=== PATIENT | female | born 1940 | race Caucasian/White ===

== ENCOUNTER 2021-08-29 19:53 | Inpatient (IN) ==
--- NOTE | 2021-08-29 21:51 | XRay Report ---
LEFT FEMUR 2 VIEWS CLINICAL HISTORY: Fall with left hip injury. FINDINGS: AP and crosstable lateral views of the left femur are obtained. No prior studies are availa ble for comparison at the time of dictation. The skeletal structures are osteopenic. There is a mildl y angulated intertrochanteric fracture of the left femur. Overlying soft tissue edema is noted. The d istal femur appears intact. The visualized bony pelvis is maintained. A right hip arthroplasty is par tially visualized. Moderate degenerative joint space narrowing is noted in the left hip. The left kne e joint is grossly maintained. IMPRESSION: Intertrochanteric left femoral fracture as above. Electronically signed by: Gordon Martinez M.D. 08/29/2021 9:50 PM
[2021-08-29] MEDS ORDERED: ONDANSETRON INJ 2 MG/ML 2 ML VIAL IV STA (21:53)
[2021-08-29] MEDS ORDERED: SODIUM CHLORIDE 0.9% 1000ML 1,000 ML IV SCH (22:00)
--- NOTE | 2021-08-29 22:03 | Emergency Department Note ---
History of Present Illness General Chief complaint: Fall Stated complaint: GLF- THIGH PAIN Time Seen by Provider: 08/29/21 20:21 History of Present Illness 81-year-old female presents to the ED with a chief complaint that she tripped over a hose on the ground causing her self to fall backwards mainly onto her le ft buttock area. She states that she was unable to get up on her own. She was helped up and came to the ED by ambulance. She complains of pain in the left femur area. She states that it sometimes is proximal and sometimes distal. She denies any other injuries. She states that she did not hit her head or have loss of consciousness. She denies any neck or back pains. Denies any abdominal pains, chest pains or shortness of breath. No recent illness. Denies presyncopal symptoms. Home Medications Medication Instructions Recorded Confirmed Type varicella-zoster glycoE [id number] 0.5 ml IM .COMPLEX #1 ea 12/28/20 05/28/21 Rx adj(PF) 50 mcg/0.5 mL IM susp, kit (Shingrix (PF)) Allergies Allergy/AdvReac Type Severity Reaction Status Date / Time acetaminophen [From Tylenol] AdvReac Verified 05/28/21 08:11 Past Med/Surg History Medical History HTN (hypertension) NO MEDS/PT DENIES Surgical History History of ankle surgery Rt History of cataract surgery LEFT History of colonoscopy History of surgery on right wrist History of tonsillectomy History of wisdom tooth extraction Status post hip replacement Rt Partial Family History Mother Breast cancer Brother Stroke Father Bladder cancer Other No family history of adverse response to anesthesia Denies family history of Ovarian cancer Prostate cancer Myocardial infarction Colorectal cancer Social History Smoking Status: Never smoker Second Hand Exposure: No; Hx Alcohol Use: No Hx Substance Use: No Preferred Language: Telugu Communication Ability: Effective Visual Impairment: Limited Hearing Ability: Normal Polymerization Helper Required: No Beliefs That Will Affect Care: Jehovah'S Witness Jehovah'S Witness Beliefs: BAPTISM marital status: Current Living Situation: Spouse current occupational status: retired How many Children do You have: 1 Feels Safe at Home: Yes Childhood Exposure to Second-Hand Smoke: No caffeine: Yes during the past year weight has: remained stable Dental Care, Regularly: Yes Physical Activity Frequency: Daily Seatbelt Use: always Sunscreen Use: Yes Assistive Devices: Contacts and Walker Review of Systems A total of 10 systems reviewed and were otherwise negative Physical Exam Vital Signs Vital Signs - 24 hr 08/29/21 19:56 Temperature 36.5 C Temperature Source Temporal Artery Scan Pulse Rate 95 H Respiratory Rate 18 Respiratory Effort / Characteristics Non-Labored Spontaneous Respiratory Depth Normal Respiratory Pattern Regular Blood Pressure 193/115 H Blood Pressure Mean 141 Blood Pressure Position Sitting Pulse Oximetry 97 Oxygen Delivery Method Room Air Sepsis Recent Fever Within 48 Hours No Sepsis New/Unexplained Change in Mental Status No Sepsis Action Taken by Nursing No Action Required CONSTITUTIONAL/VITAL SIGNS: Reviewed / noted above. GENERAL: Non-toxic in appearance. INTEGUMENTARY: Warm, dry, and [place]. HEAD: Normocephalic. EYES: without scleral icterus or trauma. ENT/OROPHARYNX: clear and moist. LYMPHADENOPATHY/NECK: Is supple without lymphadenopathy or meningismus. RESPIRATORY: Clear to auscultation bilaterally. No increased work of breathing. CARDIOVASCULAR: Regular rate and rhythm. GI/ABDOMEN: Soft and nontender. No organomegaly or pulsatile mass. EXTREMITIES: Warm and well perfused. The patient does not have any rotation or shortening. She has minimal pain with axial loading of the femur. The pain is primarily proximal, but she states occasionally it is distal. Range of motion with minimal discomfort BACK: No CVA tenderness. NEUROLOGICAL: Intact without focal deficits. PSYCHIATRIC: normal affect. MUSCULOSKELETAL: Normally developed with good muscle tone. TRIAGE NURSING DOCUMENTATION REVIEWED. Course Administered Medications Sodium Chloride (Nss 1000ml) 1,000 mls @ 250 mls/hr IV .Q4H DENSIE Stop: 08/30/21 01:59 Last Admin: 08/29/21 22:08 Dose: 250 mls/hr Documented by: [id number] Discontinued Medications Ondansetron HCl (Ondansetron Inj 2 Mg/Ml 2 Ml Vial) 4 mg IV NOW STA Stop: 08/29/21 21:54 Last Admin: 08/29/21 22:08 Dose: 4 mg Documented by: [id number] Medical Decision Making Differential Diagnosis Differential includes close head injury, intracranial bleed, facial trauma, cervical spine trauma, chest and thoracic trauma, abdominal and intra-abdominal trauma, spine neurologic trauma, extremity trauma. Medical Records Attestation: I reviewed the patient's medical records. Home Medications Current Medication List: was personally reviewed by me Laboratory Data Attestation: I reviewed the patient's lab results. Result diagrams: 08/29/21 22:05 08/29/21 22:05 Lab Results 08/29/21 Range/Units 22:05 WBC 14.67 H (4.8-10.8) K/uL RBC 4.34 (4.2-5.4) M/uL Hgb 13.6 (12.0-16.0) g/dL Hct 40.9 (37-47) % MCV 94.2 (80-100) fL MCH 31.3 (25-34) pg MCHC 33.3 (32-36) g/dL RDW Std Deviation 50.1 H (36.4-46.3) fL RDW Coeff of James 14.6 H (11.5-14.5) % Plt Count 322 (130-400) K/uL MPV 9.7 (7.4-10.4) fL Immature Gran % (Auto) 0.3 % Neut % (Auto) 87.3 % Lymph % (Auto) 6.8 % [place] % (Auto) 5.4 % Eos % (Auto) 0.1 % Baso % (Auto) 0.1 % Neut # (Auto) 12.80 H (1.4-6.5) K/uL Lymph # (Auto) 1.00 L (1.2-3.4) K/uL [place] # (Auto) 0.79 H (0.11-0.59) K/uL Eos # (Auto) 0.01 (0-0.5) K/uL Baso # (Auto) 0.02 (0-0.2) K/uL Immature Gran # (Auto) 0.05 H (0.00-0.02) K/uL Imaging Data Radiologist's Impression: Femur X-Ray 08/29/21 20:19 LEFT FEMUR 2 VIEWS CLINICAL HISTORY: Fall with left hip injury. FINDINGS: AP and crosstable lateral views of the left femur are obtained. No prior studies are available for comparison at the time of dictation. The skeletal structures are osteopenic. There is a mildly angulated intertrochanteric fracture of the left femur. Overlying soft tissue edema is noted. The distal femur appears intact. The visualized bony pelvis is maintained. A right hip arthroplasty is partially visualized. Moderate degenerative joint space narrowing is noted in the left hip. The left knee joint is grossly maintained. IMPRESSION: Intertrochanteric left femoral fracture as above. Electronically signed by: Gordon Martinez M.D. 08/29/2021 9:50 PM ECG Data Attestation: I personally reviewed and interpreted this ECG as follows: Additional Comments: Twelve-lead EKG: Per my interpretation there is a normal sinus rhythm at a rate of 93. No ST elevation. No PVCs. Normal QTC MDM Narrative 81-year-old female presents with a chief complaint of a fall. Details listed above. Did not strike her head or lose consciousness. Not presyncopal. Lost her balance. Landed on her left buttock region. X-ray shows a left inter trochanteric femur fracture. Hip fracture order set has been ordered. The patient will be seen by the hospitalist. Twelve-lead EKG shows normal sinus rhythm. CBC was unremarkable. Impression & Plan Closed intertrochanteric fracture of left hip Discharge Plan Visit Data Chief Complaint: Fall Stated Complaint: GLF- THIGH PAIN ED Provider: Nicolas Jacobo Discharge Problem: Closed intertrochanteric fracture of left hip Forms Stand Alone Forms: My [facility] Prescriptions Prescriptions: No Action Shingrix (PF) 50 mcg/0.5 mL suspension for reconstitution 0.5 ml IM .COMPLEX Qty: 1 RF: 1 Referrals Referrals: Lev Pool DO [Primary Care Provider] - Discharge Problem: Closed intertrochanteric fracture of left hip Qualifiers: Encounter type: initial encounter Fracture alignment: nondisplaced Qualified Code(s): S72.145A - Nondisplaced intertrochanteric fracture of left femur, initial encounter for closed fracture
[2021-08-29 22:12] LABS: Basophils # (auto) 0.02 K/uL (0-0.2); Basophils % (auto) 0.1 %; Eosinophils # (auto) 0.01 K/uL (0-0.5); Eosinophils % (auto) 0.1 %; Hematocrit (blood only) 40.9 % (37-47); Hemoglobin 13.6 g/dL (12.0-16.0); Immature Granulocytes # (auto) 0.05 K/uL (0.00-0.02); Immature Granulocytes % (auto) 0.3 %; Lymphocytes % (auto) 6.8 %; Mean Corpuscular Hemoglobin 31.3 pg (25-34); Mean Corpuscular Hgb Conc 33.3 g/dL (32-36); Mean Corpuscular Volume 94.2 fL (80-100); Mean Platelet Volume 9.7 fL (7.4-10.4); Monocytes # (auto) 0.79 K/uL (0.11-0.59); Monocytes % (auto) 5.4 %; Neutrophils % (auto) 87.3 %; Platelet Count 322 K/uL (130-400); RDW Coefficient of Variation 14.6 % (11.5-14.5); RDW Standard Deviation 50.1 fL (36.4-46.3); Red Blood Count 4.34 M/uL (4.2-5.4); White Blood Count 14.67 K/uL (4.8-10.8)
--- NOTE | 2021-08-29 22:20 | History & Physical Report ---
Date of Service August 29, 2021 Assessment & Plan (1) Closed intertrochanteric fracture of left hip: Plan: relatively healthy 81 yo F admitted for management of femur fracture. L Intertrochanteric Femur Fracture - orthopedics consult for surgical management - NPO @ [place] - iv morphine prn for pain control - PT/OT HTN - managed without medications? patient states she only has a problem in the hospital, but [facility] on medications [facility] - goal BP <220/120 Frequent Falls - appears to be mechanical fall due to sidewalk misalignment? - no electrolyte abnormalities - TTE ordered for evaluation of DVT ppx: SCD thigh FEN/GI: NPO @[place] Code Status: DNR/DNI Dispo: Med/Surg (2) Frequent falls: (3) Hypertension: History of Present Illness Primary Care Provider: Lev Pool, DO 81 yo F with hx partial R hip replacement admitted for L intertrochanteric femur fracture due to mechanical fall. She states she was walking on the sidewalk and fell backward on her left side. She denies any lightheadedness or dizzines leading up to the fall. Pain currently well controlled while laying in bed. was able to ambulate to bathroom with some assistance. Denies any numbness/tingling. Allergies Allergy/AdvReac Type Severity Reaction Status Date / Time acetaminophen [From Tylenol] AdvReac Gastrointestinal Verified 08/29/21 22:29 Upset Home Medications Medication Instructions Recorded Confirmed Type varicella-zoster glycoE [id number] 0.5 ml IM .COMPLEX #1 ea 12/28/20 08/29/21 Rx adj(PF) 50 mcg/0.5 mL IM susp, kit (Shingrix (PF)) aspirin 81 mg tablet,delayed 81 mg PO DAILY 08/29/21 08/29/21 History release (Aspirin Low Dose) Past Med/Surg History Medical History HTN (hypertension) NO MEDS/PT DENIES Surgical History History of ankle surgery Rt History of cataract surgery LEFT History of colonoscopy History of surgery on right wrist History of tonsillectomy History of wisdom tooth extraction Status post hip replacement Rt Partial Family History Mother Breast cancer Brother Stroke Father Bladder cancer Other No family history of adverse response to anesthesia Denies family history of Ovarian cancer Prostate cancer Myocardial infarction Colorectal cancer Social History Smoking Status: Never smoker Second Hand Exposure: No; Hx Alcohol Use: No Hx Substance Use: No Preferred Language: Maori Communication Ability: Effective Visual Impairment: Limited Hearing Ability: Normal Stem Crusher Required: No Beliefs That Will Affect Care: Muslim Muslim Beliefs: RELIGIOUS marital status: Current Living Situation: Spouse current occupational status: retired How many Children do You have: 1 Feels Safe at Home: Yes Childhood Exposure to Second-Hand Smoke: No caffeine: Yes during the past year weight has: remained stable Dental Care, Regularly: Yes Physical Activity Frequency: Daily Seatbelt Use: always Sunscreen Use: Yes Assistive Devices: Cane and Walker Review of Systems Constitutional: no fever, no chills, no body aches and no fatigue Respiratory: no cough and no dyspnea Cardiovascular: no chest pain, no dyspnea and no edema Gastrointestinal: no abdominal pain, no nausea, no vomiting, no constipation and no diarrhea/loose stools Musculoskeletal: + deformity and + limited range of motion; no back pain, no neck pain, no loss of height, no joint pain, no stiffness and no myalgia Neurologic: + gait abnormality and + falls; no unsteadiness, no generalized weakness, no loss of sensation and no numbness Physical Exam Physical Exam: Constitutional: well appearing elderly female sitting in bed in NAD Eyes: EOMI, pupils equal and reactive bilaterally, no scleral icterus Cardiac: RRR, no murmurs, gallops or rubs. Normal S1, S2 Pulm: CTA BL, no wheezes, rhonchi, crackles or rubs, moving air well throughout both lungs Abd: soft, nontender, nondistended, normal bowel sounds, no rebound or guarding Extremities: 2+ peripheral pulses, no edema,externally rotated left leg Neuro: normal sensation, full ROM at L ankle Results & Data Results & Data ([facility]) Vital Signs (Past 12 Hours) Vital Signs Temp Pulse Resp BP Pulse Ox 08/29/21 19:56 36.5 C 95 H 18 193/115 H 97 Laboratory Results Laboratory Results WBC 14.67 K/uL (4.8-10.8) H 08/29/21 22:05 RBC 4.34 M/uL (4.2-5.4) 08/29/21 22:05 Hgb 13.6 g/dL (12.0-16.0) 08/29/21 22:05 Hct 40.9 % (37-47) 08/29/21 22:05 MCV 94.2 fL (80-100) 08/29/21 22:05 MCH 31.3 pg (25-34) 08/29/21 22:05 MCHC 33.3 g/dL (32-36) 08/29/21 22:05 RDW Std Deviation 50.1 fL (36.4-46.3) H 08/29/21 22:05 RDW Coeff of James 14.6 % (11.5-14.5) H 08/29/21 22:05 Plt Count 322 K/uL (130-400) 08/29/21 22:05 MPV 9.7 fL (7.4-10.4) 08/29/21 22:05 Immature Gran % (Auto) 0.3 % 08/29/21 22:05 Neut % (Auto) 87.3 % 08/29/21 22:05 Lymph % (Auto) 6.8 % 08/29/21 22:05 [place] % (Auto) 5.4 % 08/29/21 22:05 Eos % (Auto) 0.1 % 08/29/21 22:05 Baso % (Auto) 0.1 % 08/29/21 22:05 Neut # (Auto) 12.80 K/uL (1.4-6.5) H 08/29/21 22:05 Lymph # (Auto) 1.00 K/uL (1.2-3.4) L 08/29/21 22:05 [place] # (Auto) 0.79 K/uL (0.11-0.59) H 08/29/21 22:05 Eos # (Auto) 0.01 K/uL (0-0.5) 08/29/21 22:05 Baso # (Auto) 0.02 K/uL (0-0.2) 08/29/21 22:05 Immature Gran # (Auto) 0.05 K/uL (0.00-0.02) H 08/29/21 22:05 PT 10.3 Seconds (9.0-12.0) 08/29/21 22:05 INR 1.0 (0.9-1.1) 08/29/21 22:05 APTT 24.0 Seconds (21.0-31.0) 08/29/21 22:05 PTT Ratio 0.9 08/29/21 22:05 Sodium 143 mmol/L (136-145) 08/29/21 22:05 Potassium 3.5 mmol/L (3.5-5.1) 08/29/21 22:05 Chloride 112 mmol/L (98-107) H 08/29/21 22:05 Carbon Dioxide 22 mmol/L (21-32) 08/29/21 22:05 Anion Gap 9.0 (3-11) 08/29/21 22:05 BUN 12 mg/dl (7-18) 08/29/21 22: Creatinine 0.94 mg/dl (0.6-1.2) 08/29/21: Est Cr Clr Drug Dosing Not Reportable 08/29/21 22:05 Est GFR ( Amer) 65.0 ml/min 08/29/21 22: Est GFR (Non-Af Amer) 56.1 ml/min 08/29/21 22:05 BUN/Creatinine Ratio 13.1 (10-20) 08/29/21 22: Glucose 144 mg/dl (70-99) H 08/29/21 22: Calcium 9.0 mg/dl (8.5-10.1) 08/29/21 22:05 Total Bilirubin 0.4 mg/dl (0.2-1) 08/29/21 22:05 AST 14 U/L (15-37) L 08/29/21 22:05 ALT 18 (12-78) 08/29/21 22:05 Alkaline Phosphatase 72 U/L (45-117) D 08/29/21 22:05 Total Protein 7.4 gm/dl (6.4-8.2) 08/29/21 22:05 Albumin 3.7 gm/dl (3.4-5.0) 08/29/21 22: Globulin 3.7 gm/dl (2.5-4.0) 08/29/21 22:05 Albumin/Globulin Ratio 1.0 (0.9-2) 08/29/21 22:05 Urine Color Yellow 08/29/21 23:10 Urine Appearance Clear (Clear) 08/29/21 23:10 Urine pH 6.0 (4.5-7.5) 08/29/21 23:10 Ur Specific [place] 1.016 (1.000-1.030) 08/29/21 23:10 Urine Protein Trace (Negative) H 08/29/21 23:10 Urine Glucose (UA) Negative (Negative) 08/29/21 23:10 Urine Ketones 1+ (Negative) H 08/29/21 23:10 Urine Blood 2+ (Negative) H 08/29/21 23:10 Urine Nitrite Negative (Negative) 08/29/21 23:10 Urine Bilirubin Negative (Negative) 08/29/21 23:10 Urine Urobilinogen Negative (Negative) 08/29/21 23:10 Ur Leukocyte Esterase Negative (Negative) 08/29/21 23:10 Urine WBC (Auto) 0 /hpf (0-5) 08/29/21 23:10 Urine RBC (Auto) 10-30 /hpf (0-4) H 08/29/21 23:10 U Hyaline Cast (Auto) 1-5 /lpf (0-5) 08/29/21 23:10 U Epithel Cells (Auto) 0-5 /lpf (0-5) 08/29/21 23:10 Urine Bacteria (Auto) Negative (Negative) 08/29/21 23:10 Impressions Femur X-Ray 08/29/21 20:19 LEFT FEMUR 2 VIEWS CLINICAL HISTORY: Fall with left hip injury. FINDINGS: AP and crosstable lateral views of the left femur are obtained. No prior studies are available for comparison at the time of dictation. The skeletal structures are osteopenic. There is a mildly angulated intertrochanteric fracture of the left femur. Overlying soft tissue edema is noted. The distal femur appears intact. The visualized bony pelvis is maintained. A right hip arthroplasty is partially visualized. Moderate degenerative joint space narrowing is noted in the left hip. The left knee joint is grossly maintained. IMPRESSION: Intertrochanteric left femoral fracture as above. Electronically signed by: Gordon Martinez M.D. 08/29/2021 9:50 PM Supervising Physician Co-Signing Physician Notes Attending addendum: I have physically seen this patient, have supervised the medical residents activities, and agree with the H&P unless as otherwise noted. Assessment and Plan: Closed left intratrochanteric femur fracture- NPO after midnight Acetaminophen 650 mg p.o. every 6 hours as needed mild pain or fever Morphine as noted for moderate to severe pain Orthopedic surgery aware and consulted Frequent falls- Mechanical PT/OT following surgical repair and to address frequent falls Remaining orders and notations as noted Resident Activity Tracking Resident Involvement: Resident Care Provided Care Provided: Adult Hospital Medicine (1) Closed intertrochanteric fracture of left hip Encounter type: initial encounter Fracture alignment: nondisplaced Qualified Code(s): S72.145A - Nondisplaced intertrochanteric fracture of left femur, initial encounter for closed fracture
[2021-08-29 22:28] LABS: Alanine Aminotransferase 18 (12-78); Albumin Level 3.7 gm/dl (3.4-5.0); Aspartate Aminotransferase 14 U/L (15-37); BUN Creatinine Ratio 13.1 (10-20); Blood Urea Nitrogen 12 mg/dl (7-18); Carbon Dioxide 22 mmol/L (21-32); Chloride 112 mmol/L (98-107); Est GFR (Non-African American) 56.1 ml/min; Glucose 144 mg/dl (70-99); Potassium 3.5 mmol/L (3.5-5.1); Sodium 143 mmol/L (136-145)
[2021-08-29 22:31] LABS: Alkaline Phosphatase 72 U/L (45-117); Globulin 3.7 gm/dl (2.5-4.0); Total Protein 7.4 gm/dl (6.4-8.2)
[2021-08-29 22:32] LABS: Partial Thromboplastin Ratio 0.9; Prothrombin Time 10.3 Seconds (9.0-12.0)
[2021-08-29 23:20] LABS: Bilirubin,Total 0.4 mg/dl (0.2-1)
[2021-08-29 23:32] LABS: Appearance Urine Clear (Clear); Bacteria Urine Automated Negative (Negative); Bilirubin Urine Negative (Negative); Blood Urine 2+ (Negative); Color Urine Yellow; Epithelial Cell Urine Auto 0-5 /lpf (0-5); Glucose Urine UA Negative (Negative); Ketones Urine 1+ (Negative); Leukocyte Esterase Urine Negative (Negative); Nitrite Urine Negative (Negative); Protein Urine Trace (Negative); Specific Gravity Urine 1.016 (1.000-1.030); Urobilinogen Urine Negative (Negative); WBC Urine Automated 0 /hpf (0-5)
[2021-08-29] MEDS ORDERED: hydrALAZINE HCL 20 MG/ML VIAL IV PRN (23:35)
[2021-08-30] MEDS ORDERED: MoRPHine SULFATE 2 MG/ML CARP IV PRN (02:16)
[2021-08-30] MEDS: MoRPHine SULFATE 2 MG/ML CARP IV PRN (04:49)
[2021-08-30 05:59] LABS: Basophils # (auto) 0.01 K/uL (0-0.2); Basophils % (auto) 0.1 %; Hematocrit (blood only) 36.5 % (37-47); Hemoglobin 11.8 g/dL (12.0-16.0); Immature Granulocytes # (auto) 0.02 K/uL (0.00-0.02); Immature Granulocytes % (auto) 0.2 %; Lymphocytes # (auto) 1.22 K/uL (1.2-3.4); Mean Corpuscular Hemoglobin 30.6 pg (25-34); Mean Corpuscular Hgb Conc 32.3 g/dL (32-36); Mean Corpuscular Volume 94.8 fL (80-100); Monocytes # (auto) 1.04 K/uL (0.11-0.59); Monocytes % (auto) 8.5 %; Neutrophils # (auto) 9.97 K/uL (1.4-6.5); Neutrophils % (auto) 81.2 %; Platelet Count 325 K/uL (130-400); RDW Coefficient of Variation 14.9 % (11.5-14.5); RDW Standard Deviation 51.1 fL (36.4-46.3); Red Blood Count 3.85 M/uL (4.2-5.4); White Blood Count 12.26 K/uL (4.8-10.8)
--- NOTE | 2021-08-30 07:29 | XRay Report ---
XR chest 1V portable HISTORY: Left hip fracture. Preop. Fall. COMPARISON: None. FINDINGS: The lungs are hyperexpanded. No focal lung consolidations to suggest pneumonia. No evidence for pulmonary edema. The heart is mildly enlarged. No pleural effusions. No pneumothorax. No acute f ractures identified. IMPRESSION: Mild cardiomegaly. Otherwise, no acute process within the chest. ACT 112: Negative or not required by law. Electronically signed by: Denis Perez M.D. 08/30/2021 7:28 AM
--- NOTE | 2021-08-30 08:36 | Hospitalist Progress Note ---
Date of Service August 30, 2021 Assessment & Plan (1) Closed intertrochanteric fracture of left hip: Plan: Previously healthy 81 yo F admitted for management of femur fracture. L Intertrochanteric Femur Fracture - orthopedics consult for surgical management -- scheduled for OR today - NPO - iv morphine prn for pain control - PT/OT after surgery to evaluate rehab needs HTN - managed without medications? patient states she only has a problem in the hospital, but was on medications in [place] - goal BP <220/120 Frequent Falls - appears to be mechanical fall due to sidewalk misalignment? - no electrolyte abnormalities - TTE ordered for evaluation of - EKG with significant movement artifact but seems to be NSR, not afib DVT ppx: SCD thigh FEN/GI: NPO pending surgery Code Status: DNR/DNI Dispo: Med/Surg (2) Frequent falls: (3) Hypertension: Admission and Anticipated Discharge Date Admission Date: August 29, 2021 Subjective Seen at bedside this AM. Laying in bed comfortably. Reports she is usually independent. She says she tripped on a misaligned sidewalk. Per the patient, a young couple found her on the ground, and at the time the lady that found her told her she had fallen multiple times as well by tripping on the same spot as the patient. She said she had been looking around her towards the [place] as it was a beautiful day, and ended up tripping. Denies any dizziness, lightheadedness, palpitations, CP, SOB, LOC, neuro deficits. Review of Systems Review of Systems: per subjective Physical Exam Physical Exam: GENERAL: A&Ox3. NAD. CHEST/LUNGS: CTAB A/P. No crackles, wheezes, rales, rhonchi. HEART: RRR. No m/g/r. ABDOMEN: NT/ND, soft. BS+ x4 EXTREMITIES: No edema, radial and pedal pulses intact. Left leg slightly externally rotated. Pain with movement. SKIN: Warm and dry. No rashes or lesions. PSYCHIATRIC: Euthymic affect, no SI, no pressured speech, no hallucinations Results & Data Results & Data ([facility]) Vital Signs (Past 12 Hours) Vital Signs Temp Pulse Pulse Resp BP BP BP 08/30/21 06:56 36.8 C 97 H 16 166/76 H 08/30/21 05:43 36.5 C 101 H 18 195/92 H 08/30/21 04:52 98 H 18 169/85 H 08/30/21 02:40 66 20 08/30/21 02:16 66 20 08/30/21 01:50 68 20 168/78 H 08/30/21 00:00 100 H 20 173/84 H 08/29/21 23:00 203/124 H 08/29/21 21:55 68 20 Pulse Ox 08/30/21 06:56 94 08/30/21 05:43 94 08/30/21 04:52 98 08/30/21 02:40 98 08/30/21 02:16 97 08/30/21 01:50 98 08/30/21 00:00 98 08/29/21 23:00 08/29/21 21:55 97 Resident Activity Tracking Resident Involvement: Resident Care Provided Care Provided: Adult Hospital Medicine (1) Closed intertrochanteric fracture of left hip Encounter type: initial encounter Fracture alignment: nondisplaced Qualified Code(s): S72.145A - Nondisplaced intertrochanteric fracture of left femur, initial encounter for closed fracture
--- NOTE | 2021-08-30 10:54 | XCELERA ---
[id number]
[2021-08-30] MEDS ORDERED: fentaNYL citrate 100 MCG/2 ML VIAL ONE (11:24)
--- NOTE | 2021-08-30 12:23 | Anesthesiology Consultation ---
Date of Service August 30, 2021 Assessment & Plan (1) Encounter for pre-operative examination: Chart Review Chart Review: Acceptable Risk for Surgery and Patient NOT seen in Pre Admission Testing Consults Requested none History Surgery Operation Date: 08/30/21 11:30 Proposed Procedures p Left Troch Nail Hip Fracture - Oswaldo Cramer MD Height/Weight Height: 5 ft 6 in Weight: 53.524 kg Allergies Allergy/AdvReac Type Severity Reaction Status Date / Time acetaminophen [From Tylenol] AdvReac Gastrointestinal Verified 08/29/21 22:29 Upset Medications Home Medications Medication Instructions Recorded Confirmed Last Taken varicella-zoster glycoE [id number] 0.5 ml IM .COMPLEX #1 ea 12/28/20 08/29/21 Unknown adj(PF) 50 mcg/0.5 mL IM susp, kit (Shingrix (PF)) aspirin 81 mg tablet,delayed 81 mg PO DAILY 08/29/21 08/29/21 08/29/21 release (Aspirin Low Dose) Active Medications Generic Name Dose Route Start Last Admin Trade Name Freq PRN Reason Stop Dose Admin Hydralazine HCl 5 mg 08/29/21 23:35 08/29/21 23:53 Hydralazine Hcl 20 Mg/Ml Vial IV 09/28/21 23:34 5 mg Q30M PRN Administration Diastolic HTN >110 Morphine Sulfate 2 mg 08/30/21 02:22 08/30/21 04:49 Morphine Sulfate 2 Mg/Ml Carp IV 09/13/21 02:21 2 mg Q3H PRN Administration Pain (6,7,8,9,10) Past Medical History Medical History HTN (hypertension) NO MEDS/PT DENIES Past Family History Family History Mother Breast cancer Brother Stroke Father Bladder cancer Other No family history of adverse response to anesthesia Denies family history of Ovarian cancer Prostate cancer Myocardial infarction Colorectal cancer Past Surgical History Surgical History History of ankle surgery Rt History of cataract surgery LEFT History of colonoscopy History of surgery on right wrist History of tonsillectomy History of wisdom tooth extraction Status post hip replacement Rt Partial Social History Smoking Status: Never smoker Hx Alcohol Use: No Hx Substance Use: No substance use type: does not use Physical Exam Vital Signs Last Vital Signs Temp 98.2 F 08/30/21 06:56 Pulse 97 H 08/30/21 06:56 Resp 16 08/30/21 06:56 BP 166/76 H 08/30/21 06:56 Pulse Ox 94 08/30/21 06:56 Testing Laboratory Results 08/30/21 05:23 08/29/21 22:05 PT 10.3 Seconds (9.0-12.0) 08/29/21 22:05 INR 1.0 (0.9-1.1) 08/29/21 22:05 APTT 24.0 Seconds (21.0-31.0) 08/29/21 22:05 Urine Color Yellow 08/29/21 23:10 Urine Appearance Clear (Clear) 08/29/21 23:10 Urine pH 6.0 (4.5-7.5) 08/29/21 23:10 Ur Specific [place] 1.016 (1.000-1.030) 08/29/21 23:10 Urine Protein Trace (Negative) H 08/29/21 23:10 Urine Glucose (UA) Negative (Negative) 08/29/21 23:10 Urine Ketones 1+ (Negative) H 08/29/21 23:10 Urine Nitrite Negative (Negative) 08/29/21 23:10 Ur Leukocyte Esterase Negative (Negative) 08/29/21 23:10 Urine WBC (Auto) 0 /hpf (0-5) 08/29/21 23:10 Urine RBC (Auto) 10-30 /hpf (0-4) H 08/29/21 23:10 U Hyaline Cast (Auto) 1-5 /lpf (0-5) 08/29/21 23:10 U Epithel Cells (Auto) 0-5 /lpf (0-5) 08/29/21 23:10 Urine Bacteria (Auto) Negative (Negative) 08/29/21 23:10 Electrocardiogram Date: 08/29/21 Findings: + NSR @ Chest X-Ray Date: 08/29/21 Findings: + cardiomegaly Echocardiogram Date: 08/30/21 EF: 65-70 Valvular Disease: + AI (mild-mod); no
[2021-08-30] MEDS ORDERED: MIDAZOLAM HCL 1 MG/ML 2ML VIAL ONE (12:26)
--- NOTE | 2021-08-30 13:14 | Orthopedic Consultation ---
Date of Consultation August 30, 2021 Assessment & Plan (1) Closed left hip fracture: I reviewed the diagnosis with the patient. Treatment options were discussed. Surgery is recommended to regain the ability to ambulate. Discussed that this is potentially an unstable fracture. There is a risk for avascular necrosis with this particular fracture. However if we can get it to heal I think that is the most optimal outcome as opposed to an arthroplasty. Reviewed the risks and benefits of surgery with her at length. I also spoke with her by phone. Patient elects to proceed with surgery. All questions were answered. Informed consent was signed. Proceed to the operating room today. Readmit to internal medicine after surgery. History of Present Illness Reason for Consultation: Left hip fracture Attending Physician: Cristofer Wesley History of Present Illness 81 yo F with hx partial R hip replacement admitted for L intertrochanteric femur fracture due to mechanical fall. She states she was walking on the sidewalk and fell backward on her left side. She denies any lightheadedness or dizzines leading up to the fall. She was brought to the ER where x-rays were done and she was admitted to internal medicine service last night. Orthopaedics was consulted for management of her left femur fracture Patient was seen and examined on the floor. She reports her pain level is not too bad in bed. She points to her left thigh as where she feels the pain. Denies numbness/tingling. Allergies Allergy/AdvReac Type Severity Reaction Status Date / Time acetaminophen [From Tylenol] AdvReac Gastrointestinal Verified 08/29/21 22:29 Upset Home Medications Medication Instructions Recorded Confirmed Type varicella-zoster glycoE [id number] 0.5 ml IM .COMPLEX #1 ea 12/28/20 08/29/21 Rx adj(PF) 50 mcg/0.5 mL IM susp, kit (Shingrix (PF)) aspirin 81 mg tablet,delayed 81 mg PO DAILY 08/29/21 08/29/21 History release (Aspirin Low Dose) Patient History Medical History HTN (hypertension) NO MEDS/PT DENIES Surgical History History of ankle surgery Rt History of cataract surgery LEFT History of colonoscopy History of surgery on right wrist History of tonsillectomy History of wisdom tooth extraction Status post hip replacement Rt Partial Family History Mother Breast cancer Brother Stroke Father Bladder cancer Other No family history of adverse response to anesthesia Denies family history of Ovarian cancer Prostate cancer Myocardial infarction Colorectal cancer Social History Smoking Status: Never smoker Second Hand Exposure: No; Hx Alcohol Use: No Hx Substance Use: No Preferred Language: Romanian Communication Ability: Effective Visual Impairment: Limited Hearing Ability: Normal Cement Finisher Required: No Beliefs That Will Affect Care: Rastafari Rastafari Beliefs: CHRISTIANITY marital status: Current Living Situation: Spouse current occupational status: retired How many Children do You have: 1 Feels Safe at Home: Yes Childhood Exposure to Second-Hand Smoke: No caffeine: Yes during the past year weight has: remained stable Dental Care, Regularly: Yes Physical Activity Frequency: Daily Seatbelt Use: always Sunscreen Use: Yes Assistive Devices: Cane and Walker Physical Exam Physical Exam: General Pleasant female in no acute distress alert and oriented x3. Left hip exam shows patient have a small area of bruising over the posterior lateral hip silver dollar sized in diameter. No skin lacerations. Left lower extremity is shortened relative to the right but not externally rotated. She fires EHL FHL tib and gastrocsoleus. Sensory intact light touch dorsal and plantar aspect of foot. Dorsalis pedis pulses palpable. Results & Data ([facility]) Vital Signs (Past 12 Hours) Vital Signs Temp Pulse Pulse Resp BP BP BP 08/30/21 12:54 36.8 C 93 H 18 160/99 H 08/30/21 06:56 36.8 C 97 H 16 166/76 H 08/30/21 05:43 36.5 C 101 H 18 195/92 H 08/30/21 04:52 98 H 18 169/85 H 08/30/21 02:40 66 20 08/30/21 02:16 66 20 08/30/21 01:50 68 20 168/78 H Pulse Ox 08/30/21 12:54 95 08/30/21 06:56 94 08/30/21 05:43 94 08/30/21 04:52 98 08/30/21 02:40 98 08/30/21 02:16 97 08/30/21 01:50 98 Diagnostic Findings I reviewed her x-rays of her left femur. Radiologist reads this as a intertrochanteric femur fracture. On my review the fracture is more like a Basicervical femoral neck fracture. This could potentially be unstable.
[2021-08-30] MEDS ORDERED: SODIUM CHLORIDE 0.9% INJ 10 ML VIAL ONE (13:32)
[2021-08-30] MEDS ORDERED: ceFAZolin 330 MG/ML 1 GM VIAL ONE ×2 (13:33)
[2021-08-30] MEDS ORDERED: PROPOFOL IV EMULSION 10 MG/ML 20 ML VIAL IV ONE (13:35)
[2021-08-30] MEDS ORDERED: DEXAMETHASONE SOD INJ 4 MG/ML VIAL ONE (13:35)
[2021-08-30] MEDS ORDERED: ONDANSETRON INJ 2 MG/ML 2 ML VIAL ONE (13:35)
[2021-08-30] MEDS ORDERED: LIDOCAINE 2% 2 ML VIAL/AMP(20MG/ML) INFIL ONE (13:35)
[2021-08-30] MEDS ORDERED: fentaNYL citrate 100 MCG/2 ML VIAL IV PRN (14:11)
[2021-08-30] MEDS ORDERED: ATROPINE SULFATE 0.1 MG/ML 10ML SYR IV PRN (14:11)
[2021-08-30] MEDS ORDERED: ePHEDrine sulfate 50 MG/ML AMP IV PRN (14:11)
[2021-08-30] MEDS ORDERED: ONDANSETRON INJ 2 MG/ML 2 ML VIAL IV PRN ×2 (14:11→18:45)
[2021-08-30] MEDS ORDERED: ceFAZolin 2000MG 2,000 MG/15 ML SYR IV ONE (14:17)
--- NOTE | 2021-08-30 15:31 | Fluoroscopy Report ---
INTRAOPERATIVE RADIOGRAPHS CLINICAL HISTORY: Open reduction and internal fixation of the left proximal femur. Fluoroscopy time: 83 seconds. FINDINGS: 2 spot fluoroscopic views of the left proximal femur are correlated with radiographs dated 08/29/2021. A dynamic compression screw and a cortical lag screw have been placed in the intertrochante tommy left femur transfixing an intertrochanteric fracture. 2 cortical lag screws transfix the buttress plate of the compression screw. Overlying soft tissue edema is noted. IMPRESSION: Intraoperative radiographs from open reduction and internal fixation of the left proximal femur. Electronically signed by: Gordon Martinez M.D. 08/30/2021 3:30 PM
--- NOTE | 2021-08-30 15:38 | Operative Report ---
Post Operative Report Pre & Post Diagnosis Operation Date: 08/30/21 11:30 Pre-Op Diagnosis: Left femur fracture Post-Op Diagnosis: Left femur fracture I identified the patient and participated in the time-out.: Yes Procedure Operation Date: 08/30/21 11:30 Actual Procedures p Open Reduction Internal Fixation Left Intertrochanteric Femur Fracture(Left) - Oswaldo Cramer MD Surgeon Doris Cramer Research And Development Tester Benjamin Holland MD Estimated Blood Loss 50 Findings Consistent with Post-Op Diagnosis Consistent with post op diagnosis Specimens no specimens Description of Procedure I participated in prepping dressing and assisted DR. Cramer during the procedure. Please see Dr. Cramer note I attest to the content of the Intraoperative Record and any orders documented therein. Any exceptions are noted below. Supervising Physician Co-Signing Physician Notes Dr. Cramer
--- NOTE | 2021-08-30 15:57 | Anesthesiology Progress Note ---
Date of Service August 30, 2021 Anesthesia Post Procedure Vital Signs Vital Signs: Temp Pulse Pulse Pulse Resp BP BP 08/30/21 15:45 86 18 08/30/21 15:36 98.1 F 89 16 08/30/21 12:54 98.2 F 93 H 18 08/30/21 06:56 98.2 F 97 H 16 08/30/21 05:43 97.7 F 101 H 18 195/92 H 08/30/21 04:52 98 H 18 169/85 H 08/30/21 02:40 66 20 08/30/21 02:16 66 20 08/30/21 01:50 68 20 168/78 H 08/30/21 00:00 100 H 20 173/84 H 08/29/21 23:00 203/124 H 08/29/21 21:55 68 20 08/29/21 19:56 97.7 F 95 H 18 193/115 H BP Pulse Ox 08/30/21 15:45 163/89 H 100 08/30/21 15:36 148/79 H 96 08/30/21 12:54 160/99 H 95 08/30/21 06:56 166/76 H 94 08/30/21 05:43 94 08/30/21 04:52 98 08/30/21 02:40 98 08/30/21 02:16 97 08/30/21 01:50 98 08/30/21 00:00 98 08/29/21 23:00 08/29/21 21:55 97 08/29/21 19:56 97 Transfer of Care Handoff Completed per policy Notes Mental Status: alert / awake / arousable and participated in evaluation Patient Amnestic to Procedure: Yes Nausea / Vomiting: adequately controlled Pain: adequately controlled Airway Patency, RR, SpO2: stable & adequate BP & HR: stable & adequate Hydration State: stable & adequate Anesthetic Complications: no major complications apparent and Pt Satisfied with anesthetic care
[2021-08-30] MEDS ORDERED: NON-FORMULARY MEDICATION (Varicella-Zoster Ge-As01b (Pf) [Shingrix (Pf)] 50 mcg/0.5 mL sus IM SCH (16:15)
[2021-08-30] MEDS ORDERED: hydrALAZINE HCL 20 MG/ML VIAL IV STA (16:54)
--- NOTE | 2021-08-30 17:27 | Operative Report (OR) ---
DATE OF SURGERY: 08/30/2021 PREOPERATIVE DIAGNOSIS: Left intertrochanteric femur fracture. POSTOPERATIVE DIAGNOSIS: Left intertrochanteric femur fracture. OPERATION PERFORMED: Open reduction and internal fixation of left intertrochanteric femur fracture with a sliding hip screw and derotation screw. SURGEON: Oswaldo Cramer MD. TOUR ACTOR: Dejah Holland MD. ESTIMATED BLOOD LOSS: 50 mL. INTRAVENOUS FLUIDS: 700 mL crystalloid. SPECIMENS: None. COMPLICATIONS: None. IMPLANTS: 1. One Synthes 135-degree short barrel 2-hole plate. 2. 95 mm DHS screw. 3. Two 4.5 mm cortex screws measuring 38 and 36 mm. 4. A 6.5 mm cannulated screw measuring 90 mm in length. INDICATIONS: The patient is an 81-year-old female who fell yesterday on the sidewalk, landing on her left hip. She had immediate onset of pain and difficulty ambulating. She was brought to the Emergency Room where x-rays demonstrated intertrochanteric femur fracture. She was admitted by Internal Medicine. Orthopedics was consulted. I saw the patient this morning. Surgery was recommended to reduce and stabilize the fracture to allow her to regain ability to ambulate. After reviewing all the risks and benefits of surgery, she elected to proceed. All questions were answered, informed consent was signed. OPERATIVE FINDINGS: Fracture was reduced and stabilized with a 2-hole DHS screw and sideplate with a derotation screw. DESCRIPTION OF OPERATION: The patient was identified in the preoperative holding area where surgical site was marked. She was brought back to the main operating room where she was carefully rolled in the lateral decubitus position and a spinal anesthetic was placed. She was then carefully moved on to the fracture table. She was then positioned appropriately with the nonoperative leg flexed and abducted. We then brought in fluoroscopy and we were able to reduce the fracture through a combination of traction and internal rotation. The fracture reduction was confirmed on the AP and lateral fluoroscopic views. We then prepped and draped the patient in the usual sterile fashion. Perioperative antibiotics were administered. Prior to incision, a multidisciplinary timeout was called. All in the room were in agreement. We began by making a 10 cm long incision on the lateral aspect of the hip, starting 2 cm above the vastus ridge and extending distally. We dissected down through subcutaneous tissues to the level of the fascia. Fascia was incised in line with the incision. Hematoma was encountered within the vastus lateralis, which was evacuated. An L-shaped cut was made through the vastus lateralis starting just distal to the vastus ridge and then turning a 90-degree corner and extending distally along the posterior border of the vastus. The vastus lateralis was then lifted anteriorly and the lateral cortex of the femur was exposed subperiosteally. At this point, the 135-degree angled guide was placed on the lateral aspect of the distal femur. We optimized the starting point on both the AP and lateral fluoroscopic views and then drilled our guidewire up into the femoral head. This was in the center-center position. Once this was complete, we then placed a guidewire for 6.5 mm cannulated screw cephalad to this in the superior femoral neck. This was then measured and we placed a 90 mm screw. Excellent fixation was obtained. At this point, we measured for our DHS screw and then drilled up into the femoral head. We tapped the hole and then placed a 95 mm screw. We then placed the 2-hole DHS sideplate over the top of the screw and slid this down on to the bone. We had to slightly adjust the screw to get the plate to sit appropriately on the lateral cortex of the femur. Once this was optimized, we placed two 4.5 mm cortical screws through the plate. Excellent fixation was obtained. At this point, our final fluoroscopic images were obtained. There was no need for a compression screw. We irrigated out the wound and then began to close. The vastus lateralis was repaired with 0 Vicryl sutures. The fascia was run with 0 Vicryl sutures. Interrupted 0 Vicryl sutures were used for the subcutaneous layer. 2-0 Vicryl sutures were used in the deep dermal layer. Norton were used for the skin. Sterile dressings were applied. The patient was then moved on to the hospital bed and transferred to the recovery room in stable condition. POSTOPERATIVE COURSE: Patient will be readmitted to the Internal Medicine service. She will be on Lovenox for DVT prophylaxis. Weightbearing as tolerated on the left lower extremity. Job ID: [id number] [facility]
[2021-08-30] MEDS ORDERED: PROCHLORPERAZINE MALEATE 5 MG TAB PO ONE (18:15)
[2021-08-30] MEDS ORDERED: LACTATED RINGER'S 1,000 ML IV SCH (19:00)
[2021-08-30] MEDS ORDERED: PROMETHAZINE HCL 12.5 MG/10 ML UDP PO PRN (19:15)
--- NOTE | 2021-08-30 22:01 | Electrocardiogram Report ---
Test Reason : Blood Pressure : / mmHG Vent. Rate : 093 BPM Atrial Rate : 093 BPM P-R Int : 132 ms QRS Dur : 080 ms QT Int : 372 ms P-R-T Axes : 084 054 065 degrees QTc Int : 462 ms Poor data quality, interpretation may be adversely affected Normal sinus rhythm Possible Left atrial enlargement Nonspecific ST and T wave abnormality Abnormal ECG No previous ECGs available Confirmed by Josue Quarles ([id number]) on 08/30/2021 10:01:28 PM Referred By: REFERRED SELF Confirmed By:Josue Quarles
--- NOTE | 2021-08-30 22:16 | Billing Data ---
Date of Service August 30, 2021 Coding Level of Care Code 82871 Initial Inpt Care Lvl 2
[2021-08-31 06:28] LABS: Hematocrit (blood only) 31.2 % (37-47); Immature Granulocytes # (auto) 0.03 K/uL (0.00-0.02); Immature Granulocytes % (auto) 0.2 %; Lymphocytes # (auto) 1.58 K/uL (1.2-3.4); Lymphocytes % (auto) 12.2 %; Mean Corpuscular Hemoglobin 30.5 pg (25-34); Mean Corpuscular Hgb Conc 32.1 g/dL (32-36); Mean Corpuscular Volume 95.1 fL (80-100); Mean Platelet Volume 10.1 fL (7.4-10.4); Monocytes % (auto) 16.3 %; Neutrophils # (auto) 9.19 K/uL (1.4-6.5); Neutrophils % (auto) 71.3 %; Platelet Count 302 K/uL (130-400); RDW Coefficient of Variation 15.1 % (11.5-14.5); RDW Standard Deviation 52.5 fL (36.4-46.3); Red Blood Count 3.28 M/uL (4.2-5.4)
[2021-08-31 07:05] LABS: BUN Creatinine Ratio 17.9 (10-20); Creatinine Clr Calc Pharmacy 44.5 ml/min; Est GFR (African American) 77.8 ml/min; Est GFR (Non-African American) 67.2 ml/min; Potassium 3.6 mmol/L (3.5-5.1)
--- NOTE | 2021-08-31 08:10 | Hospitalist Progress Note ---
Date of Service August 31, 2021 Assessment & Plan (1) Closed intertrochanteric fracture of left hip: Plan: Previously healthy 81 yo F admitted for management of femur fracture. L Intertrochanteric Femur Fracture - Orthopedics consult: - Surgery is recommended to regain the ability to ambulate. - Discussed that this is potentially an unstable fracture. - There is a risk for avascular necrosis with this particular fracture. - However if we can get it to heal I think that is the most optimal outcome as opposed to an arthroplasty. - ASA 81mg daily per ortho - Has Morphine IV prn for pain - Remove Pierson today - PT/OT recommending inpatient rehab after DC HTN - managed without medications? patient states she only has a problem in the hospital, but was on medications in assisted - goal BP <220/120 - Post-surgery pt had BP to >200 systolic -- given hydralazine 10mg x1, with reduction to 160s Frequent Falls - appears to be mechanical fall due to sidewalk misalignment, per pt report - no electrolyte abnormalities - TTE showing normal LV function EF 65 to 70%, no wall motion abnormalities, no LVH, sclerotic aortic valve without significant stenosis, mild to moderate aor tic regurg - EKG with significant movement artifact but seems to be NSR, not afib - PT/OT DVT ppx: Lovenox SQ q24h FEN/GI: Heart healthy Code Status: DNR/DNI Dispo: Med/Surg (2) Frequent falls: (3) Hypertension: Admission and Anticipated Discharge Date Admission Date: August 30, 2021 Supervising Physician Co-Signing Physician Notes Patient seen and examined, chart reviewed, case discussed with Dr. Adalberto Currie and I agree with the assessment and plan as above except as otherwise noted above. General: A&Ox3. NAD. Cooperative. HEENT: Atraumatic, normocephalic. Pulm: Symmetrical chest rise. No increase work of breathing. No respiratory d istress. Cardiac: Radial pulses intact and symmetrical. Abdominal: Nontender, nondistended, soft. BS present. : Pierson in place draining clear yellow tinged urine. Ext: L hip with postsurgical dressing intact, C/D/I. PT pulses intact bilaterally. Sensation to soft touch in feet intact bilaterally. Ankle plantarflexion/dorsiflexion intact bilaterally. All labs and images reviewed S/p ORIF w/ sliding hip screw and derotation screw 08/30/2021. Doign well. Lovenox DVT PPx + SCDs. WBAT + Walker. Needs rehab per PT/OT. 2 week followup with [facility]. Remove Pierson today. Subjective No acute events overnight. Patient reports that her pain has been well controlled so far. She is aware that she may require rehabilitation once she is able to work with PT/OT. Denies fever, chills, nausea, vomiting, shortness of breath, chest pain, palpitations, headache, dizziness. Review of Systems Review of Systems: per subjective Physical Exam Physical Exam: GENERAL: A&Ox3. NAD. CHEST/LUNGS: CTAB A/P. No crackles, wheezes, rales, rhonchi. HEART: RRR. No m/g/r. ABDOMEN: NT/ND, soft. BS+ x4 EXTREMITIES: No edema, radial and pedal pulses intact. Left leg slightly park manager ally rotated. Pain with movement. SKIN: Warm and dry. No rashes or lesions. PSYCHIATRIC: Euthymic affect, no SI, no pressured speech, no hallucinations Results & Data Results & Data ([facility]) Vital Signs (Past 12 Hours) Vital Signs Temp Pulse Resp BP Pulse Ox 08/31/21 07:10 36.8 C 93 H 16 173/82 H 95 08/31/21 05:00 36.8 C 100 H 17 165/88 H 94 08/30/21 22:56 36.5 C 104 H 16 173/88 H 94 Resident Activity Tracking Resident Involvement: Resident Care Provided Care Provided: Adult Hospital Medicine (1) Closed intertrochanteric fracture of left hip Encounter type: initial encounter Fracture alignment: nondisplaced Qualified Code(s): S72.145A - Nondisplaced intertrochanteric fracture of left femur, initial encounter for closed fracture
[2021-08-31] MEDS: ASPIRIN 81 MG ECTAB PO SCH (08:33)
[2021-08-31] MEDS: MoRPHine SULFATE 2 MG/ML CARP IV PRN (08:35)
--- NOTE | 2021-08-31 09:38 | Orthopedic Progress Note ---
Date of Service August 31, 2021 Assessment & Plan (1) Closed left hip fracture: Plan: PT/OT Weightbearing as tolerated with walker assistance. Lovenox for DVT prophylaxis, along with CHIQUITA stockings and SCDs Ice with easy wrap Keep dressing in place Pain control with p.o. medication Patient will most likely need rehabilitation at a rehab or group home facility at this point. Discharge will be managed by medicine service. Patient will need to have a 2-week follow-up scheduled at our clinic ([facility]). If she has questions or concerns in regards to her hip, she should contact us at [phone]. Admission and Anticipated Discharge Date Admission Date: August 30, 2021 Subjective This 81-year-old female is day 1 status post Open Reduction Internal Fixation Left Intertrochanteric Femur Fracture. Patient states she is doing very well. She states that she was just given a dose of morphine for some pain she was expe riencing. She states that it must be working because she no longer has any pain at this point. She also denies any chest pain, shortness of breath, fever, chills, sweats, lethargy, numbness or tingling in her left lower extremity but states that she does have difficulty lifting the leg and is yet to get up on her walker with physical therapy. Review of Systems Review of Systems: All systems reviewed & are unremarkable except as noted in Subjective Physical Exam Physical Exam: Left hip; dressings are clean dry intact and kept in place. Patient is unable to perform an active straight leg raise test but has no pain with a passive straight leg raise test. She is able to actively dorsi and plantarflex her foot. Knee range of motion is limited to 60 degrees of flexion. Quad strength is 2 out of 5. She has no pain with a logroll test, but does experience referred pain to the hip region with very light passive internal and external hip rotation. Peripheral pulses are 2+. Capillary refill is less than 2 seconds. Patient is neurovascularly intact in left lower extremity. Results & Data ([facility] [place]) Vital Signs (Past 12 Hours) Vital Signs Temp Pulse Resp BP Pulse Ox 08/31/21 07:10 36.8 C 93 H 16 173/82 H 95 08/31/21 05:00 36.8 C 100 H 17 165/88 H 94 08/30/21 22:56 36.5 C 104 H 16 173/88 H 94 Diagnostic Findings Laboratory Results WBC 12.90 K/uL (4.8-10.8) H 08/31/21 05:58 RBC 3.28 M/uL (4.2-5.4) L 08/31/21 05:58 Hgb 10.0 g/dL (12.0-16.0) L 08/31/21 05:58 Hct 31.2 % (37-47) L 08/31/21 05:58 MCV 95.1 fL (80-100) 08/31/21 05:58 MCH 30.5 pg (25-34) 08/31/21 05:58 MCHC 32.1 g/dL (32-36) 08/31/21 05:58 RDW Std Deviation 52.5 fL (36.4-46.3) H 08/31/21 05:58 RDW Coeff of James 15.1 % (11.5-14.5) H 08/31/21 05:58 Plt Count 302 K/uL (130-400) 08/31/21 05:58 MPV 10.1 fL (7.4-10.4) 08/31/21 05:58 Immature Gran % (Auto) 0.2 % 08/31/21 05:58 Neut % (Auto) 71.3 % 08/31/21 05:58 Lymph % (Auto) 12.2 % 08/31/21 05:58 Barrow % (Auto) 16.3 % 08/31/21 05:58 Eos % (Auto) 0.0 % 08/31/21 05:58 Baso % (Auto) 0.0 % 08/31/21 05:58 Neut # (Auto) 9.19 K/uL (1.4-6.5) H 08/31/21 05:58 Lymph # (Auto) 1.58 K/uL (1.2-3.4) 08/31/21 05:58 Barrow # (Auto) 2.10 K/uL (0.11-0.59) H 08/31/21 05:58 Eos # (Auto) 0.00 K/uL (0-0.5) 08/31/21 05:58 Baso # (Auto) 0.00 K/uL (0-0.2) 08/31/21 05:58 Immature Gran # (Auto) 0.03 K/uL (0.00-0.02) H 08/31/21 05:58 PT 10.3 Seconds (9.0-12.0) 08/29/21 22:05 INR 1.0 (0.9-1.1) 08/29/21 22:05 APTT 24.0 Seconds (21.0-31.0) 08/29/21 22:05 PTT Ratio 0.9 08/29/21 22:05 Sodium 142 mmol/L (136-145) 08/31/21 05:58 Potassium 3.6 mmol/L (3.5-5.1) 08/31/21 05:58 Chloride 111 mmol/L (98-107) H 08/31/21 05:58 Carbon Dioxide 23 mmol/L (21-32) 08/31/21 05:58 Anion Gap 8.0 (3-11) 08/31/21 05:58 BUN 15 mg/dl (7-18) 08/31/21 05:58 Creatinine 0.81 mg/dl (0.6-1.2) 08/31/21 05:58 Est Cr Clr Drug Dosing 44.5 ml/min 08/31/21 05:58 Est GFR ( Amer) 77.8 ml/min 08/31/21 05:58 Est GFR (Non-Af Amer) 67.2 ml/min 08/31/21 05:58 BUN/Creatinine Ratio 17.9 (10-20) 08/31/21 05:58 Glucose 107 mg/dl (70-99) H 08/31/21 05:58 Calcium 9.0 mg/dl (8.5-10.1) 08/31/21 05:58 Total Bilirubin 0.4 mg/dl (0.2-1) 08/29/21 22:05 AST 14 U/L (15-37) L 08/29/21 22:05 ALT 18 (12-78) 08/29/21 22:05 Alkaline Phosphatase 72 U/L (45-117) D 08/29/21 22:05 Total Protein 7.4 gm/dl (6.4-8.2) 08/29/21 22:05 Albumin 3.7 gm/dl (3.4-5.0) 08/29/21 22:05 Globulin 3.7 gm/dl (2.5-4.0) 08/29/21 22:05 Albumin/Globulin Ratio 1.0 (0.9-2) 08/29/21 22:05 25-OH Vitamin D Total 10.4 ng/ml (30-100) L 08/31/21 05:58 Urine Color Yellow 08/29/21 23:10 Urine Appearance Clear (Clear) 08/29/21 23:10 Urine pH 6.0 (4.5-7.5) 08/29/21 23:10 Ur Specific Vanderwagen 1.016 (1.000-1.030) 08/29/21 23:10 Urine Protein Trace (Negative) H 08/29/21 23:10 Urine Glucose (UA) Negative (Negative) 08/29/21 23:10 Urine Ketones 1+ (Negative) H 08/29/21 23:10 Urine Blood 2+ (Negative) H 08/29/21 23:10 Urine Nitrite Negative (Negative) 08/29/21 23:10 Urine Bilirubin Negative (Negative) 08/29/21 23:10 Urine Urobilinogen Negative (Negative) 08/29/21 23:10 Ur Leukocyte Esterase Negative (Negative) 08/29/21 23:10 Urine WBC (Auto) 0 /hpf (0-5) 08/29/21 23:10 Urine RBC (Auto) 10-30 /hpf (0-4) H 08/29/21 23:10 U Hyaline Cast (Auto) 1-5 /lpf (0-5) 08/29/21 23:10 U Epithel Cells (Auto) 0-5 /lpf (0-5) 08/29/21 23:10 Urine Bacteria (Auto) Negative (Negative) 08/29/21 23:10 SARS-CoV-2, RNA, NAAT NEGATIVE (NEGATIVE) 08/29/21 22:18 Impressions Femur X-Ray 08/29/21 20:19 LEFT FEMUR 2 VIEWS CLINICAL HISTORY: Fall with left hip injury. FINDINGS: AP and crosstable lateral views of the left femur are obtained. No prior studies are available for comparison at the time of dictation. The skeletal structures are osteopenic. There is a mildly angulated intertrochanteric fracture of the left femur. Overlying soft tissue edema is noted. The distal femur appears intact. The visualized bony pelvis is maintained. A right hip arthroplasty is partially visualized. Moderate degenerative joint space narrowing is noted in the left hip. The left knee joint is grossly maintained. IMPRESSION: Intertrochanteric left femoral fracture as above. Electronically signed by: Gordon Martinez M.D. 08/29/2021 9:50 PM Chest X-Ray 08/29/21 21:52 XR chest 1V portable HISTORY: Left hip fracture. Preop. Fall. COMPARISON: None. FINDINGS: The lungs are hyperexpanded. No focal lung consolidations to suggest pneumonia. No evidence for pulmonary edema. The heart is mildly enlarged. No pleural effusions. No pneumothorax. No acute fractures identified. IMPRESSION: Mild cardiomegaly. Otherwise, no acute process within the chest. ACT 112: Negative or not required by law. Electronically signed by: Denis Perez M.D. 08/30/2021 7:28 AM Hip X-Ray 08/30/21 13:30 INTRAOPERATIVE RADIOGRAPHS CLINICAL HISTORY: Open reduction and internal fixation of the left proximal femur. Fluoroscopy time: 83 seconds. FINDINGS: 2 spot fluoroscopic views of the left proximal femur are correlated with radiographs dated 08/29/2021. A dynamic compression screw and a cortical lag screw have been placed in the intertrochanteric left femur transfixing an inter trochanteric fracture. 2 cortical lag screws transfix the buttress plate of the compression screw. Overlying soft tissue edema is noted. IMPRESSION: Intraoperative radiographs from open reduction and internal fixation of the left proximal femur. Electronically signed by: Gordon Martinez M.D. 08/30/2021 3:30 PM
[2021-08-31] MEDS ORDERED: IBUPROFEN 200 MG TAB PO PRN (15:54)
[2021-08-31] MEDS ORDERED: hydrALAZINE HCL 20 MG/ML VIAL IV PRN (15:59)
[2021-08-31] MEDS: ENOXAPARIN INJ 40 MG/0.4 ML SYR SQ SCH (16:59)
--- NOTE | 2021-08-31 17:46 | Billing Data ---
Date of Service August 31, 2021 Coding Level of Care Code 88299 Subseq Hosp Care Lvl 2
[2021-09-01] MEDS ORDERED: SODIUM CHLORIDE 0.9% 1000ML 1,000 ML IV SCH (01:30)
[2021-09-01] MEDS: oxyCODONE HCL IR 5 MG TAB (IMMEDIATE RELEASE) PO PRN ×2 (03:34→21:04)
[2021-09-01 06:51] LABS: Basophils # (auto) 0.01 K/uL (0-0.2); Basophils % (auto) 0.1 %; Eosinophils # (auto) 0.01 K/uL (0-0.5); Eosinophils % (auto) 0.1 %; Hematocrit (blood only) 26.3 % (37-47); Hemoglobin 8.4 g/dL (12.0-16.0); Immature Granulocytes # (auto) 0.01 K/uL (0.00-0.02); Immature Granulocytes % (auto) 0.1 %; Lymphocytes # (auto) 1.56 K/uL (1.2-3.4); Lymphocytes % (auto) 13.7 %; Mean Corpuscular Hemoglobin 30.1 pg (25-34); Mean Corpuscular Hgb Conc 31.9 g/dL (32-36); Mean Corpuscular Volume 94.3 fL (80-100); Mean Platelet Volume 9.8 fL (7.4-10.4); Monocytes # (auto) 1.78 K/uL (0.11-0.59); Monocytes % (auto) 15.7 %; Neutrophils # (auto) 7.99 K/uL (1.4-6.5); Neutrophils % (auto) 70.3 %; Platelet Count 247 K/uL (130-400); RDW Coefficient of Variation 14.9 % (11.5-14.5); RDW Standard Deviation 50.8 fL (36.4-46.3); Red Blood Count 2.79 M/uL (4.2-5.4); White Blood Count 11.36 K/uL (4.8-10.8)
[2021-09-01 07:07] LABS: BUN Creatinine Ratio 24.5 (10-20); Calcium 8.2 mg/dl (8.5-10.1); Est GFR (African American) 85.4 ml/min; Est GFR (Non-African American) 73.7 ml/min; Potassium 3.6 mmol/L (3.5-5.1)
--- NOTE | 2021-09-01 07:18 | Hospitalist Progress Note ---
Date of Service September 01, 2021 Assessment & Plan (1) Closed intertrochanteric fracture of left hip: Plan: Previously healthy 81 yo F admitted for management of femur fracture. L Intertrochanteric Femur Fracture - s/p ORIF on 08/30 - Orthopedics consult: - Surgery is recommended to regain the ability to ambulate. - Discussed that this is potentially an unstable fracture. - There is a risk for avascular necrosis with this particular fracture. - However if we can get it to heal I think that is the most optimal outcome as opposed to an arthroplasty. - ASA 81mg daily per ortho - Has Morphine IV prn for pain - Remove Pierson today - PT/OT recommending inpatient rehab after DC Post-operative Anemia - hemodynamically stable w/o signs of active bleed - Hgb 13.6 on arrival -- has downtrended to 8.4 s/p hip surgery - Recheck stable at 8.7 - Likely post-op losses plus component of hemodilution - Continue to monitor CBC daily - Transfuse for Hgb < 7 HTN - managed without medications? patient states she only has a problem in the hospital, but was on medications in longterm - goal BP <220/120 - Post-surgery pt had BP to >200 systolic -- given hydralazine 10mg x1, with reduction to 160s Frequent Falls - appears to be mechanical fall due to sidewalk misalignment, per pt report - no electrolyte abnormalities - TTE showing normal LV function EF 65 to 70%, no wall motion abnormalities, no LVH, sclerotic aortic valve without significant stenosis, mild to moderate aortic regurg - EKG with significant movement artifact but seems to be NSR, not afib - PT/OT as above DVT ppx: Lovenox SQ q24h FEN/GI: Heart healthy Code Status: DNR/DNI Dispo: Med/Surg (2) Frequent falls: (3) Hypertension: Admission and Anticipated Discharge Date Admission Date: August 30, 2021 Supervising Physician Co-Signing Physician Notes Patient seen and examined, chart reviewed, case discussed with Dr. Adalberto Currie and I agree with the assessment and plan as above except as otherwise noted above. General: A&Ox3. NAD. Cooperative. HEENT: Atraumatic, normocephalic. Pulm: Symmetrical chest rise. No increase work of breathing. No respiratory distress. Cardiac: Radial pulses intact and symmetrical. Abdominal: Nontender, nondistended, soft. BS present. : Pierson in place draining clear yellow tinged urine. Ext: L hip with postsurgical dressing intact, C/D/I. Dressing removed, underlying postsurgical incision well-healing, lelo in place, without bleeding/discharge/purulence/dehiscence/hematoma. Skin exam performed of both legs, back, and buttocks without signs of hematoma/contusion/bleeding. Pulses intact bilaterally. All labs and images reviewed S/p ORIF w/ sliding hip screw and derotation screw 08/30/2021. Patient with hemoglobin drop 09/01, no clinical signs of bleeding on exam and postop site appears to be well-healing. Continue oral hydration, 1 bag of NSS 80 cc running for supplementation. No signs of hematoma/contusion on exam. Doing well, and patient reports she feels well and is engaging well with PT and has not had lightheadedness/dizziness while working with them. Lovenox DVT PPx + SCDs. WBAT + Walker. Pierson removed. Continue PT/OT, pending rehab. Trend daily. Review of Systems Review of Systems: per subjective Physical Exam Physical Exam: GENERAL: A&Ox3. NAD. CHEST/LUNGS: CTAB A/P. No crackles, wheezes, rales, rhonchi. HEART: RRR. No m/g/r. ABDOMEN: NT/ND, soft. BS+ x4 EXTREMITIES: No edema, radial and pedal pulses intact. Left leg slightly externally rotated. Pain with movement. SKIN: Warm and dry. No rashes or lesions. PSYCHIATRIC: Euthymic affect, no SI, no pressured speech, no hallucinations Results & Data Results & Data ([facility]) Vital Signs (Past 12 Hours) Vital Signs Temp Pulse Resp BP Pulse Ox 08/31/21 22:12 36.8 C 93 H 18 174/79 H 96 Resident Activity Tracking Resident Involvement: Resident Care Provided Care Provided: Adult [facility] Medicine (1) Closed intertrochanteric fracture of left hip Encounter type: initial encounter Fracture alignment: nondisplaced Qualified Code(s): S72.145A - Nondisplaced intertrochanteric fracture of left femur, initial encounter for closed fracture
[2021-09-01] MEDS: ASPIRIN 81 MG ECTAB PO SCH (08:49)
--- NOTE | 2021-09-01 11:46 | Billing Data ---
Date of Service September 01, 2021 Coding Level of Care Code 62715 Subseq Hosp Care Lvl 2
[2021-09-01 12:09] LABS: Hematocrit (blood only) 27.1 % (37-47); Hemoglobin 8.7 g/dL (12.0-16.0)
[2021-09-01] MEDS: ENOXAPARIN INJ 40 MG/0.4 ML SYR SQ SCH (15:37)
--- NOTE | 2021-09-02 06:58 | Hospitalist Progress Note ---
Date of Service September 02, 2021 Assessment & Plan (1) Closed intertrochanteric fracture of left hip: Plan: Previously healthy 81 yo F admitted for management of femur fracture. L Intertrochanteric Femur Fracture - s/p ORIF on 08/30 - Orthopedics consult: - Surgery is recommended to regain the ability to ambulate. - Discussed that this is potentially an unstable fracture. - There is a risk for avascular necrosis with this particular fracture. - However if we can get it to heal I think that is the most optimal outcome as opposed to an arthroplasty. - ASA 81mg daily per ortho - Has Morphine IV prn for pain - PT/OT recommending inpatient rehab after DC - CM working on placement -- expecting information this coming week Post-operative Anemia - hemodynamically stable w/o signs of active bleed - Hgb 13.6 on arrival -- has downtrended to 8.4 s/p hip surgery - Recheck stable at 8.7 and 9.3 subsequently - Likely post-op losses plus component of hemodilution - Continue to monitor CBC daily - Transfuse for Hgb < 7 HTN - managed without medications? patient states she only has a problem in the hospital, but was on medications in senior living - goal BP <220/120 - Post-surgery pt had BP to >200 systolic -- given hydralazine 10mg x1, with reduction to 160s Frequent Falls - appears to be mechanical fall due to sidewalk misalignment, per pt report - no electrolyte abnormalities - TTE showing normal LV function EF 65 to 70%, no wall motion abnormalities, no LVH, sclerotic aortic valve without significant stenosis, mild to moderate aortic regurg - EKG with significant movement artifact but seems to be NSR, not afib - PT/OT as above DVT ppx: Lovenox SQ q24h FEN/GI: Heart healthy Code Status: DNR/DNI Dispo: Med/Surg (2) Frequent falls: (3) Hypertension: Admission and Anticipated Discharge Date Admission Date: August 30, 2021 Supervising Physician Co-Signing Physician Notes Patient seen and examined, chart reviewed, case discussed with Dr. Adalberto Currie and I agree with the assessment and plan as above except as otherwise noted above. Patient has no new complaints today. General: A&Ox3. NAD. Cooperative. HEENT: Atraumatic, normocephalic. Pulm: Symmetrical chest rise. No increase work of breathing. No respiratory distress. Cardiac: Radial pulses intact and symmetrical. Abdominal: Nontender, nondistended, soft. BS present. Ext: L hip with postsurgical dressing intact, C/D/I. Dressing removed, underlying postsurgical incision well-healing, lelo in place, without bleeding/discharge/purulence/dehiscence/hematoma. Skin exam performed of both legs, back, and buttocks without signs of hematoma/contusion/bleeding. Pulses intact bilaterally. All labs and images reviewed S/p ORIF w/ sliding hip screw and derotation screw 08/30/2021. Patient with hem oglobin drop 09/01, no clinical signs of bleeding on exam and postop site appears to be well-healing. Continue oral hydration. No signs of hematoma/contusion on exam. Doing well, and patient reports she feels well and is engaging well with PT and has not had lightheadedness/dizziness while working with them. Lovenox DVT PPx + SCDs. WBAT + Walker. Pierson removed. Continue PT/OT, pending rehab. Trend daily. Subjective No acute events overnight. Pain well-controlled. No n/v, f/c, CP, palp, SOB, cough, abd pain. Review of Systems Review of Systems: per subjective Physical Exam Physical Exam: GENERAL: A&Ox3. NAD. CHEST/LUNGS: CTAB A/P. No crackles, wheezes, rales, rhonchi. HEART: RRR. No m/g/r. EXTREMITIES: No edema, radial and pedal pulses intact. Left hip with dressings that are c/d/i. No bruising on extremities. SKIN: Warm and dry. No rashes or lesions. PSYCHIATRIC: Euthymic affect, no SI, no pressured speech, no hallucinations Results & Data Results & Data ([facility]) Vital Signs (Past 12 Hours) Vital Signs Temp Pulse Resp BP Pulse Ox 09/01/21 21:59 36.9 C 88 18 133/72 96 Resident Activity Tracking Resident Involvement: Resident Care Provided Care Provided: [facility] Medicine (1) Closed intertrochanteric fracture of left hip Encounter type: initial encounter Fracture alignment: nondisplaced Qualified Code(s): S72.145A - Nondisplaced intertrochanteric fracture of left femur, initial encounter for closed fracture
[2021-09-02] MEDS: ASPIRIN 81 MG ECTAB PO SCH (09:04)
[2021-09-02 10:00] LABS: Hematocrit (blood only) 28.9 % (37-47); Hemoglobin 9.3 g/dL (12.0-16.0)
[2021-09-02] MEDS: ENOXAPARIN INJ 40 MG/0.4 ML SYR SQ SCH (15:24)
--- NOTE | 2021-09-02 17:58 | Billing Data ---
Date of Service September 02, 2021 Coding Level of Care Code 71941 Subseq Hosp Care Lvl 2
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
[2021-09-03] MEDS: ASPIRIN 81 MG ECTAB PO SCH (09:48)
[2021-09-03] MEDS ORDERED: HALOPERIDOL LACTATE 5 MG/ML 1 ML VIAL IM STA ×3 (14:38→16:02)
[2021-09-03] MEDS ORDERED: LORazepam 0.5 MG/1 ML VIAL IV STA (14:58)
[2021-09-03] MEDS ORDERED: LORazepam 1 MG/2 ML VIAL IV STA (16:02)
[2021-09-03] MEDS: ENOXAPARIN INJ 40 MG/0.4 ML SYR SQ SCH (17:34)
[2021-09-03] MEDS ORDERED: oxyCODONE HCL IR 5 MG TAB (IMMEDIATE RELEASE) PO PRN (21:22)
[2021-09-04] MEDS: oxyCODONE HCL IR 5 MG TAB (IMMEDIATE RELEASE) PO PRN ×2 (05:56→22:28)
--- NOTE | 2021-09-04 06:49 | Hospitalist Progress Note ---
Date of Service September 04, 2021 Assessment & Plan (1) Closed intertrochanteric fracture of left hip: Plan: Previously healthy 81 yo F admitted for management of left intertrochanteric femur fracture. L Intertrochanteric Femur Fracture -s/p ORIF on 08/30 - Doing well post op - ASA 81mg daily per ortho. - pain well controlled on oxycodone prn Post-operative Anemia -hemodynamically stable w/o signs of active bleed - Hgb 13.6 on arrival -- has downtrended since hip surgery - stable h/h HTN -managed without medications? patient states she only has a problem in the hospital, but [facility] medications [facility] - goal BP <220/120 - Post-surgery pt had BP to >200 systolic -- given hydralazine 10mg x1, with reduction to 160s Frequent Falls - appears to be mechanical fall due to sidewalk misalignment, per. pt. report - no electrolyte abnormalities - TTE showing normal LV function EF 65 to 70%, no wall motion abnormalities, no LVH, sclerotic aortic valve without significant stenosis, mild to moderate aortic regurg. - EKG with significant movement artifact but seems to be NSR, not afib - PT/OT as above Agitation likely due to delirium, risk factors include age, recent procedure, and change in location - improved over the day DVT ppx: Lovenox SQ q24h FEN/GI: Heart healthy Code Status: DNR/DNI Dispo: Med/Surg - insurance denied acute rehab but approved sub acute rehab CM working on placement Admission and Anticipated Discharge Date Admission Date: August 30, 2021 Supervising Physician Co-Signing Physician Notes Resident Physician Supervision Note: I independently interviewed and examined the patient and verified the ledesma history and physical, reviewed labs and image studies and agree with resident Dr. Fofana findings and care plan. Subjective Fatimah Jacobo is doing well today. She was pain free and did not have any questions for me. Review of Systems Review of Systems: Constitutional: denies fevers admits chills Cardiac: denies chest pain, palpitations, presyncope GI: denies nausea, vomiting, constipation, diarrhea Pulm.: denies cough, shortness of breath : denies urgency, frequency and dysuria Physical Exam Constitutional: well developed and well nourished Eyes: PERRL, conjunctivae normal, anicteric sclerae ENMT: external ear and nose normal, oropharynx normal Neck: normal visual inspection Respiratory: normal respiratory effort, lungs clear to auscultation Cardiovascular: RRR, no murmur, no edema Gastrointestinal (Abdomen): normal bowel sounds, soft, nontender, no hepatosplenomegaly Musculoskeletal: Extremities: extremities normal to inspection Skin: - bandage over left hip c/d/i Neurologic: no focal motor deficits Results & Data CBC Results Results Complete Blood Count Results: RBC 3.04 M/uL (4.2-5.4) L 09/04/21 WBC 8.86 K/uL (4.8-10.8) 09/04/21 Hgb 9.3 g/dL (12.0-16.0) L 09/04/21 Hct 28.5 % (37-47) L 09/04/21 Plt Count 387 K/uL (130-400) 09/04/21 Resident Activity Tracking Resident Involvement: Resident Care Provided Care Provided: Adult Hospital Medicine (1) Closed intertrochanteric fracture of left hip Encounter type: initial encounter Fracture alignment: nondisplaced Qualified Code(s): S72.145A - Nondisplaced intertrochanteric fracture of left femur, initial encounter for closed fracture
[2021-09-04] MEDS: ASPIRIN 81 MG ECTAB PO SCH (08:24)
[2021-09-04 08:57] LABS: Basophils # (auto) 0.04 K/uL (0-0.2); Basophils % (auto) 0.5 %; Eosinophils # (auto) 0.13 K/uL (0-0.5); Eosinophils % (auto) 1.5 %; Hematocrit (blood only) 28.5 % (37-47); Hemoglobin 9.3 g/dL (12.0-16.0); Immature Granulocytes # (auto) 0.03 K/uL (0.00-0.02); Immature Granulocytes % (auto) 0.3 %; Lymphocytes # (auto) 1.36 K/uL (1.2-3.4); Lymphocytes % (auto) 15.3 %; Mean Corpuscular Hemoglobin 30.6 pg (25-34); Mean Corpuscular Hgb Conc 32.6 g/dL (32-36); Mean Corpuscular Volume 93.8 fL (80-100); Mean Platelet Volume 9.7 fL (7.4-10.4); Monocytes # (auto) 1.14 K/uL (0.11-0.59); Monocytes % (auto) 12.9 %; Neutrophils # (auto) 6.16 K/uL (1.4-6.5); Neutrophils % (auto) 69.5 %; Platelet Count 387 K/uL (130-400); RDW Coefficient of Variation 14.6 % (11.5-14.5); RDW Standard Deviation 49.8 fL (36.4-46.3); Red Blood Count 3.04 M/uL (4.2-5.4); White Blood Count 8.86 K/uL (4.8-10.8)
[2021-09-04 09:45] LABS: BUN Creatinine Ratio 23.4 (10-20); Calcium 8.4 mg/dl (8.5-10.1); Creatinine Clr Calc Pharmacy 56.3 ml/min; Est GFR (African American) 95.6 ml/min; Est GFR (Non-African American) 82.5 ml/min; Potassium 3.8 mmol/L (3.5-5.1)
--- NOTE | 2021-09-04 10:05 | Orthopedic Progress Note ---
Date of Service September 04, 2021 Assessment & Plan (1) Closed left hip fracture: Plan: PT/OT Weightbearing as tolerated with walker assistance. Lovenox for DVT prophylaxis, along with CHIQUITA stockings and SCDs Ice with easy wrap Keep dressing in place Pain control with p.o. medication Patient will most likely need rehabilitation at a rehab or residential facility at this point. Discharge will be managed by medicine service. Patient will need to have a 2-week follow-up scheduled at our clinic ([facility]). If she has questions or concerns in regards to her hip, she should contact us at [phone]. Admission and Anticipated Discharge Date Admission Date: August 30, 2021 Subjective This 81-year-old female is5 days status post ORIF of a left hip fracture. Patient is currently lying in bed. Physical therapist is present states that a just had the patient and that she requires max assistance to do her therapy. Currently the patient denies any pain. She denies fever, chills, sweats, lethargy, chest pain, shortness of breath or numbness or tingling in her left lower extremity. Review of Systems Review of Systems: All systems reviewed & are unremarkable except as noted in Subjective Physical Exam Physical Exam: Left hip; dressings are clean dry intact and kept in place. Patient is unable to perform an active straight leg raise test but has no pain with a passive straight leg raise test. She is able to actively dorsi and plantarflex her foot. Knee range of motion is limited to 60 degrees of flexion. Quad strength is 2 out of 5. She has no pain with a logroll test, but does experience referred pain to the hip region with very light passive internal and external hip rotation. Peripheral pulses are 2+. Capillary refill is less than 2 seconds. Patient is neurovascularly intact in left lower extremity. Results & Data ([facility]) Vital Signs (Past 12 Hours) Vital Signs Temp Pulse Resp BP Pulse Ox 09/04/21 08:22 36.4 C L 92 H 14 156/74 H 95 Laboratory Results 09/04/21 09/04/21 09/03/21 Range/Units 08:24 08:24 04:44 WBC 8.86 RBC 3.04 L Hgb 9.3 L Hct 28.5 L MCV 93.8 MCH 30.6 MCHC 32.6 RDW Std Deviation 49.8 H RDW Coeff of James 14.6 H Plt Count 387 MPV 9.7 Immature Gran % (Auto) 0.3 % Neut % (Auto) 69.5 % Lymph % (Auto) 15.3 % [place] % (Auto) 12.9 % Eos % (Auto) 1.5 % Baso % (Auto) 0.5 % Neut # (Auto) 6.16 (1.4-6.5) K/uL Lymph # (Auto) 1.36 (1.2-3.4) K/uL [place] # (Auto) 1.14 H (0.11-0.59) K/uL Eos # (Auto) 0.13 (0-0.5) K/uL Baso # (Auto) 0.04 (0-0.2) K/uL Immature Gran # (Auto) 0.03 H (0.00-0.02) K/uL Absolute Nucleated RBC Nucleated RBC % (auto) Platelet Estimate Sodium 140 Cancelled Potassium 3.8 Cancelled Chloride 108 H Cancelled Carbon Dioxide 25 Cancelled Anion Gap 7 Cancelled BUN 15 Cancelled Creatinine 0.64 Cancelled Est Cr Clr Drug Dosing 56.3 Cancelled Est GFR ( Amer) 95.6 Cancelled Est GFR (Non-Af Amer) 82.5 Cancelled BUN/Creatinine Ratio 23.4 H Cancelled Glucose 106 H Cancelled Calcium 8.4 L Cancelled 09/03/21 Range/Units 04:44 WBC Cancelled RBC Cancelled Hgb Cancelled Hct Cancelled MCV Cancelled MCH Cancelled MCHC Cancelled RDW Std Deviation Cancelled RDW Coeff of James Cancelled Plt Count Cancelled MPV Cancelled Immature Gran % (Auto) % Neut % (Auto) % Lymph % (Auto) % [place] % (Auto) % Eos % (Auto) % Baso % (Auto) % Neut # (Auto) (1.4-6.5) K/uL Lymph # (Auto) (1.2-3.4) K/uL [place] # (Auto) (0.11-0.59) K/uL Eos # (Auto) (0-0.5) K/uL Baso # (Auto) (0-0.2) K/uL Immature Gran # (Auto) (0.00-0.02) K/uL Absolute Nucleated RBC Cancelled Nucleated RBC % (auto) Cancelled Platelet Estimate Cancelled Sodium Potassium Chloride Carbon Dioxide Anion Gap BUN Creatinine Est Cr Clr Drug Dosing Est GFR ( Amer) Est GFR (Non-Af Amer) BUN/Creatinine Ratio Glucose Calcium
[2021-09-04] MEDS: ENOXAPARIN INJ 40 MG/0.4 ML SYR SQ SCH (17:12)
[2021-09-05] MEDS ORDERED: ROPIVACAINE 0.5% HCL/PF 150 MG, BUPIVACAINE 0.75% MPF 20 ML, EPINEPHrine 0.15 MG, Ketor... INFIL SCH (06:00)
[2021-09-05] MEDS: ASPIRIN 81 MG ECTAB PO SCH (08:56)
--- NOTE | 2021-09-05 12:43 | Hospitalist Progress Note ---
Date of Service September 05, 2021 Assessment & Plan (1) Closed intertrochanteric fracture of left hip: Plan: Previously healthy 81 yo F admitted for management of left intertrochanteric femur fracture. L Intertrochanteric Femur Fracture -s/p ORIF on 08/30 - Doing well post op - ASA 81mg daily per ortho. - pain well controlled on oxycodone prn Post-operative Anemia -hemodynamically stable w/o signs of active bleed - Hgb 13.6 on arrival -- has downtrended since hip surgery - stable h/h HTN -managed without medications? patient states she only has a problem in the hospital, but was on medications in alf - goal BP <220/120 - Post-surgery pt had BP to >200 systolic -- given hydralazine 10mg x1, with reduction to 160s Frequent Falls - appears to be mechanical fall due to sidewalk misalignment, per. pt. report - no electrolyte abnormalities - TTE showing normal LV function EF 65 to 70%, no wall motion abnormalities, no LVH, sclerotic aortic valve without significant stenosis, mild to moderate aortic regurg. - EKG with significant movement artifact but seems to be NSR, not afib - PT/OT as above Agitation, improved likely due to delirium, risk factors include age, recent procedure, and change in location DVT ppx: Lovenox SQ q24h FEN/GI: Heart healthy Code Status: DNR/DNI Dispo: Med/Surg - plan for discharge to subacute rehab 09/06 (2) Frequent falls: Admission and Anticipated Discharge Date Admission Date: August 30, 2021 Supervising Physician Co-Signing Physician Notes Resident Physician Supervision Note: I independently interviewed and examined the patient and verified the ledesma history and physical, reviewed labs and image studies and agree with resident Dr. Fofana findings and care plan. Subjective Fatimah Jacobo is doing well today. She was pain free and did not have any questions for me. No agitation. comfortable Review of Systems Review of Systems: Constitutional: denies fevers admits chills Cardiac: denies chest pain, palpitations, presyncope GI: denies nausea, vomiting, constipation, diarrhea Pulm.: denies cough, shortness of breath : denies urgency, frequency and dysuria Physical Exam Physical Exam: Constitutional well developed and well nourished Eyes PERRL, conjunctivae normal, anicteric sclerae ENMT external ear and nose normal, oropharynx normal Neck normal visual inspection Respiratory normal respiratory effort, lungs clear to auscultation Cardiovascular RRR, no murmur, no edema Gastrointestinal (Abdomen) normal bowel sounds, soft, nontender, no hepatosplenomegaly Musculoskeletal Extremities:extremities normal to inspection Skin - bandage over left hip c/d/i Neurologic no focal motor deficits Results & Data Results & Data ([facility]) Vital Signs (Past 12 Hours) Vital Signs Temp Pulse Resp BP Pulse Ox 09/05/21 07:15 36.4 C L 84 16 130/81 96 (1) Closed intertrochanteric fracture of left hip Encounter type: initial encounter Fracture alignment: nondisplaced Qualified Code(s): S72.145A - Nondisplaced intertrochanteric fracture of left femur, initial encounter for closed fracture
--- NOTE | 2021-09-05 14:49 | Orthopedic Progress Note ---
Date of Service September 05, 2021 Assessment & Plan (1) Closed left hip fracture: Plan: PT/OT Weightbearing as tolerated with walker assistance. Lovenox for DVT prophylaxis, along with CHIQUITA stockings and SCDs Ice with easy wrap New dressing applied today. Do not remove unless completely saturated or leaking. Pain control with p.o. medication Patient will most likely need rehabilitation at a rehab or retirement facility at this point. Discharge will be managed by medicine service. Patient has a f/u scheduled for next Fri09/12/21 at 8 AM.([facility]). If she has questions or concerns in regards to her hip, she should contact us at [phone]. Admission and Anticipated Discharge Date Admission Date: August 30, 2021 Subjective This 81 yo F is day 5 s/p ORIF of left hip fracture. She states that she is doing well today. She states that she did much better with PT today. She denies pain, CP, SOB, nausea, vomiting, fever, chills, sweats, lethargy or numbness/tingling in her left lower extremity. Review of Systems Review of Systems: All systems reviewed & are unremarkable except as noted in Subjective Physical Exam Physical Exam: Left hip; dressing was removed. [place] are inplace and wound is healing very well. New dressing consisting of sterile 4x4s and tegaderms were applied. Patient is able to perform an active straight leg raise test. She is able to actively dorsi and plantarflex her foot. Knee range of motion is from 0-90 degrees. Quad strength is 3 out of 5. She has no pain with a logroll test. Active external hip rotation causes no pain. Peripheral pulses are 2+. Capillary refill is less than 2 seconds. Patient is neurovascularly intact in left lower extremity. Results & Data ([facility]) Vital Signs (Past 12 Hours) Vital Signs Temp Pulse Resp BP Pulse Ox 09/05/21 14:14 36.4 C L 87 16 127/71 96 09/05/21 07:15 36.4 C L 84 16 130/81 96
[2021-09-05] MEDS: ENOXAPARIN INJ 40 MG/0.4 ML SYR SQ SCH (17:54)
[2021-09-06 07:34] LABS: Basophils # (auto) 0.05 K/uL (0-0.2); Basophils % (auto) 0.6 %; Eosinophils # (auto) 0.28 K/uL (0-0.5); Eosinophils % (auto) 3.5 %; Hematocrit (blood only) 28.3 % (37-47); Immature Granulocytes # (auto) 0.03 K/uL (0.00-0.02); Immature Granulocytes % (auto) 0.4 %; Lymphocytes # (auto) 2.09 K/uL (1.2-3.4); Lymphocytes % (auto) 26.4 %; Mean Corpuscular Hemoglobin 30.3 pg (25-34); Mean Corpuscular Hgb Conc 31.8 g/dL (32-36); Mean Corpuscular Volume 95.3 fL (80-100); Mean Platelet Volume 9.2 fL (7.4-10.4); Monocytes # (auto) 0.78 K/uL (0.11-0.59); Monocytes % (auto) 9.8 %; Neutrophils # (auto) 4.69 K/uL (1.4-6.5); Neutrophils % (auto) 59.3 %; Platelet Count 490 K/uL (130-400); RDW Coefficient of Variation 14.9 % (11.5-14.5); RDW Standard Deviation 50.8 fL (36.4-46.3); Red Blood Count 2.97 M/uL (4.2-5.4); White Blood Count 7.92 K/uL (4.8-10.8)
[2021-09-06] MEDS: ASPIRIN 81 MG ECTAB PO SCH (07:52)
[2021-09-06 08:04] LABS: Calcium 8.4 mg/dl (8.5-10.1); Est GFR (Non-African American) 68.2 ml/min
--- NOTE | 2021-09-06 10:10 | Orthopedic Progress Note ---
Date of Service September 06, 2021 Assessment & Plan (1) Closed intertrochanteric fracture of left hip: Plan: Patient was seen in her room. Continue with PT/OT. Weight-bear as tolerated using her walker. Anticipate transfer to [facility] today at 11 AM per case management note. Follow-up in the office as scheduled for staple removal. Continue use of the walker. Admission and Anticipated Discharge Date Admission Date: August 30, 2021 Subjective Patient is seen in her room this morning. She is currently working with physical therapy. She denies any pain. She states she feels well. She is happy with the progress she has made with PT. She is hoping to leave the hospital soon. Denies any chest pain, shortness of breath, nausea, vomiting, or dizziness. Review of Systems Review of Systems: Unchanged from yesterday. Physical Exam Physical Exam: General: Well-developed, well-nourished, elderly female, in no acute distress. Currently ambulating with her walker. Conversive. Skin: Warm and dry with fair turgor. No rashes. Healing wounds on the left leg. Musculoskeletal: Patient has supple motion of the left leg without significant discomfort. She is currently weightbearing and ambulating with her walker. Slow steady gait. Neurologic: Gross sensation is intact across the lower extremities by soft touch. Results & Data ([facility]) Vital Signs (Past 12 Hours) Vital Signs Temp Pulse Resp BP BP Pulse Ox 09/06/21 07:03 36.8 C 87 16 160/69 H 95 09/05/21 22:51 36.8 C 95 H 16 133/70 95 (1) Closed intertrochanteric fracture of left hip Encounter type: initial encounter Fracture alignment: nondisplaced Qualified Code(s): S72.145A - Nondisplaced intertrochanteric fracture of left femur, initial encounter for closed fracture
--- NOTE | 2021-09-06 20:35 | Discharge Summary ---
Date of Service September 06, 2021 Admission HPI Per Admitting Provider 81 yo F with hx partial R hip replacement admitted for L intertrochanteric femur fracture due to mechanical fall. She states she was walking on the sidewalk and fell backward on her left side. She denies any lightheadedness or dizzines leading up to the fall. Pain currently well controlled while laying in bed. was able to ambulate to bathroom with some assistance. Denies any numbness/tingling. Admission Exam Per Admitting Provider Constitutional: well appearing elderly female sitting in bed in NAD Eyes: EOMI, pupils equal and reactive bilaterally, no scleral icterus Cardiac: RRR, no murmurs, gallops or rubs. Normal S1, S2 Pulm: CTA BL, no wheezes, rhonchi, crackles or rubs, moving air well throughout both lungs Abd: soft, nontender, nondistended, normal bowel sounds, no rebound or guarding Extremities: 2+ peripheral pulses, no edema,externally rotated left leg Neuro: normal sensation, full ROM at L ankle Principal Diagnosis Left hip fracture Discharge Exam Constitutional well developed and well nourished Eyes PERRL, conjunctivae normal, anicteric sclerae ENMT external ear and nose normal, oropharynx normal Neck normal visual inspection Respiratory normal respiratory effort, lungs clear to auscultation Cardiovascular RRR, no murmur, no edema Gastrointestinal (Abdomen) normal bowel sounds, soft, nontender, no hepatosplenomegaly Musculoskeletal Extremities:extremities normal to inspection Skin - bandage over left hip c/d/i Neurologic no focal motor deficits Discharge Data Allergies Allergy/AdvReac Type Severity Reaction Status Date / Time acetaminophen [From Tylenol] AdvReac Gastrointestinal Verified 08/29/21 22:29 Upset Consultations 08/29/21 21:52 Consult Orthopedic Surgery Routine 08/29/21 21:54 ED Decision to Admit Stat Procedures Performed Operation Date: 08/30/21 11:30 Actual Procedures p Open Reduction Internal Fixation Left Intertrochanteric Femur Fracture(Left) - Oswaldo Cramer MD Ordered Studies 08/30/21 13:30 FL hip LT 2-3V Routine Hospital Course (1) Closed intertrochanteric fracture of left hip: Previously healthy 81 yo F admitted for management of left intertrochanteric femur fracture. L Intertrochanteric Femur Fracture -s/p ORIF on 08/30 - ASA 81mg daily per ortho. - pain well controlled Post-operative Anemia -hemodynamically stable w/o signs of active bleed - hgb 9 and stable prior to discharge HTN -managed without medications? patient states she only has a problem in the hospital, but was on medications in long term Frequent Falls - appears to be mechanical fall due to sidewalk misalignment, per. pt. report - no electrolyte abnormalities - TTE showing normal LV function EF 65 to 70%, no wall motion abnormalities, no LVH, sclerotic aortic valve without significant stenosis, mild to moderate aortic regurg. - EKG with significant movement artifact but seems to be NSR, not afib Agitation,improved over hospitalization likely due to delirium, risk factors include age, recent procedure, and change in location Code Status: DNR/DNI Total Time Total Time Spent Total Time Spent (In Minutes): see attending attestation Discharge Plan Discharge Items Patient Disposition: Transfer [facility] Reason For Visit: FEMUR FRACTURE Discharge Diagnosis: left hip fracture Activity: Per Instructions section Non-emergency contact: Primary Care Provider Call non-emergency contact if: your symptoms worsen Follow-up/Referrals: Lev Pool DO [Primary Care Provider] - Diet: Regular Addtl Attending Provider Instructions: Previously healthy 81 yo F admitted for management of left intertrochanteric femur fracture. L Intertrochanteric Femur Fracture -s/p ORIF on 08/30 - ASA 81mg daily per ortho. - pain well controlled Post-operative Anemia -hemodynamically stable w/o signs of active bleed - hgb 9 and stable prior to discharge HTN -managed without medications? patient states she only has a problem in the hospital, but was on medications in long term Frequent Falls - appears to be mechanical fall due to sidewalk misalignment, per. pt. report - no electrolyte abnormalities - TTE showing normal LV function EF 65 to 70%, no wall motion abnormalities, no LVH, sclerotic aortic valve without significant stenosis, mild to moderate aortic regurg. - EKG with significant movement artifact but seems to be NSR, not afib Agitation,improved over hospitalization likely due to delirium, risk factors include age, recent procedure, and change in location Code Status: DNR/DNI Pending Studies at Discharge: No Stand-Alone Forms: [facility] Skilled Items Patient informed of condition?: Yes DNR: Yes Discharge Level of Care: Other Communicable Disease: No Discharge Prognosis: Improving Lines: Peripheral IV Urinary Catheter: No Medications and DC Order Prescriptions: Continued Shingrix (PF) 50 mcg/0.5 mL suspension for reconstitution 0.5 ml IM .COMPLEX Qty: 1 RF: 1 aspirin [Aspirin Low Dose] 81 mg Tablet,Delayed Release (Dr/Ec) 81 mg PO DAILY RF: 0 Discharge Orders: Discharge Order (Routine); Ordered 09/06/21 Ordered By: Munir Fofana Admission Data Admit Date/Time: 08/30/21 00:07 Attending Provider: Viv Barrera Admit Provider: Yenny Chan Primary Care Provider: Lev Pool Other Providers: Mega Locke ; Manuel Siddiqui ; [facility] ; [facility] ; [place],[facility], [place] Other Interventions: Discharge Summary Assessment (RN) Last Done: 09/06/21 10:30 Supervising Physician Co-Signing Physician Notes Resident Physician Supervision Note: I independently interviewed and examined the patient and verified the ledesma history and physical, reviewed labs and image studies and agree with resident Dr. Fofana findings and care plan. Resident Activity Tracking Resident Involvement: Resident Care Provided Care Provided: Adult Hospital Medicine CBC Results Results Complete Blood Count Results: RBC 2.97 M/uL (4.2-5.4) L 09/06/21 WBC 7.92 K/uL (4.8-10.8) 09/06/21 Hgb 9.0 g/dL (12.0-16.0) L 09/06/21 Hct 28.3 % (37-47) L 09/06/21 Plt Count 490 K/uL (130-400) H 09/06/21
--- NOTE | 2021-09-24 09:01 | Coding Query ---
ANEMIA To promote full compliance with coding requirements relating to patient care, physician participation is requested in all cases of flexographic printing machinist uncertainty. Please assist us with the question(s) below: Coding Question(s): The record reflects the following clinical findings: Patient postop hip fracture repair. 09/02 hospitalist progress note stated " postop anemia 13.6 admission downtrending to 8.4 s/p hip fracture. Likely postoperative losses and hemodilution". If these findings are indicative of anemia, please specify the known or suspected type by placing an "X" within the parenthesis (x). If other, please document type. Examples are: (x ) Acute blood loss anemia ( ) Acute Postoperative blood loss anemia ( ) Acute postoperative anemia due to dilutional fluids ( ) Chronic blood loss anemia ( ) Anemia of chronic disease ( ) Aplastic anemia ( ) Anemia due to renal disease ( ) Anemia in neoplastic disease ( ) Iron deficient anemia ( ) Anemia, unspecified or other ( ) Other: (please specify) ( ) Unable to determine Thank you WAQAR Vazquez [facility]PITALJuana
== END 2021-09-06 11:15 | DRG 481 ==
LOC: ED 19:53 → EDINP 23:56 → SUATTDRO 23:56 → EDINP 08-30 01:50 → 3W 08-30 05:34

== ENCOUNTER 2022-07-30 17:10 | Inpatient (IN) ==
--- NOTE | 2022-07-30 17:18 | ED Triage Note ---
Date of Service July 30, 2022 History of Present Illness This patient was briefly evaluated while in triage. An abbreviated physical exam was performed. This patient is a 82-year-old Female with past medical history of HTN, frequent falls, who presents to the ED for evaluation of right hip pain after she stepped back and tripped over a stool while in an argument with her . Physical Exam VITALS: Vitals are noted on the nurse's note and reviewed by myself. GENERAL: This is an 82 year old female, in no acute distress, nondiaphoretic, well-developed well-nourished. SKIN: No obvious rashes, edema, erythema HEAD: Normocephalic atraumatic. EYES: Conjunctivae without injection, sclerae without icterus. NECK: No JVD. LUNGS: No retractions or accessory muscle use. MUSCULOSKELETAL: Pt. presents in a wheelchair. NEURO: Patient was alert and oriented. No focal neurological deficits. Initial orders for labs and / or imaging were placed and patient was placed in the waiting area until a bed is available. Please see further documentation for the full ED course.
--- NOTE | 2022-07-30 18:16 | XRay Report ---
XR hip RT 2V w pelvis CLINICAL HISTORY: Fall. Right hip pain. COMPARISON STUDY: Pelvis and left hip 12/11/2021. FINDINGS: There is a right hip hemiarthroplasty again noted. The hardware appears intact. The bones a re osteopenic. Small nondisplaced fracture at the tip of the right greater trochanter. Otherwise, no acute fracture or dislocation within the pelvis or left hip. There are postoperative changes again no shahla within the left hip. Large amount of stool seen within the colon/rectum. IMPRESSION: Small nondisplaced fracture at the tip of the right greater trochanter ACT 112: Negative or not required by law. Electronically signed by: Denis Perez M.D. 07/30/2022 6:14 PM
--- NOTE | 2022-07-30 20:14 | Emergency Department Note ---
ED Visit Note I was consulted by the Advanced Practice Provider Adrián Saunders PA-C. I saw the patient personally and performed a substantive portion of the visit. This includes aspects of the HPI, MDM, diagnostic interpretations, and disposition/plan. Patient presented after a ground-level fall and has a slight chip fracture to the trochanter of the right hip. The patient does have some unsteady gait concern for fall risk and the patient was admitted to the medicine service. Orthopedics is aware and will consult on the patient .
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
[2022-07-30 20:41] LABS: Alanine Aminotransferase 16 U/L (7-52); Albumin Globulin Ratio 1.4 (0.9-2); Albumin Level 4.4 gm/dl (3.4-5.0); Alkaline Phosphatase 63 U/L (34-104); Anion Gap 9 (3-11); Aspartate Aminotransferase 21 U/L (13-39); BUN Creatinine Ratio 18.2 (10-20); Bilirubin,Total 0.7 mg/dl (0.2-1.0); Blood Urea Nitrogen 16 mg/dl (6-23); Calcium 10.3 mg/dl (8.5-10.1); Carbon Dioxide 26 mmol/L (21-32); Chloride 107 mmol/L (98-107); Est GFR (African American) 69.9 ml/min; Est GFR (Non-African American) 60.3 ml/min; Globulin 3.2 gm/dl (2.5-4.0); Glucose 111 mg/dl (70-99(Fasting)); Potassium 3.7 mmol/L (3.5-5.1); Sodium 142 mmol/L (136-145); Total Protein 7.6 gm/dl (6.0-8.3)
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
[2022-07-30 20:54] LABS: Basophils # (auto) 0.06 K/uL (0-0.2); Basophils % (auto) 0.5 %; Eosinophils # (auto) 0.04 K/uL (0-0.50); Eosinophils % (auto) 0.3 %; Hematocrit (blood only) 41.2 % (34.1-44.9); Hemoglobin 13.8 g/dl (12.0-16.0); Immature Granulocytes # (auto) 0.04 K/uL (0.00-0.02); Immature Granulocytes % (auto) 0.3 %; Lymphocytes # (auto) 2.06 K/uL (1.2-3.4); Lymphocytes % (auto) 15.7 %; Mean Corpuscular Hemoglobin 31.8 pg (25.0-34.0); Mean Corpuscular Hgb Conc 33.5 g/dL (32.0-36.0); Mean Corpuscular Volume 94.9 fL (80.0-100.0); Monocytes # (auto) 1.17 K/uL (0.24-0.82); Monocytes % (auto) 8.9 %; Neutrophils # (auto) 9.75 K/uL (1.4-6.5); Neutrophils % (auto) 74.3 %; Platelet Count 340 K/uL (130-400); RDW Standard Deviation 49.1 fL (36.4-46.3); Red Blood Count 4.34 M/uL (3.93-5.22); White Blood Count 13.12 K/ul (4.8-10.8)
[2022-07-30] MEDS ORDERED: POLYETHYLENE (MIRALAX) 17 GM PACK PO PRN (22:13)
[2022-07-30] MEDS ORDERED: ONDANSETRON INJ 2 MG/ML 2 ML VIAL IV PRN (22:13)
[2022-07-30] MEDS ORDERED: KETOROLAC TROMETHAMINE 15 MG/ML VIAL IV PRN (22:31)
[2022-07-30] MEDS ORDERED: Patient's HEIGHT &/or WEIGHT Needed SCH (22:45)
[2022-07-30] MEDS ORDERED: LABETALOL HCL IV 5 MG/ML 20ML IV STA (23:09)
[2022-07-30] MEDS ORDERED: hydrALAZINE HCL 20 MG/ML VIAL IV ONE (23:10)
[2022-07-30] MEDS: HEPARIN SOD 5,000 UNIT/0.5 ML VIAL SQ SCH (23:53)
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
[2022-07-31] MEDS: HEPARIN SOD 5,000 UNIT/0.5 ML VIAL SQ SCH ×2 (08:46→19:36)
--- NOTE | 2022-07-31 15:36 | Hospitalist Progress Note ---
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 -Pt allergic to tylenol. Toradol prn for pain relief. -PT/OT ordered -SNF when accepted (2) Hypertension: Plan: Hypertensive Crisis on admission, with BP above 200 systolic Treated with IV Labetalol and Hrdralazine BP now under better control (3) Malnutrition: Plan: BMI 17 will add nutritional supplements (4) Age-related cognitive decline: Plan: Age related cognitive decline -AOx3, daughter states pt has dementia with waxing/waning delirium which has been worsening over the past few years (5) Fall: Plan DVT ppx: lovenox 30mg q24 FEN/GI: regular Code Status: DNI/DNR SNF when accepted Admission and Anticipated Discharge Date Admission Date: July 30, 2022 Results & Data Results & Data ([facility]) Vital Signs (Past 12 Hours) Vital Signs Temp Pulse Resp BP Pulse Ox O2 Del Method 07/31/22 07:45 97.9 F 74 17 164/83 H 95 Room Air PG Care Time/CCT Total # of Minutes Spent Total Time Spent with Patient: Total time spent is greater than 50% in coordination of care (as documented) at patient's floor/unit and/or counseling patient: Coding Level of Care Code 82581 Subseq Hosp Care Lvl 2 Diagnoses Fracture of greater trochanter of right femur S72.111A Hypertension I10 Malnutrition E46 Age-related cognitive decline R41.81 Fall W19.XXXA Time Spent (min) 35
--- NOTE | 2022-07-31 20:09 | Billing Data ---
Date of Service July 31, 2022 Coding Level of Care Code 61053 Initial Inpt Care Lvl 2
[2022-08-01] MEDS: HEPARIN SOD 5,000 UNIT/0.5 ML VIAL SQ SCH ×2 (08:33→22:17)
--- NOTE | 2022-08-01 12:06 | Orthopedic Progress Note ---
Date of Service August 01, 2022 Assessment & Plan (1) Fracture of greater trochanter of right femur: Plan: Patient was educated regarding today's findings. Her hip is moving well. A nondisplaced avulsion does not seem to be giving her any difficulty. I will defer to the hospitalist service as to appropriateness for discharge. She was able to participate with both PT and OT, and was able to ambulate 40 feet with her walker. She did require frequent and almost constant cueing and reminders due to her impulsiveness. Follow-up in the office for reevaluation in 10 to 14 days. Admission and Anticipated Discharge Date Admission Date: July 30, 2022 Subjective This 82-year-old female seen today in her room. She currently has no com plaints. She denies any hip pain. She states she saw her doctor last evening around 5 PM and was told that her hip was not broken. She states she was told it she only has a bruise. She is wondering why she is still in the hospital and would like to go home. She would like to call her and leave the hospital today. She has no other complaints. She is currently perseverating on being released from the hospital. Physical Exam Physical Exam: General: Thin, elderly female, in no acute distress. Sitting in bed. Alert and conversive. Oriented to place. Skin: Warm and dry with fair turgor. No rashes. No ecchymosis or edema. Musculoskeletal: Patient has supple motion of her right hip. She is able to perform a straight leg raise. She is able to internally and externally rotate on her own. She has no pain with palpation over the greater trochanter at this point. Good flexion of the hip and knee. Neurologic: Gross sensation is intact across the right leg by soft touch. Peripheral pulses are 2+. Results & Data ([facility]) Vital Signs (Past 12 Hours) Vital Signs Temp Pulse Resp BP Pulse Ox O2 Del Method 08/01/22 09:05 36.5 C 98 H 17 185/96 H 93 Room Air
--- NOTE | 2022-08-01 15:53 | Hospitalist Progress Note ---
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 -Pt allergic to tylenol. Toradol prn for pain relief. -PT/OT ordered -SNF when accepted, however, patient insists she wants to go home, I called the who says she has to go to rehab as advised by the doctors (2) Hypertension: Plan: Hypertensive Crisis on admission, with BP above 200 systolic Treated with IV Labetalol and Hrdralazine BP now under better control (3) Malnutrition: Plan: BMI 17 will add nutritional supplements (4) Age-related cognitive decline: Plan: Age related cognitive decline -AOx3, daughter states pt has dementia with waxing/waning delirium which has been worsening over the past few years (5) Fall: Plan DVT ppx: lovenox 30mg q24 FEN/GI: regular Code Status: DNI/DNR SNF when accepted , although patient adamant she wants to go home Admission and Anticipated Discharge Date Admission Date: July 30, 2022 Subjective patient seen and examined, says she wants to go home Review of Systems Review of Systems: All systems reviewed are negative, apart from the ones contained in the history. Physical Exam Physical Exam: The patient is awake, alert and oriented 3, well developed and well nourished, normocephalic and atraumatic, lying in bed and in no acute distress. HEENT--PERRL, EOMI, mucous membranes and oropharynx mildly dry Neck--supple. No JVD. No bruits. Thyroid normal, trachea midline, no adenopathy. Heart--normal S1 and S2. No murmurs, rubs or gallops. Lungs--clear bilaterally, no respiratory distress, no accessory muscle use. Abdomen--normal bowel sounds and soft. Mild epigastric and left sided abdominal pain Extremities--no cyanosis or clubbing. No edema. Dermatologic--normal skin turgor, normal color, no abnormal lymph nodes, no rash. Neurologic--cranial nerves II through XII grossly intact. Rheumatologic--normal range of motion. Psychiatric--normal affect. Results & Data Results & Data ([facility]) Vital Signs (Past 12 Hours) Vital Signs Temp Pulse Resp BP BP Pulse Ox O2 Del Method 08/01/22 14:59 98.2 F 98 H 17 167/95 H 93 Room Air 08/01/22 09:05 97.7 F 98 H 17 185/96 H 93 Room Air PG Care Time/CCT Total # of Minutes Spent Total Time Spent with Patient: Total time spent is greater than 50% in coordination of care (as documented) at patient's floor/unit and/or counseling patient: Coding Level of Care Code 25816 Subseq Hosp Care Lvl 2 Diagnoses Fracture of greater trochanter of right femur S72.111A Hypertension I10 Malnutrition E46 Age-related cognitive decline R41.81 Fall W19.XXXA Time Spent (min) 35
[2022-08-02] MEDS: HEPARIN SOD 5,000 UNIT/0.5 ML VIAL SQ SCH ×2 (08:12→21:51)
--- NOTE | 2022-08-02 14:40 | Hospitalist Progress Note ---
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 -Pt allergic to tylenol. Toradol prn for pain relief. -PT/OT ordered -SNF when accepted, however, patient insists she wants to go home, I called the who says she has to go to rehab as advised by the doctors -Today, patient now more amenable to go to rehab after resistance from the (2) Hypertension: Plan: Hypertensive Crisis on admission, with BP above 200 systolic Treated with IV Labetalol and Hydralazine BP now under better control, 155/81 today (3) Malnutrition: Plan: BMI 17 will continue nutritional supplements (4) Age-related cognitive decline: Plan: Age related cognitive decline -AOx3, daughter states pt has dementia with waxing/waning delirium which has been worsening over the past few years (5) Fall: Plan DVT ppx: lovenox 30mg q24 FEN/GI: regular Code Status: DNI/DNR SNF when accepted Admission and Anticipated Discharge Date Admission Date: July 30, 2022 Subjective patient seen and examined, says she wants to go home, however, now more amenable to rehab after her resisted the idea of home Review of Systems Review of Systems: All systems reviewed are negative, apart from the ones contained in the history. Physical Exam Physical Exam: The patient is awake, alert and oriented 3, well developed and well nourished, normocephalic and atraumatic, lying in bed and in no acute distress. HEENT--PERRL, EOMI, mucous membranes and oropharynx mildly dry Neck--supple. No JVD. No bruits. Thyroid normal, trachea midline, no adenopathy. Heart--normal S1 and S2. No murmurs, rubs or gallops. Lungs--clear bilaterally, no respiratory distress, no accessory muscle use. Abdomen--normal bowel sounds and soft. Mild epigastric and left sided abdominal pain Extremities--no cyanosis or clubbing. No edema. Dermatologic--normal skin turgor, normal color, no abnormal lymph nodes, no rash. Neurologic--cranial nerves II through XII grossly intact. Rheumatologic--normal range of motion. Psychiatric--normal affect. Results & Data Results & Data ([facility]) Vital Signs (Past 12 Hours) Vital Signs Temp Pulse Resp BP Pulse Ox O2 Del Method 08/02/22 07:30 97.3 F L 73 18 155/81 H 94 Room Air PG Care Time/CCT Total # of Minutes Spent Total Time Spent with Patient: Total time spent is greater than 50% in coordination of care (as documented) at patient's floor/unit and/or counseling patient: Coding Level of Care Code 29405 Subseq Hosp Care Lvl 2 Diagnoses Fracture of greater trochanter of right femur S72.111A Hypertension I10 Malnutrition E46 Age-related cognitive decline R41.81 Fall W19.XXXA Time Spent (min) 35
[2022-08-03 07:57] LABS: Hematocrit (blood only) 38.7 % (34.1-44.9); Hemoglobin 12.7 g/dl (12.0-16.0); Mean Corpuscular Hemoglobin 30.8 pg (25.0-34.0); Mean Corpuscular Hgb Conc 32.8 g/dL (32.0-36.0); Mean Corpuscular Volume 93.7 fL (80.0-100.0); Mean Platelet Volume 10.5 fL (9.4-12.3); Platelet Count 222 K/uL (130-400); RDW Coefficient of Variation 13.9 % (11.5-14.5); RDW Standard Deviation 47.8 fL (36.4-46.3); Red Blood Count 4.13 M/uL (3.93-5.22); White Blood Count 8.79 K/ul (4.8-10.8)
[2022-08-03] MEDS: HEPARIN SOD 5,000 UNIT/0.5 ML VIAL SQ SCH ×2 (08:09→20:43)
[2022-08-03 08:31] LABS: Anion Gap 5 (3-11); BUN Creatinine Ratio 30.8 (10-20); Blood Urea Nitrogen 24 mg/dl (6-23); Calcium 8.7 mg/dl (8.5-10.1); Carbon Dioxide 24 mmol/L (21-32); Chloride 110 mmol/L (98-107); Creatinine Clr Calc Pharmacy 36.2 ml/min; Est GFR (African American) 80.9 ml/min; Est GFR (Non-African American) 69.8 ml/min; Glucose 83 mg/dl (70-99(Fasting)); Sodium 139 mmol/L (136-145)
[2022-08-03] MEDS: amLODIPine BESYLATE 5 MG TAB PO ONE ×2 (15:51→15:53)
--- NOTE | 2022-08-03 16:04 | Hospitalist Progress Note ---
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 -Pt allergic to tylenol. Toradol prn for pain relief. -PT/OT ordered -SNF when accepted, however, patient insists she wants to go home, I called the who says she has to go to rehab as advised by the doctors -Patient now more amenable to go to rehab (2) Hypertension: Plan: Hypertensive Crisis on admission, with BP above 200 systolic Treated with IV Labetalol and Hydralazine BP now under better control, On scheduled Amlodipine 5mg daily (3) Malnutrition: Plan: BMI 17 will continue nutritional supplements (4) Age-related cognitive decline: Plan: Age related cognitive decline -AOx3, daughter states pt has dementia with waxing/waning delirium which has been worsening over the past few years (5) Fall: Plan DVT ppx: lovenox 30mg q24 FEN/GI: regular Code Status: DNI/DNR SNF when accepted Admission and Anticipated Discharge Date Admission Date: July 30, 2022 Subjective patient seen and examined, no new complaints Review of Systems Review of Systems: All systems reviewed are negative, apart from the ones contained in the history. Physical Exam Physical Exam: The patient is awake, alert and oriented 3, well developed and well nourished, normocephalic and atraumatic, lying in bed and in no acute distress. HEENT--PERRL, EOMI, mucous membranes and oropharynx mildly dry Neck--supple. No JVD. No bruits. Thyroid normal, trachea midline, no adenopathy. Heart--normal S1 and S2. No murmurs, rubs or gallops. Lungs--clear bilaterally, no respiratory distress, no accessory muscle use. Abdomen--normal bowel sounds and soft. Mild epigastric and left sided abdominal pain Extremities--no cyanosis or clubbing. No edema. Dermatologic--normal skin turgor, normal color, no abnormal lymph nodes, no rash. Neurologic--cranial nerves II through XII grossly intact. Rheumatologic--normal range of motion. Psychiatric--normal affect. Results & Data Results & Data ([facility]) Vital Signs (Past 12 Hours) Vital Signs Temp Pulse Resp BP BP Pulse Ox O2 Del Method 08/03/22 14:49 99.0 F 92 H 16 162/85 H 95 Room Air 08/03/22 10:24 158/78 H 08/03/22 07:50 97.3 F L 75 18 169/95 H 96 Room Air PG Care Time/CCT Total # of Minutes Spent Total Time Spent with Patient: Total time spent is greater than 50% in coordination of care (as documented) at patient's floor/unit and/or counseling patient: Coding Level of Care Code 17420 Subseq Hosp Care Lvl 2 Diagnoses Fracture of greater trochanter of right femur S72.111A Hypertension I10 Malnutrition E46 Age-related cognitive decline R41.81 Fall W19.XXXA Time Spent (min) 35
[2022-08-04] MEDS: HEPARIN SOD 5,000 UNIT/0.5 ML VIAL SQ SCH ×2 (08:29→19:41)
[2022-08-04] MEDS: amLODIPine BESYLATE 5 MG TAB PO SCH (08:30)
[2022-08-04] MEDS ORDERED: hydroCHLOROthiazide 25 MG TAB PO STA (14:39)
--- NOTE | 2022-08-04 14:56 | Hospitalist Progress Note ---
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 -Pt allergic to tylenol. Toradol prn for pain relief. -PT/OT ordered -SNF when accepted, she initially refused, but now amenable - (2) Hypertension: Plan: Hypertensive Crisis on admission, with BP above 200 systolic Treated with IV Labetalol and Hydralazine BP still elevated, 180/87 On scheduled Amlodipine 5mg daily and HCTZ 25mg, but she refuses to take her medication (3) Malnutrition: Plan: BMI 17 will continue nutritional supplements (4) Age-related cognitive decline: Plan: Age related cognitive decline -AOx3, daughter states pt has dementia with waxing/waning delirium which has been worsening over the past few years (5) Fall: Plan DVT ppx: lovenox 30mg q24 FEN/GI: regular Code Status: DNI/DNR SNF when accepted Admission and Anticipated Discharge Date Admission Date: July 30, 2022 Subjective patient seen and examined, no new complaints Review of Systems Review of Systems: All systems reviewed are negative, apart from the ones contained in the history. Physical Exam Physical Exam: The patient is awake, alert and oriented 3, well developed and well nourished, normocephalic and atraumatic, lying in bed and in no acute distress. HEENT--PERRL, EOMI, mucous membranes and oropharynx mildly dry Neck--supple. No JVD. No bruits. Thyroid normal, trachea midline, no adenopathy. Heart--normal S1 and S2. No murmurs, rubs or gallops. Lungs--clear bilaterally, no respiratory distress, no accessory muscle use. Abdomen--normal bowel sounds and soft. Mild epigastric and left sided abdominal pain Extremities--no cyanosis or clubbing. No edema. Dermatologic--normal skin turgor, normal color, no abnormal lymph nodes, no rash. Neurologic--cranial nerves II through XII grossly intact. Rheumatologic--normal range of motion. Psychiatric--normal affect. Results & Data Results & Data ([facility]) Vital Signs (Past 12 Hours) Vital Signs Temp Pulse Resp BP Pulse Ox O2 Del Method 08/04/22 07:26 97.7 F 80 16 180/87 H 98 Room Air PG Care Time/CCT Total # of Minutes Spent Total Time Spent with Patient: Total time spent is greater than 50% in coordination of care (as documented) at patient's floor/unit and/or counseling patient: Coding Level of Care Code 00709 Subseq Hosp Care Lvl 2 Diagnoses Fracture of greater trochanter of right femur S72.111A Hypertension I10 Malnutrition E46 Age-related cognitive decline R41.81 Fall W19.XXXA Time Spent (min) 35
[2022-08-05] MEDS: amLODIPine BESYLATE 5 MG TAB PO SCH (08:41)
[2022-08-05] MEDS: hydroCHLOROthiazide 25 MG TAB PO SCH (08:42)
[2022-08-05] MEDS: HEPARIN SOD 5,000 UNIT/0.5 ML VIAL SQ SCH ×2 (08:42→20:52)
[2022-08-05 10:31] LABS: Hemoglobin 13.5 g/dl (12.0-16.0); Mean Corpuscular Hemoglobin 31.2 pg (25.0-34.0); Mean Corpuscular Hgb Conc 32.1 g/dL (32.0-36.0); Mean Platelet Volume 9.3 fL (9.4-12.3); Platelet Count 367 K/uL (130-400); RDW Standard Deviation 50.1 fL (36.4-46.3); Red Blood Count 4.33 M/uL (3.93-5.22); White Blood Count 9.75 K/ul (4.8-10.8)
[2022-08-05 10:57] LABS: BUN Creatinine Ratio 37.8 (10-20); Calcium 9.2 mg/dl (8.5-10.1); Creatinine Clr Calc Pharmacy 31.4 ml/min; Est GFR (African American) 68.1 ml/min; Est GFR (Non-African American) 58.7 ml/min; Potassium 3.4 mmol/L (3.5-5.1)
--- NOTE | 2022-08-05 16:05 | Hospitalist Progress Note ---
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 - Found to have fracture of the greater trochanter of the right femur, following a fall at home - Ortho consulted, they recommend, non-operative hip fx based on imaging, partial weightbearing using a flatfoot and approximately 20 to 25 pounds of pressure on the right leg, using a walker. - PT/OT ordered - SNF when accepted, she initially refused, but now amenable (2) Hypertension: Plan: Hypertensive Crisis on admission, with BP above 200 systolic. Treated with IV labetalol and hydralazine. BP down today to 135/85. - Continue amlodipine & HCTZ (3) Malnutrition: Plan: BMI 17 - Will continue nutritional supplements (4) Age-related cognitive decline: Plan: Age related cognitive decline. AOx3, daughter states pt has dementia with waxing/waning delirium which has been worsening over the past few years. - Conservative measures including frequent re-orientation, encourage good da y/night cycles. (5) Fall: Plan: Mechanical in nature with patient hitting corner of table as she backed up. No concern for syncope or cardiac cause. - PT/OT as above Plan DVT ppx: Heparin 5,000 units SQ Q12h Admission and Anticipated Discharge Date Admission Date: July 30, 2022 Subjective Doing well today. No right hip pain. Very pleasant. Reports no fevers/chills, chest pain, shortness of breath, abdominal pain, nausea, or vomiting. Physical Exam Constitutional: WD/WN, vitals as above Eyes: EOM intact bilaterally; no conjunctival abnormality ENMT: external ear and nose normal, oropharynx normal Neck: trachea midline, no thyromegaly normal visual inspection Respiratory: normal respiratory effort, lungs clear to auscultation no respiratory distress Cardiovascular: RRR, no murmur, no edema Gastrointestinal (Abdomen): Inspection/Auscultation: abdomen normal to inspection; abdomen not distended Musculoskeletal: no cyanosis or clubbing, extremities motor strength 5/5 Skin: no rashes, warm and dry Neurologic: moves all extremities and awake Psychiatric: Orientation: alert, oriented to person and cooperative Results & Data Results & Data ([facility]) Vital Signs (Past 12 Hours) Vital Signs Temp Pulse Pulse Resp BP Pulse Ox O2 Del Method 08/05/22 14:53 36.6 C 90 18 134/85 93 Room Air 08/05/22 08:14 36.4 C L 72 18 165/91 H 96 Room Air PG Care Time/CCT Total # of Minutes Spent Total Time Spent with Patient: Total time spent is greater than 50% in coordination of care (as documented) at patient's floor/unit and/or counseling patient: Coding Level of Care Code 37671 Subseq Hosp Care Lvl 3 Diagnoses Fracture of greater trochanter of right femur S72.111A Hypertension I10 Malnutrition E46 Age-related cognitive decline R41.81 Fall W19.XXXA
[2022-08-06] MEDS: hydroCHLOROthiazide 25 MG TAB PO SCH (08:46)
[2022-08-06] MEDS: HEPARIN SOD 5,000 UNIT/0.5 ML VIAL SQ SCH ×2 (08:47→20:50)
[2022-08-06] MEDS: amLODIPine BESYLATE 5 MG TAB PO SCH (08:47)
--- NOTE | 2022-08-06 19:08 | Hospitalist Progress Note ---
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 - Found to have fracture of the greater trochanter of the right femur, following a fall at home - Ortho consulted, they recommend non-operative hip fx based on imaging, partial weightbearing using a flatfoot and approximately 20 to 25 pounds of pressure on the right leg, using a walker. - PT/OT ordered - SNF when accepted, she initially refused, but now amenable. Still working with case management. (2) Hypertension: Plan: Hypertensive Crisis on admission, with BP above 200 systolic. Treated with IV labetalol and hydralazine. BP today is 140/85. - Continue amlodipine & HCTZ (3) Malnutrition: Plan: BMI 17 - Will continue nutritional supplements (4) Age-related cognitive decline: Plan: Age related cognitive decline. AOx3, daughter states pt has dementia with waxing/waning delirium which has been worsening over the past few years. - Conservative measures including frequent re-orientation, encourage good day/night cycles. (5) Fall: Plan: Mechanical in nature with patient hitting corner of table as she backed up. No concern for syncope or cardiac cause. - PT/OT as above Plan DVT ppx: Heparin 5,000 units SQ Q12h Admission and Anticipated Discharge Date Admission Date: July 30, 2022 Subjective Doing well today. No right hip pain. Very pleasant. Speaks quite a bit, but not at all unhappy. Reports no fevers/chills, chest pain, shortness of breath, abdominal pain, nausea, or vomiting. Physical Exam Constitutional: WD/WN, vitals as above Eyes: EOM intact bilaterally; no conjunctival abnormality ENMT: external ear and nose normal, oropharynx normal Neck: trachea midline, no thyromegaly normal visual inspection Respiratory: normal respiratory effort, lungs clear to auscultation no respiratory distress Cardiovascular: RRR, no murmur, no edema Gastrointestinal (Abdomen): Inspection/Auscultation: abdomen normal to inspection; abdomen not distended Musculoskeletal: no cyanosis or clubbing, extremities motor strength 5/5 Skin: no rashes, warm and dry Neurologic: moves all extremities and awake Psychiatric: Orientation: alert, oriented to person and cooperative Results & Data Results & Data ([facility]) Vital Signs (Past 12 Hours) Vital Signs Temp Pulse Pulse Resp BP Pulse Ox O2 Del Method 08/06/22 14:50 36.9 C 105 H 18 142/84 H 95 Room Air 08/06/22 08:27 36.5 C 76 18 154/82 H 95 Room Air PG Care Time/CCT Total # of Minutes Spent Total Time Spent with Patient: Total time spent is greater than 50% in coordination of care (as documented) at patient's floor/unit and/or counseling patient: Coding Level of Care Code 63796 Subseq Hosp Care Lvl 2 Diagnoses Fracture of greater trochanter of right femur S72.111A Hypertension I10 Malnutrition E46 Age-related cognitive decline R41.81 Fall W19.XXXA
[2022-08-06] MEDS ORDERED: IBUPROFEN 200 MG TAB PO STA (20:58)
[2022-08-07] MEDS: amLODIPine BESYLATE 5 MG TAB PO SCH (09:23)
[2022-08-07] MEDS: hydroCHLOROthiazide 25 MG TAB PO SCH (09:23)
[2022-08-07] MEDS: HEPARIN SOD 5,000 UNIT/0.5 ML VIAL SQ SCH ×2 (09:24→19:55)
--- NOTE | 2022-08-07 15:38 | Hospitalist Progress Note ---
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 - Found to have fracture of the greater trochanter of the right femur, following a fall at home - Ortho consulted, they recommend non-operative hip fx based on imaging, partial weight-bearing using a flatfoot and approximately 20 to 25 pounds of pressure on the right leg, using a walker. - PT/OT ordered - SNF when accepted, she initially refused, but now amenable. Denied by insurance for acute rehab, so will aim for SNF. (2) Hypertension: Plan: Hypertensive Crisis on admission, with BP above 200 systolic. Treated with IV labetalol and hydralazine. BP today is 120/75. - Continue amlodipine & HCTZ (3) Malnutrition: Plan: BMI 17 - Will continue nutritional supplements (4) Age-related cognitive decline: Plan: Age related cognitive decline. AOx3, daughter states pt has dementia with waxing/waning delirium which has been worsening over the past few years. - Conservative measures including frequent re-orientation, encourage good day/night cycles. (5) Fall: Plan: Mechanical in nature with patient hitting corner of table as she backed up. No concern for syncope or cardiac cause. - PT/OT as above Plan DVT ppx: Heparin 5,000 units SQ Q12h Admission and Anticipated Discharge Date Admission Date: July 30, 2022 Subjective Doing well today. Continues to have no pain. Reports no fevers/chills, chest pain, shortness of breath, abdominal pain, nausea, or vomiting. Physical Exam Constitutional: WD/WN, vitals as above Eyes: EOM intact bilaterally; no conjunctival abnormality ENMT: external ear and nose normal, oropharynx normal Neck: trachea midline, no thyromegaly normal visual inspection Respiratory: normal respiratory effort, lungs clear to auscultation no respiratory distress Cardiovascular: RRR, no murmur, no edema Gastrointestinal (Abdomen): Inspection/Auscultation: abdomen normal to inspection; abdomen not distended Musculoskeletal: no cyanosis or clubbing, extremities motor strength 5/5 Skin: no rashes, warm and dry Neurologic: moves all extremities and awake Psychiatric: Orientation: alert, oriented to person and cooperative Results & Data Results & Data ([facility]) Vital Signs (Past 12 Hours) Vital Signs Temp Pulse Resp BP Pulse Ox O2 Del Method 08/07/22 15:07 36.4 C L 76 15 119/76 96 Room Air 08/07/22 07:31 36.4 C L 72 15 161/85 H 97 Room Air PG Care Time/CCT Total # of Minutes Spent Total Time Spent with Patient: Total time spent is greater than 50% in coordination of care (as documented) at patient's floor/unit and/or counseling patient: Coding Level of Care Code 15645 Subseq Hosp Care Lvl 2 Diagnoses Fracture of greater trochanter of right femur S72.111A Hypertension I10 Malnutrition E46 Age-related cognitive decline R41.81 Fall W19.XXXA
[2022-08-07] MEDS: guaiFENesin 600 MG TABCR PO SCH (19:55)
[2022-08-08] MEDS: guaiFENesin 600 MG TABCR PO SCH ×2 (08:36→19:52)
[2022-08-08] MEDS: amLODIPine BESYLATE 5 MG TAB PO SCH (08:36)
[2022-08-08] MEDS: hydroCHLOROthiazide 25 MG TAB PO SCH (08:36)
[2022-08-08] MEDS: HEPARIN SOD 5,000 UNIT/0.5 ML VIAL SQ SCH ×2 (08:37→19:52)
--- NOTE | 2022-08-08 11:43 | Hospitalist Progress Note ---
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 - Found to have fracture of the greater trochanter of the right femur, following a fall at home - Ortho consulted, they recommend non-operative hip fx based on imaging, partial weight-bearing using a flatfoot and approximately 20 to 25 pounds of pressure on the right leg, using a walker. - PT/OT ordered - SNF when accepted, she initially refused, but now amenable. Denied by insurance for acute rehab, so will aim for SNF. No change today. (2) Hypertension: Plan: Hypertensive Crisis on admission, with BP above 200 systolic. Treated with IV labetalol and hydralazine. BP today is 130/75. - Continue amlodipine & HCTZ (3) Malnutrition: Plan: BMI 17 - Will continue nutritional supplements (4) Age-related cognitive decline: Plan: Age related cognitive decline. AOx3, daughter states pt has dementia with waxing/waning delirium which has been worsening over the past few years. - Conservative measures including frequent re-orientation, encourage good day/night cycles. (5) Fall: Plan: Mechanical in nature with patient hitting corner of table as she backed up. No concern for syncope or cardiac cause. - PT/OT as above Plan DVT ppx: Heparin 5,000 units SQ Q12h Admission and Anticipated Discharge Date Admission Date: July 30, 2022 Subjective No issues today. Feels well. Wants to go home. Reports no fevers/chills, chest pain, shortness of breath, abdominal pain, nausea, or vomiting. Physical Exam Constitutional: WD/WN, vitals as above Eyes: EOM intact bilaterally; no conjunctival abnormality ENMT: external ear and nose normal, oropharynx normal Neck: trachea midline, no thyromegaly normal visual inspection Respiratory: normal respiratory effort, lungs clear to auscultation no respiratory distress Cardiovascular: RRR, no murmur, no edema Gastrointestinal (Abdomen): Inspection/Auscultation: abdomen normal to inspection; abdomen not distended Musculoskeletal: no cyanosis or clubbing, extremities motor strength 5/5 Skin: no rashes, warm and dry Neurologic: moves all extremities and awake Psychiatric: Orientation: alert, oriented to person and cooperative Results & Data Results & Data ([facility]) Vital Signs (Past 12 Hours) Vital Signs Temp Pulse Resp BP Pulse Ox O2 Del Method 08/08/22 07:43 36.5 C 74 18 129/75 96 Room Air PG Care Time/CCT Total # of Minutes Spent Total Time Spent with Patient: Total time spent is greater than 50% in coordination of care (as documented) at patient's floor/unit and/or counseling patient: Coding Level of Care Code 66888 Subseq Hosp Care Lvl 1 Diagnoses Fracture of greater trochanter of right femur S72.111A Hypertension I10 Malnutrition E46 Age-related cognitive decline R41.81 Fall W19.XXXA
[2022-08-09] MEDS: guaiFENesin 600 MG TABCR PO SCH ×2 (08:54→19:38)
[2022-08-09] MEDS: hydroCHLOROthiazide 25 MG TAB PO SCH (08:54)
[2022-08-09] MEDS: HEPARIN SOD 5,000 UNIT/0.5 ML VIAL SQ SCH ×2 (08:54→19:39)
[2022-08-09] MEDS: amLODIPine BESYLATE 5 MG TAB PO SCH (08:54)
[2022-08-09] MEDS ORDERED: COUGH DROP (SUGAR FREE) LOZ 24 LOZ/1 BOX BUCCAL ONE (09:00)
--- NOTE | 2022-08-09 16:33 | Hospitalist Progress Note ---
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 - Found to have fracture of the greater trochanter of the right femur, following a fall at home - Ortho consulted, they recommend non-operative hip fx based on imaging, partial weight-bearing using a flatfoot and approximately 20 to 25 pounds of pressure on the right leg, using a walker. - PT/OT ordered - SNF when accepted if possible. She does not want to go. We will need to assess capacity in the hospital as and daughter feel she is not safe to be home and cannot protect herself. (2) Age-related cognitive decline: Plan: Have spoken with both and daughter. Both report that she is impulsive and has emotional dysregulation. Both have done many things to improve safety in the home, and she has actively worked against them. (eg ignoring an installed stair lift, removing night-lights in the hallway). Some elements of even being aggressive toward the at times and fabricating stories to leave the house or disappearing for 2-3 hours. - Will reach out to psychiatry tomorrow re: capability of making medical decisions. - Conservative measures including frequent re-orientation, encourage good day/night cycles. (3) Hypertension: Plan: Hypertensive Crisis on admission, with BP above 200 systolic. Treated with IV labetalol and hydralazine. BP today is 125/75. - Continue amlodipine & HCTZ (4) Malnutrition: Plan: BMI 17 - Will continue nutritional supplements (5) Fall: Plan: Mechanical in nature with patient hitting corner of table as she backed up. No concern for syncope or cardiac cause. - PT/OT as above Plan DVT ppx: Heparin 5,000 units SQ Q12h Admission and Anticipated Discharge Date Admission Date: July 30, 2022 Subjective Feels great. No pain. Wants to go home. Reports no fevers/chills, chest pain, shortness of breath, abdominal pain, nausea, or vomiting. Physical Exam Constitutional: WD/WN, vitals as above Eyes: EOM intact bilaterally; no conjunctival abnormality ENMT: external ear and nose normal, oropharynx normal Neck: trachea midline, no thyromegaly normal visual inspection Respiratory: normal respiratory effort, lungs clear to auscultation no respiratory distress Cardiovascular: RRR, no murmur, no edema Gastrointestinal (Abdomen): Inspection/Auscultation: abdomen normal to inspection; abdomen not distended Musculoskeletal: no cyanosis or clubbing, extremities motor strength 5/5 Skin: no rashes, warm and dry Neurologic: moves all extremities and awake Psychiatric: Orientation: alert, oriented to person and cooperative Results & Data Results & Data ([facility]) Vital Signs (Past 12 Hours) Vital Signs Temp Pulse Pulse Resp BP BP Pulse Ox 08/09/22 15:30 36.6 C 86 16 124/73 95 08/09/22 07:55 36.7 C 66 14 146/84 H 96 O2 Del Method 08/09/22 15:30 Room Air 08/09/22 07:55 Room Air PG Care Time/CCT Total # of Minutes Spent Total Time Spent with Patient: Total time spent is greater than 50% in coordination of care (as documented) at patient's floor/unit and/or counseling patient: Coding Level of Care Code 23297 Subseq Hosp Care Lvl 3 Diagnoses Fracture of greater trochanter of right femur S72.111A Age-related cognitive decline R41.81 Hypertension I10 Malnutrition E46 Fall W19.XXXA
[2022-08-10 07:09] LABS: Hematocrit (blood only) 41.6 % (34.1-44.9); Hemoglobin 13.7 g/dl (12.0-16.0); Mean Corpuscular Hemoglobin 31.1 pg (25.0-34.0); Mean Corpuscular Hgb Conc 32.9 g/dL (32.0-36.0); Mean Corpuscular Volume 94.3 fL (80.0-100.0); Mean Platelet Volume 9.5 fL (9.4-12.3); Platelet Count 487 K/uL (130-400); RDW Coefficient of Variation 13.5 % (11.5-14.5); RDW Standard Deviation 46.5 fL (36.4-46.3); Red Blood Count 4.41 M/uL (3.93-5.22); White Blood Count 8.38 K/ul (4.8-10.8)
[2022-08-10 07:37] LABS: BUN Creatinine Ratio 46.2 (10-20); Calcium 9.3 mg/dl (8.5-10.1); Creatinine Clr Calc Pharmacy 34.3 ml/min; Est GFR (African American) 65.4 ml/min; Est GFR (Non-African American) 56.4 ml/min; Magnesium 2.1 mg/dl (1.7-2.4); Potassium 2.9 mmol/L (3.5-5.1)
[2022-08-10] MEDS: amLODIPine BESYLATE 5 MG TAB PO SCH (08:49)
[2022-08-10] MEDS: guaiFENesin 600 MG TABCR PO SCH ×2 (08:49→19:46)
[2022-08-10] MEDS: hydroCHLOROthiazide 25 MG TAB PO SCH (08:49)
[2022-08-10] MEDS: HEPARIN SOD 5,000 UNIT/0.5 ML VIAL SQ SCH ×2 (08:50→19:45)
--- NOTE | 2022-08-10 12:32 | Psychiatric Consultation ---
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 She is increasingly reliant on and this only amplifies their longstanding marital discord. Given her having achieved high level of education, I suspect she will appear cognitively intact on cognitive screenings and require more detailed neuropsych testing to formally diagnose dementia as her issues are more in processing/planning. She quickly shifts to past memories to avoid discussing more recent memory difficulties or topics re: her behavior. Although she clearly needs assistance with iADLs, she maintains decision making capacity re: return home as she understands the recommendations and the risks of not following them. There is no evidence of psychosis, delirium, or active mood disorder interfering with her medical decision making. There is no indication for acute inpatient psychiatric hospitalization or involuntary commitment. She reports although she won't agree to SNF but that she is willing for in home rehab and other agency services. Findings reviewed with Dr. Pool. It is not clear to me if Office of Aging is actively involved or if they have done a home assessment. As far as additional outpatient w/u in addition to testing for her cognition, I do not have access to a recent B12 and folate level. Current diagnostic imaging is hip/pelvis but I assume she's had a head CT. MRI brain would be more sensitive for microvascular changes. (1) Age-related cognitive decline: Psych History Identifying Data 82 yo female from [place], admit [facility] on 07/30/22 for non operative fx, hx of falls and personality change. Consult is by hospitalist service for decision making capacity. Patient signed DIMA for and daughter who were contacted for collateral given the consult question. Chief Complaint "My should have told me he was treviño in the first place". History of Present Illness Records were reviewed, including some outpatient notes, clock drawing test from last year. Patient has a history of agitation during one episode of delirium that required Haldol. At baseline her personality is described by family as narcissistic and her emotional control has varied due to age related cognitive decline. For example, she was evaluated in the ED on a 302 warrant by police in April (but never committed) during an argument with her where she became angry that he locked himself into a room of their home and she tried to hit the door with a hammer. She was discharged home and was eduated re: [facility] and [facility]. Liaison spoke with daughter, an orthopedic surgeon in [place], who reconfirmed that parents have been for many years. Mother lived with her for 15 y ears before returning to [place] to live with . She described her mother as a narcissist and she had to set boundaries when her mother fired multiple care aides. The patient states she has been agreeable to some of the care aides ([facility], Tony? in the past) and adds that her 's eye sight and gait are "a problem too." She has never wanted to live in a "home" referring to long-term as she's lost familiy members soon after going there but also because she doesn't want her to "get the house, it was mine before we were ." Nursing denies significant behavioral concerns on the floor, she has denied SI/HI. She is oriented. She was perseverative around her 's infideltiy with a male in the past and feels she had to spend time/$ for the care of their daughter. She feels that it is her right to bring these things up to her and gets angry that he doesn't feel guilty. Gene () is retired and gets upset that she has disabled their motion sensors. She has purposely disabled alarms so that she can go for walks. He has had to drive to look for her. These behaviors as described are deliberate rather than due to confusion or wandering. She states that she doesn't announce when she is leaving as she doesn't want her hubsnad to have a chance to helen her belongings in his own locked room. He reported she accuses her of spending their money when in fact he is paying the bills. He related to the liaison there are no guns in the home and that the patient was more combative in the past. She has no prior psychiatric history. Allergies Allergy/AdvReac Type Severity Reaction Status Date / Time acetaminophen [From Tylenol] AdvReac Gastrointestinal Verified 07/30/22 20:33 Upset Home Medications Medication Instructions Recorded Confirmed Type aspirin 81 mg tablet,delayed 81 mg PO BID 09/21/21 07/30/22 History release (Adult Low Dose Aspirin) cholecalciferol (vitamin D3) 25 25 mcg PO DAILY #30 caps 09/25/21 07/30/22 Rx mcg (1,000 unit) capsule ferrous sulfate 325 mg (65 mg 325 mg PO DAILY #30 tabs 09/25/21 07/30/22 Rx iron) tablet,delayed release mecobalamin (vitamin B12) 1,000 1,000 mcg sublingual DAILY #30 tabs 09/25/21 07/30/22 Rx mcg disintegrating tablet,sublingual Personal History Beliefs That Will Affect Care: None Patient History Medical History Closed intertrochanteric fracture of left hip Encounter for pre-operative examination HTN (hypertension) NO MEDS/PT DENIES Surgical History History of ankle surgery Rt History of cataract surgery LEFT History of colonoscopy History of surgery on right wrist History of tonsillectomy History of wisdom tooth extraction Status post hip replacement Rt Partial Family History Mother Breast cancer Brother Stroke Father Bladder cancer Other No family history of adverse response to anesthesia Denies family history of Ovarian cancer Prostate cancer Myocardial infarction Colorectal cancer Social History Smoking Status: Never smoker Second Hand Exposure: No; Hx Alcohol Use: No Hx Substance Use: No Preferred Language: Armenian Communication Ability: Effective Visual Impairment: Limited Hearing Ability: Normal Tow Picker Required: No Beliefs That Will Affect Care: None marital status: Current Living Situation: Spouse Current Living Situation Comment: Reports arguing with , but feels safe at this time current occupational status: retired How many Children do You have: 1 Other Information That Helps Us Care for You: No Feels Safe at Home: Yes Safety Concerns: Feels Safe At This Time Childhood Exposure to Second-Hand Smoke: No caffeine: Yes during the past year weight has: remained stable Dental Care, Regularly: Yes Physical Activity Frequency: Daily Seatbelt Use: always Sunscreen Use: Yes Assistive Devices: Cane, Walker and Wheelchair Physical Exam Psychiatric: Orientation: alert and oriented x 3 Apperance: appropriately dressed and appropriately groomed Eye Contact: good eye contact Motor Behavior: no abnormal motor movements Speech: normal rate/rhythm/volume of speech Affect: euthymic affect Mood: + anxious mood Thought Process: + circumstantial thought process and + perseveration Thought Content: reality based without delusions Suicidal Thoughts: denies suicidal thoughts Homicidal Thoughts: denies homicidal thoughts Hallucinations: no auditory hallucinations and no visual hallucinations Cognition: attention grossly intact and language grossly intact Insight: + limited insight Judgement: + limited judgement Vital Signs (Past 24 Hours): Last Vital Signs Temp 36.5 C 08/10/22 08:31 Pulse 71 08/10/22 08:31 Resp 14 08/10/22 08:31 BP 130/66 08/10/22 08:31 Pulse Ox 96 08/10/22 08:31 O2 Del Method 08/10/22 08:31 Review of Systems All systems reviewed & are unremarkable except as noted in HPI & below Results & Data (PSY) Laboratory Results 08/10/22 08/10/22 Range/Units 06:15 06:15 WBC 8.38 (4.8-10.8) K/ul RBC 4.41 (3.93-5.22) M/uL Hgb 13.7 (12.0-16.0) g/dl Hct 41.6 (34.1-44.9) % MCV 94.3 (80.0-100.0) fL MCH 31.1 (25.0-34.0) pg MCHC 32.9 (32.0-36.0) g/dL RDW Std Deviation 46.5 H (36.4-46.3) fL RDW Coeff of James 13.5 (11.5-14.5) % Plt Count 487 H (130-400) K/uL MPV 9.5 (9.4-12.3) fL Sodium 138 (136-145) mmol/L Potassium 2.9 L (3.5-5.1) mmol/L Chloride 103 (98-107) mmol/L Carbon Dioxide 27 (21-32) mmol/L Anion Gap 8 (3-11) BUN 43 H (6-23) mg/dl Creatinine 0.93 (0.6-1.2) mg/dl Est Cr Clr Drug Dosing 34.3 ml/min Est GFR ( Amer) 65.4 ml/min Est GFR (Non-Af Amer) 56.4 ml/min BUN/Creatinine Ratio 46.2 H (10-20) Glucose 87 (70-99(Fasting)) mg/dl Calcium 9.3 (8.5-10.1) mg/dl Magnesium 2.1 (1.7-2.4) mg/dl Medications Administered Amlodipine Besylate (Amlodipine Besylate 5 Mg Tab) 5 mg PO QAM DENISE Stop: 09/03/22 08:59 Last Admin: 08/10/22 08:49 Dose: 5 mg Documented By: Admin: 08/09/22 08:54 Dose: 5 mg Documented By: Admin: 08/08/22 08:36 Dose: 5 mg Documented By: Admin: 08/07/22 09:23 Dose: 5 mg Documented By: Admin: 08/06/22 08:47 Dose: 5 mg Documented By: Admin: 08/05/22 08:41 Dose: 5 mg Documented By: Admin: 08/04/22 08:30 Dose: Not Given Documented By: YULIA Guaifenesin (Guaifenesin 600 Mg Tabcr) 600 mg PO Q12 DENISE Stop: 09/06/22 20:59 Last Admin: 08/10/22 08:49 Dose: 600 mg Documented By: Admin: 08/09/22 19:38 Dose: 600 mg Documented By: Admin: 08/09/22 08:54 Dose: 600 mg Documented By: Admin: 08/08/22 19:52 Dose: 600 mg Documented By: Admin: 08/08/22 08:36 Dose: 600 mg Documented By: Admin: 08/07/22 19:55 Dose: 600 mg Documented By: Heparin Sodium (Porcine) (Heparin Sod 5,000 Unit/0.5 Ml Vial) 5,000 units SQ Q12 DENISE Stop: 08/29/22 22:12 Last Admin: 08/10/22 08:50 Dose: Not Given Documented By: Admin: 08/09/22 19:39 Dose: Not Given Documented By: Admin: 08/09/22 08:54 Dose: Not Given Documented By: Admin: 08/08/22 19:52 Dose: Not Given Documented By: Admin: 08/08/22 08:37 Dose: Not Given Documented By: Admin: 08/07/22 19:55 Dose: Not Given Documented By: Admin: 08/07/22 09:24 Dose: Not Given Documented By: Admin: 08/06/22 20:50 Dose: Not Given Documented By: Admin: 08/06/22 08:47 Dose: Not Given Documented By: Admin: 08/05/22 20:52 Dose: Not Given Documented By: Admin: 08/05/22 08:42 Dose: 5,000 units Documented By: Admin: 08/04/22 19:41 Dose: 5,000 units Documented By: Admin: 08/04/22 08:29 Dose: 5,000 units Documented By: Admin: 08/03/22 20:43 Dose: Not Given Documented By: Admin: 08/03/22 08:09 Dose: 5,000 units Documented By: Admin: 08/02/22 21:51 Dose: Not Given Documented By: Admin: 08/02/22 08:12 Dose: 5,000 units Documented By: Admin: 08/01/22 22:17 Dose: Not Given Documented By: Admin: 08/01/22 08:33 Dose: Not Given Documented By: Admin: 07/31/22 19:36 Dose: Not Given Documented By: Admin: 07/31/22 08:46 Dose: Not Given Documented By: Admin: 07/30/22 23:53 Dose: 5,000 units Documented By: GCB Hydrochlorothiazide (Hydrochlorothiazide 25 Mg Tab) 25 mg PO QAM [facility] Stop: 09/04/22 08:59 Last Admin: 08/10/22 08:49 Dose: 25 mg Documented By: Admin: 08/09/22 08:54 Dose: 25 mg Documented By: Admin: 08/08/22 08:36 Dose: 25 mg Documented By: Admin: 08/07/22 09:23 Dose: 25 mg Documented By: RLCaesar Admin: 08/06/22 08:46 Dose: 25 mg Documented By: Admin: 08/05/22 08:42 Dose: 25 mg Documented By: MARVIN Coding Level of Care Code 74428 U Intl Hosp Care Lvl 2 Diagnoses Age-related cognitive decline R41.81
--- NOTE | 2022-08-10 16:14 | Hospitalist Progress Note ---
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 - Found to have fracture of the greater trochanter of the right femur, following a fall at home - Ortho consulted, they recommend non-operative hip fx based on imaging, partial weight-bearing using a flatfoot and approximately 20 to 25 pounds of pressure on the right leg, using a walker. - PT/OT ordered - SNF when accepted if possible. She does not want to go. We will need to assess capacity in the hospital as and daughter feel she is not safe to be home and cannot protect herself. (2) Age-related cognitive decline: Plan: Have spoken with both and daughter. Both report that she is impulsive and has emotional dysregulation. Both have done many things to improve safety in the home, and she has actively worked against them. (eg ignoring an installed stair lift, removing night-lights in the hallway). Some elements of even being aggressive toward the at times. However, psychiatry saw her on 08/10 and also felt exacerbates the issue by taking things to his room and locking the door on her. Some elements of possible financial disagreements as well as marital issues which spill into conflict. - Conservative measures including frequent re-orientation, encourage good day/night cycles. - Per psychiatry, she is capable of medical decision-making. As such, will allow her to leave of her own volition despite it being against medical advice which recommends SNF for her. (3) Hypertension: Plan: Hypertensive crisis on admission, with BP above 200 systolic. Treated with IV labetalol and hydralazine. BP today is 135/75. - Continue amlodipine & HCTZ (4) Malnutrition: Plan: BMI 17 - Will continue nutritional supplements (5) Fall: Plan: Mechanical in nature with patient hitting corner of table as she backed up. No concern for syncope or cardiac cause. - PT/OT as above Plan DVT ppx: Heparin 5,000 units SQ Q12h Admission and Anticipated Discharge Date Admission Date: July 30, 2022 Subjective More upset today because of the psychiatry team visiting her Wants to go home. Reports no fevers/chills, chest pain, shortness of breath, abdominal pain, nausea, or vomiting. Physical Exam Constitutional: WD/WN, vitals as above Eyes: EOM intact bilaterally; no conjunctival abnormality ENMT: external ear and nose normal, oropharynx normal Neck: trachea midline, no thyromegaly normal visual inspection Respiratory: normal respiratory effort, lungs clear to auscultation no respiratory distress Cardiovascular: RRR, no murmur, no edema Gastrointestinal (Abdomen): Inspection/Auscultation: abdomen normal to inspec tion; abdomen not distended Musculoskeletal: no cyanosis or clubbing, extremities motor strength 5/5 Skin: no rashes, warm and dry Neurologic: moves all extremities and awake Psychiatric: Orientation: alert, oriented to person and cooperative Affect: + anxious affect Results & Data Results & Data ([facility]) Vital Signs (Past 12 Hours) Vital Signs Temp Pulse Resp BP Pulse Ox O2 Del Method 08/10/22 15:46 36.5 C 81 14 133/71 97 Room Air 08/10/22 08:31 36.5 C 71 14 130/66 96 Room Air PG Care Time/CCT Total # of Minutes Spent Total Time Spent with Patient: Total time spent is greater than 50% in coordination of care (as documented) at patient's floor/unit and/or counseling patient: Coding Level of Care Code 55793 Subseq Hosp Care Lvl 2 Diagnoses Fracture of greater trochanter of right femur S72.111A Age-related cognitive decline R41.81 Hypertension I10 Malnutrition E46 Fall W19.XXXA
[2022-08-11] MEDS ORDERED: POTASSIUM CHLORIDE CRTAB 20 MEQ TABCR PO STA (08:01)
[2022-08-11] MEDS: amLODIPine BESYLATE 5 MG TAB PO SCH (08:12)
[2022-08-11] MEDS: HEPARIN SOD 5,000 UNIT/0.5 ML VIAL SQ SCH ×2 (08:12→08:19)
[2022-08-11] MEDS: guaiFENesin 600 MG TABCR PO SCH (08:12)
[2022-08-11] MEDS: hydroCHLOROthiazide 25 MG TAB PO SCH (08:12)
[2022-08-11 09:12] LABS: BUN Creatinine Ratio 37.4 (10-20); Calcium 9.5 mg/dl (8.5-10.1); Creatinine Clr Calc Pharmacy 35.1 ml/min; Est GFR (African American) 67.1 ml/min; Est GFR (Non-African American) 57.9 ml/min; Potassium 3.3 mmol/L (3.5-5.1)
--- NOTE | 2022-08-11 13:01 | Discharge Summary ---
Date of Service August 11, 2022 Admission HPI Per Admitting Provider 82 yo female PMHx HTN (not on medication), recurrent falls, s/p R hip hemiarthroplasty, age related cognitive decline, ?personality disorder presents with a recent fall. Earlier this afternoon patient was in her foyer and was in an argument with her . She states that she made a sudden movement towards her which frightened her and caused her to trip/fall on a stool behind her. She fell onto her R hip but denies being in much pain at the time. Her was worried for a fracture given her extensive fall history so came to the ER for further evaluation. She denies any hip pain at the moment as she is seated in wheelchair. Denies hip pain, chest pain, sob, abd pain, N/V/D, bruising, numbness/tingling down extremities. I personally spoke with the patient's daughter (she is an orthopedic surgeon) zoya cruz said that Fatimah has an extensive history of personality disorder along with age related cognitive decline with episodes of delirium. Daughter says that Fatimah can become very violent at times and is very against having help from others which includes having any home health or going to any assisted/nursing facilities. Prior to last year Fatimah was living with her daughter for the last decade however patient got upset with daughter no longer wanted to live with her which caused her to come back to [place] to live with her who is been taking care of her since. Daughter states that the has really been trying to help Fatimah and is not concerned for abuse at home as Fatimah may imply at times. Of note her current living situation does include a stair lift and railings to help patient ambulate however patient does refuse to use these. Otherwise she does ambulate on her own without the use of any assistive devices. Principal Diagnosis Fracture of right greater trochanter of femur Discharge Exam Constitutional WD/WN, vitals as above Eyes EOM intact bilaterally; no conjunctival abnormality ENMT external ear and nose normal, oropharynx normal Neck trachea midline, no thyromegaly normal visual inspection Respiratory normal respiratory effort, lungs clear to auscultation no respiratory distress Cardiovascular RRR, no murmur, no edema Gastrointestinal (Abdomen) Inspection/Auscultation: abdomen normal to inspection; abdomen not distended Musculoskeletal no cyanosis or clubbing, extremities motor strength 5/5 Skin no rashes, warm and dry Neurologic moves all extremities and awake Psychiatric Orientation: alert, oriented to person and cooperative Discharge Data Allergies Allergy/AdvReac Type Severity Reaction Status Date / Time acetaminophen [From Tylenol] AdvReac Gastrointestinal Verified 07/30/22 20:33 Upset Consultations 07/30/22 20:09 ED Decision to Admit Stat 08/10/22 10:17 Consult Psychiatry Routine Hospital Course (1) Fracture of greater trochanter of right femur: 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 - Found to have fracture of the greater trochanter of the right femur, following a fall at home - Ortho consulted, they recommend non-operative hip fx based on imaging, partial weight-bearing using a flatfoot and approximately 20 to 25 pounds of pressure on the right leg, using a walker. - PT/OT ordered - SNF recommended, but patient adamant that she did not want to go. She was able to make this decision and was discharged home with home health. (see below) (2) Age-related cognitive decline: Have spoken with both and daughter. Both report that she is impulsive and has emotional dysregulation. Both have done many things to improve safety in the home, and she has actively worked against them. (eg ignoring an installed stair lift, removing night-lights in the hallway). Some elements of even being aggressive toward the at times. However, psychiatry saw her on 08/10 and also felt exacerbates the issue by taking things to his room and locking the door on her. Some elements of possible financial disagreements as well as marital issues which spill into conflict. - Conservative measures including frequent re-orientation, encourage good day/night cycles. - Per psychiatry, she is capable of medical decision-making. As such, will allow her to leave of her own volition despite it being against medical advice which recommends SNF for her. (3) Hypertension: Hypertensive crisis on admission, with BP above 200 systolic. Treated with IV labetalol and hydralazine. BP today is 145/75. - Continue amlodipine & HCTZ (4) Malnutrition: BMI 17 - Will continue nutritional supplements (5) Fall: Mechanical in nature with patient hitting corner of table as she backed up. No concern for syncope or cardiac cause. - PT/OT as above Plan DVT ppx: Heparin 5,000 units SQ Q12h Total Time Total Time Spent Total Time Spent (In Minutes): 60 Discharge Plan Discharge Items Patient Disposition: Home - Home Health Services Reason For Visit: FALL Discharge Diagnosis: Fall, right greater trochanteric fracture Condition on Discharge: Good Activity: Resume your previous activity Weightbearing: Right toe touch Weightbearing Comment: 20 lbs limit on right leg Non-emergency contact: Primary Care Provider and Surgeon Call non-emergency contact if: your symptoms worsen Follow-up/Referrals: Mina Byrne MD [Primary Care Provider] - Oswaldo Cramer MD [Physician] - (Please see Dr. Cramer next week in the office.) Diet: Regular Addtl Attending Provider Instructions: Ms. Jacobo, Vinny were admitted to the hospital after a fall with a broken greater trochanter of the right femur. Fortunately, you did not need surgery. You can go home now, but MUST use a walker because you can only put 20 lbs of pressure on the right leg. The physical therapy team recommended you go to a rehab or correction facility, but you do not want to do that. The team at [facility] feel you can make your own medical decisions, and we are arranging home health for you. Please see Dr. Oswaldo Cramer in the office this coming week. Pending Studies at Discharge: No Stand-Alone Forms: My [facility], Smoking Cessation Medications and DC Order Prescriptions: Continued ferrous sulfate 325 mg (65 mg iron) tablet,delayed release (DR/EC) 325 mg PO DAILY Qty: 30 0RF mecobalamin (vitamin B12) 1,000 mcg tablet,disintegrating 1,000 mcg sublingual DAILY Qty: 30 0RF Rx Instructions: place tablet under tongue and allow to dissolve for at least30 secs before swallowing cholecalciferol (vitamin D3) 25 mcg (1,000 unit) capsule 25 mcg PO DAILY Qty: 30 0RF aspirin [Adult Low Dose Aspirin] 81 mg tablet,delayed release (DR/EC) 81 mg PO BID Discharge Orders: Discharge Order (Routine); Ordered 08/11/22 Ordered By: Cameron Pool Admission Data Admit Date/Time: 07/30/22 21:02 Attending Provider: Cameron Pool Admit Provider: Rachid Chan Primary Care Provider: Mina Byrne V. Other Providers: Manuel Siddiqui ; [facility] ; Ary Camara at [place] ; Rachel Espinal ; Nisha Whitaker Other Interventions: Discharge Summary Assessment (RN) Last Done: 08/11/22 10:20 Coding Level of Care Code D/C DAY MANAGEMENT >30 MINS Diagnoses Fracture of greater trochanter of right femur S72.111A Age-related cognitive decline R41.81 Hypertension I10 Malnutrition E46 Fall W19.XXXA
== END 2022-08-11 11:27 | disposition home health service (06) | DRG 543 ==
LOC: ED 17:10 → 3N 21:02 → SUATTDRO 21:02 → 3N 21:52

== ENCOUNTER 2024-06-18 11:33 | Inpatient (IN) ==
--- NOTE | 2024-06-18 11:35 | Emergency Department Note ---
Impression & Plan Altered mental status, Hypertension ED Provider Note NAME: JUAN CHAVEZ AGE: 84 SEX: F : 1940 ARRIVES VIA: Ambulance INFORMANT: Patient, EMS report ED PROVIDER(S): Vijay Bruno MD CHIEF COMPLAINT: Confusion MEDICAL DECISION MAKING: Patient presented due to concerns for the above. Patient did have some scattered speech but is awake alert and follows commands. IV was established and blood work was obtained along with CT head. Patient's blood work is unremarkable. Urinalysis pending. The patient did have elevated blood pressure at the time of presentation was given labetalol 10 mg IV. Per review of the patient's medication list not on any other medications at this time. Case management also did report that patient may have reported some suicidal ideation. Patient unsafe to go home this time. 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 The patient was up and ambulatory and did not have any walking difficulty NPH less likely and this was discussed with the admitting hospitalist. I did speak with medical hospital service ISABEL Haas PA-C and Dr. Orellana. Patient was admitted to the medicine service. Of note I did reach out and left a voicemail to the daughter to let her know that the patient was here in the emergency department but did not reach her but only left a voicemail stating that I was trying to get a hold of the patient's daughter. Discussion w/ other healthcare providers: ED case management ISABEL Haas PA-C and Dr. Orellana inpatient medicine service Prior /Outside records reviewed: None Differential diagnosis: Infection, dehydration, metabolic abnormality, hypo/hyperglycemia, electrolyte imbalance, anemia, UTI, pneumonia, thyroid dysfunction among others were considered. Diagnostics, as interpreted by me: ECG: Normal sinus rhythm, rate of 71, normal intervals, normal axis no ST elevations or T WI. Cardiac monitoring: An order was placed for continuous cardiac monitoring. The monitor shows a rate of 73 with sinus rhythm. Patient was placed on pulse oximetry Medical decision rules: None Imaging studies: I informally interpreted the patient's Chest x-ray does not show obvious pneumonia or pneumothorax with formal report to follow. HPI: Patient presents due to concern for possible confusion. Police did present to the house and there was some concern about her mental state and thus presented here for evaluation treatment. The patient reports that she may have had a recent spider bite to the left third digit. Patient denies any chest pain shortness of breath no nausea vomiting or diarrhea. Patient states that she had applied a salve and the seem to improve the spider bite symptoms and states that initially she thought she was walking to her home and she felt something on her back reached behind her and that is when she sustained a state of spider bite. Patient states it was dark when this occurred and was unsure as whether or not it was a concerning spider. Patient also reports that her was not at home and is currently with his "boyfriend" in [place]. Patient also does report that her daughter is an orthopedic surgeon in [place]. Additional history was obtained via case management after calling the reports the patient has had increasingly worsening cognitive decline with some concern about whether or not the patient could go home. not currently at home. Reported that he does leave instructions about how to do things around the house. No current and home care. PAST MEDICAL HISTORY: See Below PAST SURGICAL HISTORY: See Below SOCIAL HISTORY: See Below HOME MEDICATIONS: See Below ALLERGIES: See Below VITALS: See Below PHYSICAL EXAMINATION: GENERAL: NAD, non-toxic. EYE EXAM: Normal conjunctiva. PERRL, no anisocoria and EOM's grossly intact w/o pain. OROPHARYNX: Moist mucus membranes, grossly normal dentition. NECK: Trachea midline, no stridor. Supple, no nuchal rigidity, no adenopathy, non-tender. No signs of meningismus. FROM of the neck with good chin to chest and neck extension. LUNGS: Clear to auscultation. Normal chest wall mechanics. HEART: NSR, no MRG. ABDOMEN: Abdomen soft, non-tender, no masses, no rebound or guarding. BACK: No CVA TTP. SKIN: No rashes and no bruising. UPPER EXTREMITIES: Upper extremities are grossly normal. LOWER EXTREMITIES: Grossly normal, no edema. NEURO EXAM: Tangential speech and scattered thoughts, oriented to person place and time, awake alert and follows basic commands, cranial nerves II-XII grossly intact, normal speech, moves all 4 extremities. Good [id number], no drift. Past Med/Surg History Problem List (Updated 06/21/24 @ 11:38 by Vijay Bruno MD) Altered mental status (Acute) History of hip fracture (07/30/22) Small nondisplaced fracture at the tip of the right greater trochanter Malnutrition Fall (Acute) Hypertension (Acute) Frequent falls Cataract of both eyes Health care maintenance Vitamin D deficiency disease Anemia Vitamin B12 deficiency Age-related cognitive decline Osteoporosis Herpes labialis Medical History Closed intertrochanteric fracture of left hip Encounter for pre-operative examination HTN (hypertension) NO MEDS/PT DENIES Surgical History History of cataract surgery LEFT History of tonsillectomy History of wisdom tooth extraction History of surgery on right wrist History of ankle surgery Rt History of colonoscopy Status post hip replacement Rt Partial Family History Mother Breast cancer Brother Stroke Father Bladder cancer Other No family history of adverse response to anesthesia Denies family history of Ovarian cancer Prostate cancer Myocardial infarction Colorectal cancer Social History Smoking Status: Never smoker Second Hand Exposure: No; Do You Dip or Chew Tobacco: No; Hx Alcohol Use: No Hx Substance Use: No Preferred Language: Sudanese Communication Ability: Effective Visual Impairment: Limited Hearing Ability: Normal Grounds And Nursery Specialist Required: No Beliefs That Will Affect Care: None marital status: Current Living Situation: Spouse Current Living Situation Comment: Reports arguing with , but feels safe at this time current occupational status: retired How many Children do You have: 1 Feels Safe at Home: Yes Safety Concerns: Feels Safe At This Time Childhood Exposure to Second-Hand Smoke: No Diet: regular caffeine: Yes during the past year weight has: remained stable Dental Care, Regularly: Yes Physical Activity Frequency: Daily Seatbelt Use: always Sunscreen Use: Yes Assistive Devices: Cane and Walker Assistive Devices Comment: patient states she only uses her walker "every now and then". Allergies Allergies Allergy/AdvReac Type Severity Reaction Status Date / Time acetaminophen [From Tylenol] AdvReac Gastrointestinal Verified 11/26/23 09:51 Upset Home Meds Home Medications Medication Instructions Recorded Confirmed multivitamin with minerals-folic 1 tab PO DAILY 11/26/23 06/18/24 acid 80 mcg chewable tablet (Centrum Adult 50 Plus) Results & Data (ED) Home Medications Current Medication List: was personally reviewed by me Laboratory Data Attestation: I reviewed the patient's lab results. 06/20/24 08:14 06/20/24 08:14 Lab Results 06/18/24 Range/Units 12:07 WBC 7.80 (4.8-10.8) K/ul RBC 4.85 (4.20-5.40) M/uL Hgb 14.9 (12.0-16.0) g/dl Hct 45.1 (37.0-47.0) % MCV 93.0 (80.0-100.0) fL MCH 30.7 (25.0-34.0) pg MCHC 33.0 (32.0-36.0) g/dL RDW Std Deviation 46.4 H (36.4-46.3) fL RDW Coeff of James 13.6 (11.5-14.5) % Plt Count 366 (130-400) K/uL MPV 9.9 (9.4-12.4) fL Immature Gran % (Auto) 0.3 % Neut % (Auto) 49.4 % Lymph % (Auto) 32.4 % Sanders % (Auto) 10.4 % Eos % (Auto) 6.3 % Baso % (Auto) 1.2 % Neut # (Auto) 3.86 (1.40-6.50) K/uL Lymph # (Auto) 2.53 (1.20-3.40) K/uL Sanders # (Auto) 0.81 H (0.11-0.59) K/uL Eos # (Auto) 0.49 (0.00-0.50) K/uL Baso # (Auto) 0.09 (0.00-0.20) K/uL Immature Gran # (Auto) 0.02 (0.01-0.20) K/uL Sodium 143 (136-145) mmol/L Potassium 4.0 (3.5-5.1) mmol/L Chloride 110 H (98-107) mmol/L Carbon Dioxide 27 (21-32) mmol/L Anion Gap 6 (3-11) BUN 22 (6-23) mg/dl Creatinine 0.93 (0.6-1.2) mg/dl Est Cr Clr Drug Dosing 31.2 ml/min eGFR 59.86 BUN/Creatinine Ratio 23.7 H (10-20) Glucose 98 (70-99(Fasting)) mg/dl Calcium 9.9 (8.6-10.3) mg/dl Magnesium 2.1 (1.7-2.4) mg/dl Total Bilirubin 0.5 (0.2-1.0) mg/dl AST 17 (13-39) U/L ALT 12 (7-52) U/L Alkaline Phosphatase 64 (34-104) U/L Total Protein 7.6 (6.0-8.3) gm/dl Albumin 4.4 (3.4-5.0) gm/dl Globulin 3.2 (2.5-4.0) gm/dl Albumin/Globulin Ratio 1.4 (0.9-2) TSH 1.138 (0.300-4.500) uIu/ml Administered Medications Amlodipine Besylate (Amlodipine Besylate 5 Mg Tab) 5 mg PO QAM [facility] Stop: 07/19/24 08:59 Last Admin: 06/21/24 08:17 Dose: Not Given Documented By: Admin: 06/20/24 08:56 Dose: 5 mg Documented By: Admin: 06/19/24 09:15 Dose: 5 mg Documented By: BLANCA Olanzapine (Olanzapine 10 Mg/2.1 Ml Sdv) 2.5 mg IM ONE PRN PRN Reason: Behavioral emergency Stop: 07/19/24 16:19 Last Admin: 06/20/24 00:25 Dose: 2.5 mg Documented By: SRW Discontinued Medications Amlodipine Besylate (Amlodipine Besylate 5 Mg Tab) 5 mg PO NOW ONE Stop: 06/18/24 16:21 Last Admin: 06/18/24 16:27 Dose: 5 mg Documented By: CRISTINA Haloperidol Lactate (Haloperidol Lactate 5 Mg/Ml 1 Ml Vial) 5 mg IM Q6H PRN PRN Reason: risk of harm to self/others Stop: 07/18/24 16:16 Last Admin: 06/18/24 18:35 Dose: 5 mg Documented By: NRB Labetalol HCl (Labetalol Hcl Iv 5 Mg/Ml 20ml) 10 mg IV NOW STA Stop: 06/18/24 14:41 Last Admin: 06/18/24 15:01 Dose: 10 mg Documented By: NMS Labetalol HCl (Labetalol Hcl Iv 5 Mg/Ml 20ml) 5 mg IV NOW STA Stop: 06/18/24 18:25 Last Admin: 06/18/24 18:36 Dose: 5 mg Documented By: NRB Imaging Data Radiologist's Impression: Chest X-Ray 06/18/24 11:50 SINGLE VIEW CHEST CLINICAL HISTORY: Generalized weakness. FINDINGS: An AP, portable, upright chest radiograph is compared to study dated 05/20/2022. The cardiomediastinal silhouette is top normal for projection. Chronic interstitial thickening similar to previous. There is bibasilar scarring/atelectasis. No airspace consolidation or large pleural effusion is identified. No pneumothorax is seen. The skeletal structures are osteopenic. There are chronic/healed left-sided rib fractures. Compression deformities are suspected in the thoracic region. IMPRESSION: No active disease in the chest. ACT 112: Negative or not required by law. Electronically signed by: Gordon Martinez M.D. 06/18/2024 12:[address] 06/18/24 11:50 CT OF THE HEAD WITHOUT CONTRAST CLINICAL HISTORY: confusion COMPARISON STUDY: No previous studies for comparison. CT DOSE: 625.8 mGy.cm TECHNIQUE: Helical axial images of the head were obtained without IV contrast. Automated exposure control was utilized for the study. A dose lowering technique was utilized adhering to the principles of ALARA. FINDINGS: No acute intracranial hemorrhage, midline shift or mass effect is present. There is moderate dilatation of the lateral and third ventricles. There is mild dilatation of the fourth ventricle. White matter hypodensity suggests small vessel disease. The basal cisterns are patent. No extra-axial collections are present. There are no findings to suggest acute dural sinus thrombosis or acute territorial infarct. No significant calvarial abnormalities are present. Visualized portions of the sinuses and mastoid air cells are clear. IMPRESSION: 1. No acute intracranial findings. 2. Ventricular dilatation, as above. 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 Normal pressure hydrocephalus is within the differential but considered less likely. ACT 112: Negative or not required by law. Electronically signed by: Milan Salas M.D. 06/18/2024 12:53 PM Discharge Plan Visit Data Chief Complaint: Altered Mental Status Stated Complaint: CONFUSION ED Provider: Vijay Bruno Discharge Problem: Altered mental status, Hypertension Patient Disposition: Admitted As Inpatient Discharge Instructions Interventions: ED Discharge Assessment Last Done: 06/18/24 21:21 Discharge Problem: Altered mental status Qualifiers: Altered mental status type: unspecified Qualified Code(s): R41.82 - Altered mental status, unspecified Hypertension Qualifiers: Hypertension type: unspecified Qualified Code(s): I10 - Essential (primary) hypertension
--- NOTE | 2024-06-18 12:07 | XRay Report ---
SINGLE VIEW CHEST CLINICAL HISTORY: Generalized weakness. FINDINGS: An AP, portable, upright chest radiograph is compared to study dated 05/20/2022. The cardiom ediastinal silhouette is top normal for projection. Chronic interstitial thickening similar to previo us. There is bibasilar scarring/atelectasis. No airspace consolidation or large pleural effusion is i dentified. No pneumothorax is seen. The skeletal structures are osteopenic. There are chronic/healed left-sided rib fractures. Compression deformities are suspected in the thoracic region. IMPRESSION: No active disease in the chest. ACT 112: Negative or not required by law. Electronically signed by: Gordon Martinez M.D. 06/18/2024 12:05 PM
[2024-06-18 12:39] LABS: Basophils # (auto) 0.09 K/uL (0.00-0.20); Basophils % (auto) 1.2 %; Eosinophils # (auto) 0.49 K/uL (0.00-0.50); Eosinophils % (auto) 6.3 %; Hematocrit (blood only) 45.1 % (37.0-47.0); Hemoglobin 14.9 g/dl (12.0-16.0); Immature Granulocytes # (auto) 0.02 K/uL (0.01-0.20); Immature Granulocytes % (auto) 0.3 %; Lymphocytes # (auto) 2.53 K/uL (1.20-3.40); Lymphocytes % (auto) 32.4 %; Mean Corpuscular Hemoglobin 30.7 pg (25.0-34.0); Mean Platelet Volume 9.9 fL (9.4-12.4); Monocytes # (auto) 0.81 K/uL (0.11-0.59); Monocytes % (auto) 10.4 %; Neutrophils # (auto) 3.86 K/uL (1.40-6.50); Neutrophils % (auto) 49.4 %; Platelet Count 366 K/uL (130-400); RDW Coefficient of Variation 13.6 % (11.5-14.5); RDW Standard Deviation 46.4 fL (36.4-46.3); Red Blood Count 4.85 M/uL (4.20-5.40)
--- NOTE | 2024-06-18 12:54 | CT Scan Report ---
CT OF THE HEAD WITHOUT CONTRAST CLINICAL HISTORY: confusion COMPARISON STUDY: No previous studies for comparison. CT DOSE: 625.8 mGy.cm TECHNIQUE: Helical axial images of the head were obtained without IV contrast. Automated exposure con trol was utilized for the study. A dose lowering technique was utilized adhering to the principles o f ALARA. FINDINGS: No acute intracranial hemorrhage, midline shift or mass effect is present. There is moderat e dilatation of the lateral and third ventricles. There is mild dilatation of the fourth ventricle. W anne matter hypodensity suggests small vessel disease. The basal cisterns are patent. No extra-axial collections are present. There are no findings to suggest acute dural sinus thrombosis or acute dequan torial infarct. No significant calvarial abnormalities are present. Visualized portions of the sinuse s and mastoid air cells are clear. IMPRESSION: 1. No acute intracranial findings. 2. Ventricular dilatation, as above. 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 Normal pressure hydroceph alus is within the differential but considered less likely. ACT 112: Negative or not required by law. Electronically signed by: Milan Salas M.D. 06/18/2024 12:53 PM
[2024-06-18 12:55] LABS: Albumin Globulin Ratio 1.4 (0.9-2); Albumin Level 4.4 gm/dl (3.4-5.0); BUN Creatinine Ratio 23.7 (10-20); Bilirubin,Total 0.5 mg/dl (0.2-1.0); Calcium 9.9 mg/dl (8.6-10.3); Creatinine Clr Calc Pharmacy 31.2 ml/min; Globulin 3.2 gm/dl (2.5-4.0); Magnesium 2.1 mg/dl (1.7-2.4); Total Protein 7.6 gm/dl (6.0-8.3)
[2024-06-18 13:09] LABS: Thyroid Stimulating Hormone 1.138 uIu/ml (0.300-4.500)
--- NOTE | 2024-06-18 14:58 | History & Physical Report ---
Date of Service June 18, 2024 Assessment & Plan (1) Altered mental status: Plan: Patient's called PD on the morning of 06/18 after a phone call between her and the patient became aggressive and then expressive passive SI She reportedly said "you'll have to live with what I do because of you" Per review of prior admission in 07/2022, patient does have "extensive history of personality disorder" and "age-related cognitive decline with episodes of delirium" Patient has reportedly become violent in the past and is very against having home health or going to a nursing facility reports that, while she always becomes upset/"hysterical" whenever he leaves the house, patient has never expressed passive suicidal ideations before Head CT revealed ventricular dilation likely due to central atrophy; NPH in the differential Patient does exhibit a stable gait at this time assessed on clinical exam Behavioral health liaison consulted One-to-one until cleared by behavioral health Safe tradimitri Patient denies SI, thoughts of self-harm, or thoughts of harming others at time of admission Psychiatry consult appreciated Case management consult for discharge planning/home health/potential placement A.m. CBC, BMP (2) Hypertension: Plan: Elevated BP up to 223/102 in the ED Labetalol 10 mg IV x 1 Patient is not on any other antihypertensives; she attributes this current episode to white-coat syndrome Will start patient on amlodipine 5 mg p.o. daily Additional labetalol 5 mg IV q6h as needed for SBP>220 or DBP>120 Discussed with case management; okay to go to MedSurg telemetry (3) Age-related cognitive decline: (4) Cataract of both eyes: Plan Disposition: Admit to MedSurg telemetry Full code Regular diet (safe tray) VTE PPx: Teds History of Present Illness Chief Complaint: Altered mental status Primary Care Provider: Mina Byrne MD Fatimah is an 84yo female with PMH of age-related cognitive decline, vitamin B12 deficiency, cataracts in both eyes, HTN, frequent falls, malnutrition, and osteoporosis. She presented on 06/18 due to confusion. Police Department called after patient's significant other called this morning due to concerns that patient might harm herself. She believes that her was cheating on her, and reportedly said I hope you can "live with what [I] intend to do". When speaking with patient at bedside, she appears to have rambling speech and incoherent thought processes. She reports that she found out her was treviño this past year. When asked why she is in the hospital, she obfuscate's between several stories. She believes that a spider bit her on her finger twice, but is unable to explain why she is in the hospital. She does note that her is in [place]. When asked about self-harm, she reports that she has no thoughts of SI, harming herself, or harming others (including her ). Patient only takes vitamins on a daily basis. No other medications. She denies all symptoms at this time. When asked if she feels dizzy or lightheaded on her feet, she says that she sometimes feels like her legs are unsteady due to history of broken knees x 2 and broken ankles x 2. She denies any recent falls. She denies headache, dizziness, or lightheadedness at this time. She does report that she has had poor vision since first grade. She reports she does not use ambulatory assist devices at home such as a walker or a cane. She is alert and oriented to name//month/location, but cannot explain why she is in the hospital. Patient is hypertensive at 204/114 at time of admission; vitals otherwise stable. ED course: Labetalol 10mg IV While patient is a poor historian at this time, she denies the following: Recent fever, chills, night sweats, dizziness, lightheadedness, headaches, fainting, falls, chest pain, chest palpitations, SOB, abdominal pain, N/V/D, burning with urination, blood in the urine or stool, or changes in urinary/bowel habits. Spoke on the phone with patient's (Gene). reports that he told her he was leaving for [place] this morning, and she said "do not come back". He then received a phone call on the road via [employer], and the patient was "hysterical" and screaming on the phone. He was unable to understand what she was saying, she then hung up. When she called back again, she was somber, and reportedly said things such as you are "responsible for what happens to me", and that "if this is living, it is not worth it". reports that this happens every time he goes away; however, she has never talked about passive suicidal lesions in such a "direct way" before. He does not believe there is been an acute change in her behavior/mood, but does report that she has "no control over her emotions". He feels that she is a danger to herself. He also feels that he is being verbally abused daily; denies physical abuse at this time. He has been living with her for the past 4 years. Prior to that, the patient was living with her daughter for 15 years, but eventually had to move out (Note: it is unclear at this time if patient's relationship with daughter is somewhat estranged; would double check with before reaching out). The patient has no official diagnosis of mood, bipolar, or borderline personality disorder. She has never been in to see a psychiatrist. Per , she was la st seen by her PCP 3 years ago, but has canceled all appointments since. She is not on medications at baseline. In the past, she has refused home health or placement. Patient's reports that there is no paperwork to the fact of a power of x ray equipment mechanic or advanced directive. He is unsure about CODE STATUS or medical proxy in an emergency situation. Allergies Allergy/AdvReac Type Severity Reaction Status Date / Time acetaminophen [From Tylenol] AdvReac Gastrointestinal Verified 11/26/23 09:51 Upset Home Medications Medication Instructions Recorded Confirmed Type multivitamin with minerals-folic 1 tab PO DAILY 11/26/23 06/18/24 History acid 80 mcg chewable tablet (Centrum Adult 50 Plus) Past Med/Surg History Problem List (Updated 06/18/24 @ 14:56 by Denis Haas PA-C) Altered mental status History of hip fracture (07/30/22) Small nondisplaced fracture at the tip of the right greater trochanter Malnutrition Fall (Acute) Hypertension (Acute) Frequent falls Cataract of both eyes Health care maintenance Vitamin D deficiency disease Anemia Vitamin B12 deficiency Age-related cognitive decline Osteoporosis Herpes labialis Medical History Closed intertrochanteric fracture of left hip Encounter for pre-operative examination HTN (hypertension) NO MEDS/PT DENIES Surgical History History of cataract surgery LEFT History of tonsillectomy History of wisdom tooth extraction History of surgery on right wrist History of ankle surgery Rt History of colonoscopy Status post hip replacement Rt Partial Family History Mother Breast cancer Brother Stroke Father Bladder cancer Other No family history of adverse response to anesthesia Denies family history of Ovarian cancer Prostate cancer Myocardial infarction Colorectal cancer Social History Smoking Status: Never smoker Second Hand Exposure: No; Do You Dip or Chew Tobacco: No; Hx Alcohol Use: No Hx Substance Use: No Preferred Language: Turkmen Communication Ability: Effective Visual Impairment: Limited Hearing Ability: Normal Government Operations Consultant Required: No Beliefs That Will Affect Care: None marital status: Current Living Situation: Spouse Current Living Situation Comment: Reports arguing with , but feels safe at this time current occupational status: retired How many Children do You have: 1 Feels Safe at Home: Yes Childhood Exposure to Second-Hand Smoke: No Diet: regular caffeine: Yes during the past year weight has: remained stable Dental Care, Regularly: Yes Physical Activity Frequency: Daily Seatbelt Use: always Sunscreen Use: Yes Assistive Devices: Cane, Walker and Wheelchair Review of Systems Review of Systems: See HPI above Physical Exam Physical Exam: General: no acute distress; non-toxic appearing; frail appearing; cooperative; SpO2 95% on RA HEENT: normocephalic, atraumatic; no scleral icterus; PERRLA; cataracts noted in both eyes; hearing intact Neck: supple; trachea midline Skin: warm, dry without signs of tenting; no cyanosis; no rashes, bruising, lesions, or erythema noted CV: chest wall NTP; RRR; S1/S2 normal; no murmurs/rubs/gallops; pulses intact and symmetric at radial, DP, and PT Lungs: no acute respiratory distress; symmetrical chest wall expansion; clear breath sounds across all lung pruitt w/o adventitious sounds; no wheezing ABD: Soft, NTP; BS present; no rebound/guarding; no distention MSK: no tics or fasciculations; no edema noted in the LEs b/l, nonerythematous; 5/5 donation specialist strength bilaterally; 5/5 strength in the lower extremities bilaterally when lifting legs from the bed supine Gait: Patient is able to stand at bedside and walk [id number] the room without significant gait instability; she can achieve this without ambulatory assist devices Neuro: A&Ox3, but not oriented to purpose in the hospital; incoherent thought processes and flight of ideas / rapidly shifting between topics; fluent speech; no slurred speech, facial droop, unilateral deficits sensation grossly intact in the LEs b/l Results & Data Results & Data Vital Signs (Past 12 Hours) Vital Signs Temp Pulse Pulse Resp BP BP Pulse Ox 06/18/24 14:19 73 16 204/114 H 95 06/18/24 14:03 77 16 97 06/18/24 14:00 223/102 H 06/18/24 13:54 77 21 96 06/18/24 13:29 69 16 175/113 H 97 06/18/24 13:28 175/113 H 06/18/24 13:27 68 17 96 06/18/24 13:06 79 18 96 06/18/24 12:24 72 20 96 06/18/24 12:16 71 06/18/24 11:50 95 06/18/24 11:48 76 17 94 06/18/24 11:38 197/110 H 06/18/24 11:28 36.9 C 77 17 197/110 H 95 O2 Del Method 06/18/24 14:19 06/18/24 14:03 06/18/24 14:00 06/18/24 13:54 06/18/24 13:29 Room Air 06/18/24 13:28 06/18/24 13:27 06/18/24 13:06 06/18/24 12:24 06/18/24 12:16 06/18/24 11:50 Room Air 06/18/24 11:48 06/18/24 11:38 06/18/24 11:28 Room Air Laboratory Results Abnormal lab results 06/18/24 Range/Units 12:07 RDW Std Deviation 46.4 H (36.4-46.3) fL Patrick # (Auto) 0.81 H (0.11-0.59) K/uL Chloride 110 H (98-107) mmol/L BUN/Creatinine Ratio 23.7 H (10-20) Diagnostic Findings Chest X-Ray 06/18/24 11:50 SINGLE VIEW CHEST CLINICAL HISTORY: Generalized weakness. FINDINGS: An AP, portable, upright chest radiograph is compared to study dated 05/20/2022. The cardiomediastinal silhouette is top normal for projection. Chronic interstitial thickening similar to previous. There is bibasilar scarring/atelectasis. No airspace consolidation or large pleural effusion is identified. No pneumothorax is seen. The skeletal structures are osteopenic. There are chronic/healed left-sided rib fractures. Compression deformities are suspected in the thoracic region. IMPRESSION: No active disease in the chest. ACT 112: Negative or not required by law. Electronically signed by: Gordon Martinez M.D. 06/18/2024 12:[address] 06/18/24 11:50 CT OF THE HEAD WITHOUT CONTRAST CLINICAL HISTORY: confusion COMPARISON STUDY: No previous studies for comparison. CT DOSE: 625.8 mGy.cm TECHNIQUE: Helical axial images of the head were obtained without IV contrast. Automated exposure control was utilized for the study. A dose lowering technique was utilized adhering to the principles of ALARA. FINDINGS: No acute intracranial hemorrhage, midline shift or mass effect is present. There is moderate dilatation of the lateral and third ventricles. There is mild dilatation of the fourth ventricle. White matter hypodensity suggests small vessel disease. The basal cisterns are patent. No extra-axial collections are present. There are no findings to suggest acute dural sinus thrombosis or acute territorial infarct. No significant calvarial abnormalities are present. Visualized portions of the sinuses and mastoid air cells are clear. IMPRESSION: 1. No acute intracranial findings. 2. Ventricular dilatation, as above. 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 Normal pressure hydrocephalus is within the differential but considered less likely. ACT 112: Negative or not required by law. Electronically signed by: Milan Salas M.D. 06/18/2024 12:53 PM ECG Additional Comments: ECG revealed NSR at 71 bpm; QTc 441 Code Status & VTE Plan Code Status Full code (confirmed by patient at bedside; discussed with and mentioned that she was a DNR/DNI in 2021; reports there is no paperwork to the fact of a living will or advanced directive) VTE Prophylaxis Plan VTE Prophylaxis will be ordered: Yes Supervising Physician Co-Signing Physician Notes Patient seen and examined, chart reviewed, case discussed with Denis Haas PA-C and I agree with the assessment and plan as above except as otherwise noted Labs and images reviewed Fatimah is an 84-year-old female with a history of cognitive decline, 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 On review of psychiatric consultation from 2021 patient with a history of agitated delirium, and has had narcissistic/emotional dissipation challenges wi th family in the past which were worsened by cognitive decline. She was evaluated in the ED by Keyshawn chicas in April. On day of admission patient was reportedly on the phone with her who was out of town and became very violent and angry, and was suspicious that her may have been cheating on her. Reportedly as part of that conversation patient had expressed "I hope he can live with what I intend to do ". On admitting evaluation she is oriented to name, place, and year but thought process is difficult to follow. Patient notes that she feels that her is treviño, and that "the news man "and her housecleaner had talked to her about it, and in that in the past her had hung up the phone after she had answered it which she found suspicious. Patient denies SI/HI, thought process is generally tangential. She reports she does not know why she is in the hospital, is not concerned about her blood pressure. Moves all extremities equally, donation specialist strength, elbow flexion, ankle dorsiflexion/plantarflexion are 5/5 bilaterally. No facial droop, tongue protrudes midline, no dysarthria or aphasia is noted. Given implied potential suicidal statements and nonlinear thought process with possible liaison and psychiatry have been consulted. Patient will be kept on a one-to-one at this time. Agree with above. PG Care Time/CCT Total # of Minutes Spent Total Time Spent with Patient: Total time spent is greater than 50% in coordination of care (as documented) at patient's floor/unit and/or counseling patient: [place] [address] INT INP/OBS CARE 3/75MIN Patient Type Established History Comprehensive Exam Comprehensive Medical Decision Making High Complexity Diagnoses Altered mental status R41.82 Hypertension I10 Hypertension type: unspecified Age-related cognitive decline R41.81 Cataract of both eyes H26.9 (2) Hypertension Hypertension type: unspecified Qualified Code(s): I10 - Essential (primary) hypertension
[2024-06-18] MEDS: LABETALOL HCL IV 5 MG/ML 20ML IV STA ×2 (15:01→18:36)
[2024-06-18] MEDS: amLODIPine BESYLATE 5 MG TAB PO ONE (16:27)
[2024-06-18 17:02] LABS: Appearance Urine Clear (Clear); Bilirubin Urine Negative (Negative); Blood Urine Negative (Negative); Color Urine Yellow; Glucose Urine UA Negative (Negative); Ketones Urine Negative (Negative); Leukocyte Esterase Urine Negative (Negative); Nitrite Urine Negative (Negative); Protein Urine Negative (Negative); Specific Gravity Urine 1.011 (1.000-1.030); Urobilinogen Urine Negative (Negative); pH Urine 8.5 (4.5-7.5)
[2024-06-18] MEDS: HALOPERIDOL LACTATE 5 MG/ML 1 ML VIAL IM PRN (18:35)
[2024-06-18] MEDS ORDERED: ONDANSETRON INJ 2 MG/ML 2 ML VIAL IV PRN (21:21)
[2024-06-18] MEDS ORDERED: ACETAMINOPHEN 325 MG TAB PO PRN (21:21)
--- NOTE | 2024-06-18 22:34 | Electrocardiogram Report ---
Test Reason : Blood Pressure : */* mmHG Vent. Rate : 71 BPM Atrial Rate : 71 BPM P-R Int : 122 ms QRS Dur : 82 ms QT Int : 406 ms P-R-T Axes : 79 34 39 degrees QTcB Int : 441 ms Normal sinus rhythm When compared with ECG of 29-Aug-2021 22:14, Nonspecific T wave abnormality no longer evident in Anterior leads Confirmed by Josue Quarles ([id number]) on 06/18/2024 10:34:06 PM Referred By: Confirmed By: Josue Quarles
[2024-06-19] MEDS ORDERED: LABETALOL HCL IV 5 MG/ML 20ML IV PRN (00:30)
[2024-06-19] MEDS: amLODIPine BESYLATE 5 MG TAB PO SCH (09:15)
[2024-06-19 09:32] LABS: Basophils # (auto) 0.07 K/uL (0.00-0.20); Basophils % (auto) 0.9 %; Eosinophils # (auto) 0.18 K/uL (0.00-0.50); Eosinophils % (auto) 2.4 %; Hematocrit (blood only) 42.5 % (37.0-47.0); Hemoglobin 14.2 g/dl (12.0-16.0); Immature Granulocytes # (auto) 0.03 K/uL (0.01-0.20); Immature Granulocytes % (auto) 0.4 %; Lymphocytes # (auto) 1.98 K/uL (1.20-3.40); Lymphocytes % (auto) 26.6 %; Mean Corpuscular Hemoglobin 30.9 pg (25.0-34.0); Mean Corpuscular Hgb Conc 33.4 g/dL (32.0-36.0); Mean Corpuscular Volume 92.4 fL (80.0-100.0); Mean Platelet Volume 9.8 fL (9.4-12.4); Monocytes # (auto) 0.79 K/uL (0.11-0.59); Monocytes % (auto) 10.6 %; Neutrophils % (auto) 59.1 %; Platelet Count 340 K/uL (130-400); RDW Coefficient of Variation 13.5 % (11.5-14.5); RDW Standard Deviation 45.9 fL (36.4-46.3); White Blood Count 7.45 K/ul (4.8-10.8)
[2024-06-19 09:50] LABS: BUN Creatinine Ratio 14.6 (10-20); Calcium 9.7 mg/dl (8.6-10.3); Creatinine Clr Calc Pharmacy 32.6 ml/min; Potassium 3.4 mmol/L (3.5-5.1)
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
[2024-06-19] MEDS ORDERED: hydrALAZINE HCL 20 MG/ML VIAL IV PRN (15:09)
--- NOTE | 2024-06-19 16:33 | Communication Note ---
Date of Service: June 19, 2024 Fatimah is seen at the bedside in conjunction withTere Zapata PA-C and reviewed with nursing staff and psychiatry. On afternoon reassessment Fatimah is oriented, and is able to express that she was brought into the hospital by police. This was following an argument on the phone with her who is out of town. Was seen by psych and does not have SI/HI, and is not appropriate for 302. On afternoon reassessment patient expresses a desire to go home, is able to recount events for the previous night, and expresses frustration with provider team for keep her in the hospital. She acknowledges that she has an elevated blood pressure, noting that she has had a high blood pressure at home as well but that she has been very stressed by being kept in the hospital against her will. She acknowledges the risk of stroke which could be life-threatening or fatal and that this risk is higher with elevated blood pressure; however does wish to leave AMA as she believes when she returns home if she is able to relax that her blood pressure will come down naturally. Discussed her case with her Kvng by phone. He notes during conversation that her current desire to avoid blood pressure medicine and be out of the hospital that this is consistent with prior decision making and notes that she has had antihypertensives prescribed in the past however prefers holistic treatments which she has sometimes read about and readers digest. Deferring blood pressure medication to avoid prescription medications even given risk of stroke is consistent with her previously expressed care goals. Patient reports that she does have a friend that could pick her up and bring her home. At time of assessment due to her hypertension and risk of stroke discussed that leaving the hospital with a blood pressure greater than 200 would be AGAINST MEDICAL ADVICE due to the risk of stroke with the potential for permanent disability, impairment, or . Patient acknowledges these risks, and given that she is oriented able to hold a conversation and accurately recount previous events and expresses treatment decisions consistent with previously expressed care decisions do feel that she is demonstrating capacity with respect to this decision, and should have her autonomy respected. I discussed with patient however that she would need to be able to have safe transport home and that 911 would not provide this service for her. She reports that she has a friend that could bring her home given that her is out of town. If her friend arrives to pick her up she may leave AGAINST MEDICAL ADVICE, in the meantime we will continue to care for her with current treatments and encouraged her to work with nursing staff for blood pressure checks and continue to encourage antihypertensive control of her blood pressure. While patient does express frustration with recent events, she is also cooperative at the bedside. Pharmacologic behavioral control is not indicated at time of assessment; if this were to become warranted olanzapine IM has been ordered consistent with recommendations from psych evaluation.
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
[2024-06-20] MEDS: OLANZapine 10 MG/2.1 ML SDV IM PRN (00:25)
[2024-06-20 09:32] LABS: BUN Creatinine Ratio 19.5 (10-20); Calcium 9.5 mg/dl (8.6-10.3); Creatinine Clr Calc Pharmacy 33.3 ml/min; Potassium 3.6 mmol/L (3.5-5.1)
[2024-06-20 09:43] LABS: Basophils # (auto) 0.09 K/uL (0.00-0.20); Eosinophils # (auto) 0.41 K/uL (0.00-0.50); Eosinophils % (auto) 4.6 %; Hematocrit (blood only) 43.5 % (37.0-47.0); Hemoglobin 14.7 g/dl (12.0-16.0); Immature Granulocytes # (auto) 0.02 K/uL (0.01-0.20); Immature Granulocytes % (auto) 0.2 %; Lymphocytes # (auto) 3.15 K/uL (1.20-3.40); Lymphocytes % (auto) 35.3 %; Mean Corpuscular Hemoglobin 31.1 pg (25.0-34.0); Mean Corpuscular Hgb Conc 33.8 g/dL (32.0-36.0); Mean Platelet Volume 10.4 fL (9.4-12.4); Monocytes # (auto) 0.93 K/uL (0.11-0.59); Monocytes % (auto) 10.4 %; Neutrophils # (auto) 4.32 K/uL (1.40-6.50); Neutrophils % (auto) 48.5 %; Platelet Count 371 K/uL (130-400); RDW Coefficient of Variation 13.9 % (11.5-14.5); RDW Standard Deviation 47.3 fL (36.4-46.3); Red Blood Count 4.73 M/uL (4.20-5.40); White Blood Count 8.92 K/ul (4.8-10.8)
--- NOTE | 2024-06-20 12:46 | Hospitalist Progress Note ---
Date of Service June 20, 2024 Assessment & Plan (1) Altered mental status: Plan: Patient's called PD on the morning of 06/18 after a phone call between her and the patient became aggressive and then expressive passive SI. 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 - Patient denies SI, thoughts of self-harm, or thoughts of harming others on admission and throughout hospital stay - Behavioral health liaison consulted -Psychiatry consult appreciated --> no acute psychiatric concerns and does not meet 302 criteria for involuntary hold > No evidence for irene on assessment > Acute risk of self-harm is low given denial of SI, future oriented, states strong deterrents to suicide and no past attempts - Suspect underlying personality disorder is at least in part at play here - Patient is fully alert and oriented, able to hold conversation, able to accurately recount events of 06/18, expresses treatment decisions consistent with previously expressed decisions, and acknowledges the risks associated with untreated severe hypertension including stroke and > At this time, she has decision-making capacity and thus would be within her right to leave AGAINST MEDICAL ADVICE > Patient states she has a friend local to the area who would be able to take her home from the hospital (however, patient's said he believes this friend is out of the area currently) > In the event her friend arrives to take her home, she may leave AGAINST MEDICAL ADVICE if she desires. In the meantime, we will continue monitoring and providing treatment - Patient is easily irritated, but she is being cooperative at this time. No pharmacological behavior control is indicated currently > For behavioral emergency: olanzapine 2.5 mg IM x 1 (DO NOT exceed 10mg per 24 hours, check EKG if IM dose required, NEVER co-administer with IM or IV benzodiazepines) > Patient did receive dose of Zyprexa overnight 06/19 - RN witnessed patient crawl out of bed over the bed rail and sat on the ground to look for her shoes. No fall, head strike, or injuries occurred. Patient made 2:1 observation given multiple attempts of getting out of bed overnight and during the day. 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 daily at least while in hospital if she is agreeable - Hydralazine 10 mg IV Q8H PRN with parameters; patient has refused (3) Age-related cognitive decline: Plan Discussed case with behavioral health liaison and psychiatrist Updated via phone call CODE STATUS: Full code Admission and Anticipated Discharge Date Admission Date: June 18, 2024 Subjective Patient seen and evaluated at bedside. She reports "I was supposed to go home but no one could pick me up." She was able to tell me that we are in [place], the correct year and month, but could not tell me that we were in the hospital or the reason for her hospitalization. She reported feeling very cold. I got extra blankets and gave them to her. Her blood pressure remains very elevated. We again discussed treatments for this and risks associated with not treating this. She started to become irritated at this time. She was able to verbalize these risks and continued to deny treatment. A review of systems was difficult to obtain between patient rambling about different stories, only reporting that she was cold regardless of the question, and becoming irritated with my questions. Per RN, patient was crawling in and out of bed last night, became agitated, and received IM Zyprexa. This morning, RN witnessed patient climb over her bed rail and sat on the ground to look for her shoes. No fall, head strike, or injuries occurred per report from RN. Patient made 2:1 observation for safety. Physical Exam Physical Exam: General: No acute distress, nondiaphoretic, frail elderly female. Agitated. Skin: The skin was without rashes, erythema, edema, or bruising. Cardiac: Regular rate and rhythm without murmurs gallops or rubs. Pulm: Clear to auscultation bilaterally without wheezes, rales or rhonchi. No respiratory distress. 96% on room air. Neuro: A&O x4. No focal neurological deficits. Psych: Adequate decision-making capacity. Impaired insight. Impaired judgment. Results & Data Results & Data Vital Signs (Past 12 Hours) Vital Signs Temp Pulse Pulse Resp BP Pulse Ox O2 Del Method 06/20/24 08:10 97.2 F L 90 18 197/111 H 96 Room Air 06/20/24 00:40 89 Laboratory Results Reviewed CBC Reviewed BMP PG Care Time/CCT Total # of Minutes Spent Total Time Spent with Patient: Total time spent is greater than 50% in coordination of care (as documented) at patient's floor/unit and/or counseling patient: Coding Level of Care Code 10655 SUB INP/OBS CARE 2/35MIN Diagnoses Altered mental status R41.82 Hypertension I10 Hypertension type: unspecified Age-related cognitive decline R41.81 (2) Hypertension Hypertension type: unspecified Qualified Code(s): I10 - Essential (primary) hypertension
[2024-06-21 07:13] VITALS: RESP 20; TEMP 97.3
[2024-06-21 10:48] VITALS: O2SAT 94
--- NOTE | 2024-06-21 14:53 | Discharge Summary ---
Discharge Summary Date of Service June 21, 2024 Principal Dx & Hospital Course #1 = Principal Diagnosis (1) Altered mental status: Patient's called PD on the morning of 06/18 after a phone call between her and the patient became aggressive and then expressive passive SI. 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 - Patient denies SI, thoughts of self-harm, or thoughts of harming others on admission and throughout hospital stay - Behavioral health liaison consulted -Psychiatry consult appreciated --> no acute psychiatric concerns and does not meet 302 criteria for involuntary hold > No evidence for irene on assessment > Acute risk of self-harm is low given denial of SI, future oriented, states strong deterrents to suicide and no past attempts - Suspect underlying personality disorder is at least in part at play here - Patient is fully alert and oriented, able to hold conversation, able to accurately recount events of 06/18, expresses treatment decisions consistent with previously expressed decisions, and acknowledges the risks associated with untreated severe hypertension including stroke and > At this time, she has decision-making capacity and thus would be within her right to leave AGAINST MEDICAL ADVICE > Patient states she has a friend local to the area who would be able to take her home from the hospital (however, patient's said he believes this friend is out of the area currently) > In the event her friend arrives to take her home, she may leave AGAINST MEDICAL ADVICE if she desires. In the meantime, we will continue monitoring and providing treatment - Patient did receive dose of Zyprexa overnight 06/19 due to agitation and behavioral disturbances - RN witnessed patient crawl out of bed over the bed rail and sat on the ground to look for her shoes. No fall, head strike, or injuries occurred. 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 daily at least while in hospital if she is agreeable - Hydralazine 10 mg IV Q8H PRN with parameters; patient has refused - Blood pressures returned to normal range on 06/21 with most recent reading of 125/78 (3) Age-related cognitive decline: Plan CODE STATUS: Full code Notes For Next Care Provider Patient admitted with altered mental status/passive suicidal ideations on phone call with who then called police to bring her to the hospital. She was evaluated by psychiatry who felt her acute risk of self-harm is a low and no diagnostic evidence for irene. I do suspect she has undiagnosed underlying personality disorders. Her blood pressure was markedly elevated at times in the hospital, however she refused treatment of this. This is consistent with her previous wishes of a holistic approach and she is not interested in pharmacological treatments. Her blood pressure did return to a normal range. She was not interested in any medications for her blood pressure nor a PCP follow-up appointment. Admission HPI Per Admitting Provider Fatimah is an 84yo female with PMH of age-related cognitive decline, vitamin B12 deficiency, cataracts in both eyes, HTN, frequent falls, malnutrition, and osteoporosis. She presented on 06/18 due to confusion. Police Department called after patient's significant other called this morning due to concerns that patient might harm herself. She believes that her was cheating on her, and reportedly said I hope you can "live with what [I] intend to do". When speaking with patient at bedside, she appears to have rambling speech and incoherent thought processes. She reports that she found out her was treviño this past year. When asked why she is in the hospital, she obfuscate's between several stories. She believes that a spider bit her on her finger twice, but is unable to explain why she is in the hospital. She does note that her is in [place]. When asked about self-harm, she reports that she has no thoughts of SI, harming herself, or harming others (including her ). Patient only takes vitamins on a daily basis. No other medications. She denies all symptoms at this time. When asked if she feels dizzy or lightheaded on her feet, she says that she sometimes feels like her legs are unsteady due to history of broken knees x 2 and broken ankles x 2. She denies any recent falls. She denies headache, dizziness, or lightheadedness at this time. She does report that she has had poor vision since first grade. She reports she does not use ambulatory assist devices at home such as a walker or a cane. She is alert and oriented to name//month/location, but cannot explain why she is in the hospital. Patient is hypertensive at 204/114 at time of admission; vitals otherwise stable. ED course: Labetalol 10mg IV While patient is a poor historian at this time, she denies the following: Recent fever, chills, night sweats, dizziness, lightheadedness, headaches, fainting, falls, chest pain, chest palpitations, SOB, abdominal pain, N/V/D, burning with urination, blood in the urine or stool, or changes in urinary/bowel habits. Spoke on the phone with patient's (Gene). reports that he told her he was leaving for [place] this morning, and she said "do not come back". He then received a phone call on the road via [employer], and the patient was "hysterical" and screaming on the phone. He was unable to understand what she was saying, she then hung up. When she called back again, she was somber, and reportedly said things such as you are "responsible for what happens to me", and that "if this is living, it is not worth it". reports that this happens every time he goes away; however, she has never talked about passive suicidal lesions in such a "direct way" before. He does not believe there is been an acute change in her behavior/mood, but does report that she has "no control over her emotions". He feels that she is a danger to herself. He also feels that he is being verbally abused daily; denies physical abuse at this time. He has been living with her for the past 4 years. Prior to that, the patient was living with her daughter for 15 years, but eventually had to move out (Note: it is unclear at this time if patient's relationship with daughter is somewhat estranged; would double check with before reaching out). The patient has no official diagnosis of mood, bipolar, or borderline personality disorder. She has never been in to see a psychiatrist. Per , she was last seen by her PCP 3 years ago, but has canceled all appointments since. She is not on medications at baseline. In the past, she has refused home health or placement. 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 He is unsure about CODE STATUS or medical proxy in an emergency situation. Admission Exam Per Admitting Provider General: no acute distress; non-toxic appearing; frail appearing; cooperative; SpO2 95% on RA HEENT: normocephalic, atraumatic; no scleral icterus; PERRLA; cataracts noted in both eyes; hearing intact Neck: supple; trachea midline Skin: warm, dry without signs of tenting; no cyanosis; no rashes, bruising, lesions, or erythema noted CV: chest wall NTP; RRR; S1/S2 normal; no murmurs/rubs/gallops; pulses intact and symmetric at radial, DP, and PT Lungs: no acute respiratory distress; symmetrical chest wall expansion; clear breath sounds across all lung pruitt w/o adventitious sounds; no wheezing ABD: Soft, NTP; BS present; no rebound/guarding; no distention MSK: no tics or fasciculations; no edema noted in the LEs b/l, nonerythematous; 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 Agitated at times. Skin: The skin was without rashes, erythema, edema, or bruising. Cardiac: Regular rate in the 80s. Pulm: Normal respiratory effect. 94% on room air. Neuro: A&O x4. No focal neurological deficits. Psych: Adequate decision-making capacity. Impaired insight. Impaired judgment. Discharge Plan Discharge Items Patient Disposition: Home - Self-Care Reason For Visit: AMS WITH PASSIVE SI Discharge Diagnosis: Altered mental status - resolved Hypertension - resolved Activity: Resume your previous activity Non-emergency contact: Primary Care Provider Call non-emergency contact if: you have any medication questions Follow-up/Referrals: Mina Byrne MD [Primary Care Provider] - Diet: Regular Addtl Attending Provider Instructions: Mrs. Jacobo, You were admitted to the hospital due to concern for self-harm. You were seen by a psychiatrist who felt that your acute risk of self-harm is low. Your blood pressures were severely elevated during your time in the hospital, but did trend down and now are within a normal range. There have been no medication changes during this hospitalization per your wishes. You can follow-up with your PCP as needed. It was a pleasure taking care of you while you were in the hospital, Tere Zapata PA-C Pending Studies at Discharge: No Stand-Alone Forms: My [facility], Smoking Cessation Medications and DC Order Prescriptions: Continued Centrum Adult 50 Plus 80 mcg Tablet,Chewable 1 tab PO DAILY Discharge Orders: Discharge Order (Routine); Ordered 06/21/24 Ordered By: Tere Zapata Admission Data Admit Date/Time: 06/18/24 17:57 Attending Provider: Eddie Banuelos Admit Provider: Oswaldo Orellana Primary Care Provider: Mina Byrne V. Other Providers: Oswaldo Orellana; Rachel Espinal; Robert Amanda; Radha Jimenez; Ayanna Osullivan; Marcin Hrebert; Vee Becerra Hospital Stay Data Consultations 06/18/24 14:40 ED Decision to Admit Stat 06/18/24 15:48 Consult Psychiatry Routine 06/18/24 16:20 Consult Behavioral Health Liaison Routine Diagnostic Imagining Performed Chest X-Ray 06/18/24 11:50 SINGLE VIEW CHEST CLINICAL HISTORY: Generalized weakness. FINDINGS: An AP, portable, upright chest radiograph is compared to study dated 05/20/2022. The cardiomediastinal silhouette is top normal for projection. Chronic interstitial thickening similar to previous. There is bibasilar scarring/atelectasis. No airspace consolidation or large pleural effusion is identified. No pneumothorax is seen. The skeletal structures are osteopenic. There are chronic/healed left-sided rib fractures. Compression deformities are suspected in the thoracic region. IMPRESSION: No active disease in the chest. ACT 112: Negative or not required by law. Electronically signed by: Gordon Martinez M.D. 06/18/2024 12:[address] 06/18/24 11:50 CT OF THE HEAD WITHOUT CONTRAST CLINICAL HISTORY: confusion COMPARISON STUDY: No previous studies for comparison. CT DOSE: 625.8 mGy.cm TECHNIQUE: Helical axial images of the head were obtained without IV contrast. Automated exposure control was utilized for the study. A dose lowering technique was utilized adhering to the principles of ALARA. FINDINGS: No acute intracranial hemorrhage, midline shift or mass effect is present. There is moderate dilatation of the lateral and third ventricles. There is mild dilatation of the fourth ventricle. White matter hypodensity suggests small vessel disease. The basal cisterns are patent. No extra-axial collections are present. There are no findings to suggest acute dural sinus thrombosis or acute territorial infarct. No significant calvarial abnormalities are present. Visualized portions of the sinuses and mastoid air cells are clear. IMPRESSION: 1. No acute intracranial findings. 2. Ventricular dilatation, as above. 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 Normal pressure hydrocephalus is within the differential but considered less likely. ACT 112: Negative or not required by law. Electronically signed by: Milan Salas M.D. 06/18/2024 12:53 PM Pending Results Patient Have Any Pending Studies at Discharge: No Discharge Instructions Given to Patient (Per Discharging Provider) Mrs. Jacobo, You were admitted to the hospital due to concern for self-harm. You were seen by a psychiatrist who felt that your acute risk of self-harm is low. Your blood pressures were severely elevated during your time in the hospital, but did trend down and now are within a normal range. There have been no medication changes during this hospitalization per your wishes. You can follow-up with your PCP as needed. It was a pleasure taking care of you while you were in the hospital, Tere Zapata PA-C Total Time Total Time Spent Total Time Spent (In Minutes): Greater than 30 minutes spent completing this discharge process including direct patient care, medication reconciliation, documentation, review of labs and images, and coordination of care. Coding Level of Care Code 61759 INP/OBS DISCH >30 MIN Diagnoses Altered mental status R41.82 Altered mental status type: unspecified Hypertension I10 Hypertension type: unspecified Age-related cognitive decline R41.81
[2024-06-21 15:47] VITALS: BP 158/87; PULSE 90
== END 2024-06-21 16:00 | disposition home or self-care (01) | DRG 948 ==
LOC: ED 11:33 → SUATTDRO 17:57 → EDINP 17:57 → 2N 21:21

== ENCOUNTER 2025-02-15 10:38 | Observation (INO) ==
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
[2025-02-15 11:23] LABS: Hematocrit (blood only) 37.3 % (37.0-47.0); Hemoglobin 11.9 g/dl (12.0-16.0); Immature Granulocytes # (auto) 0.03 K/uL (0.01-0.20); Immature Granulocytes % (auto) 0.3 %; Mean Corpuscular Hemoglobin 29.3 pg (25.0-34.0); Mean Corpuscular Volume 91.9 fL (80.0-100.0); Platelet Count 371 K/uL (130-400); RDW Standard Deviation 47.2 fL (36.4-46.3); Red Blood Count 4.06 M/uL (4.20-5.40); White Blood Count 8.82 K/ul (4.8-10.8)
[2025-02-15 11:47] LABS: Alanine Aminotransferase 14.0 U/L (7-52); Albumin Globulin Ratio 1.4 (0.9-2); Alkaline Phosphatase 75.0 U/L (34-104); Anion Gap 10.0 (3-11); Bilirubin,Total 0.4 mg/dl (0.2-1.0); Blood Urea Nitrogen 24.0 mg/dl (6-23); Calcium 9.2 mg/dl (8.6-10.3); Carbon Dioxide 21.0 mmol/L (21-32); Chloride 112.0 mmol/L (98-107); Creatine Kinase 84.0 U/L (26-192); Creatinine Clr Calc Pharmacy 32.6 ml/min; Globulin 3.0 gm/dl (2.5-4.0); Glucose 114.0 mg/dl (70-99(Fasting)); Magnesium 2.0 mg/dl (1.7-2.4); Potassium 3.7 mmol/L (3.5-5.1); Sodium 143.0 mmol/L (136-145); Total Protein 7.1 gm/dl (6.0-8.3)
[2025-02-15 12:03] LABS: INR 0.9 (0.9-1.1); Prothrombin Time 10.0 Seconds (9.0-12.0)
[2025-02-15] MEDS: OPTIRAY 320 100ml IV ONE (12:04)
--- NOTE | 2025-02-15 12:26 | CT Scan Report ---
CT head/brain wo con CLINICAL HISTORY: confusion. TECHNIQUE: Multiple axial CT images of the head were obtained without contrast. A dose lowering tech nique was utilized adhering to the principles of ALARA. CT DOSE: 1170 COMPARISON: 01/17/2025. FINDINGS: stable falx calcification. No intracranial hemorrhage seen. No mass effect, midline shift, or hydrocephalus. Stable mild chronic small vessel ischemic changes. No skull fractures seen. Visuali zed paranasal sinuses and mastoid air cells are clear. IMPRESSION: No acute findings. ACT 112: Negative or not required by law. The above report was generated using voice recognition software. It may contain grammatical, syntax o r spelling errors. Electronically signed by: Robert Bradley M.D. 02/15/2025 12:25 PM
--- NOTE | 2025-02-15 12:53 | CT Scan Report ---
ABDOMEN AND PELVIS CT WITH IV CONTRAST CT DOSE: 1170.23 mGy.cm HISTORY: Acute left-sided flank pain L flank pain TECHNIQUE: Multiaxial CT images of the abdomen and pelvis were performed following the IV administrat ion of 94 cc of Optiray, A dose lowering technique was utilized adhering to the principles of ALARA. COMPARISON STUDY: None. FINDINGS: Borderline enlarged heart. Dependent bibasilar densities suggest atelectasis. No pneumatosi s or pneumoperitoneum. Limited study secondary to upper exam and positioning and streak artifact from the hip hardware. Unremarkable spleen, pancreas, adrenal glands and gallbladder. There are a few small scattered hypode nse foci within the liver measuring up to 1.2 cm suggestive of cysts. Patency of the hepatic and port al veins. Small probable cysts of the kidneys measure up to 8 mm on the left. Small renal sinus cysts are also present. No hydronephrosis. Pelvic structures are not well visualized. Atherosclerosis of t he aorta. No lymphadenopathy. Mild nonspecific distal esophageal wall thickening. Gaseous distention of the rectum. Moderate colonic fecal retention. No CT evidence of acute appendicitis. Demineralized appearance of the bones. Subacute chronic ununited nondisplaced fractures of the urogynaecologist ior right 10th and 11th ribs. Right hip arthroplasty. ORIF changes of the left proximal femur. Chroni c appearing nondisplaced left-sided rib fractures. IMPRESSION: 1. No acute intra-abdominal or intrapelvic abnormality identified. 2. Subacute to chronic right-sided rib fractures. No definite acute fracture identified. 3. Incidental findings as above. ACT 112: Negative or not required by law. The above report was generated using voice recognition software. It may contain grammatical, syntax o r spelling errors. Electronically signed by: Daljit Campa M.D. 02/15/2025 12:51 PM
[2025-02-15 14:13] LABS: Appearance Urine Clear (Clear); Bacteria Urine Automated None Seen (None Seen); Cast Urine Automated 0-2 /lpf (0-2); Epithelial Cell Urine Auto 0-2 /hpf (0-2); Glucose Urine UA Negative (Negative); RBC Urine Automated 0-2 /hpf (0-2); WBC Urine Automated 0-5 /hpf (0-5)
--- NOTE | 2025-02-15 14:36 | History & Physical Report ---
Date of Service February 15, 2025 Assessment & Plan (1) Dementia with behavioral disturbance: (2) Right rib fracture: (3) Cluster B personality disorder: Plan This is a 68-year-old female with past medical history of dementia with behavioral disturbance, cluster B personality disorder who presented to the emergency department on 02/15/2025 following a fall. While in the emergency department she did undergo a CBC that was stable. Her BMP was with stable renal and electrolytes. Her urinalysis was negative for infection. Her head CT was negative and her CTAP was also negative for acute findings. It did note subacute to chronic right sided rib fractures of the posterior right 10th and 11th ribs. #Dementia with behavioral disturbance Per , noncompliant with Zyprexa outpatient CBC without leukocytosis, BMP with stable renal function and electrolytes Urinalysis negative for infection Head CT/CTAP negative for acute findings Restart Zyprexa 5 mg p.o. at bedtime prior to bed Psychiatry consulted, appreciate recommendations AM CBC, BMP, B12, Vitamin D, Folate, TSH, thiamine #Right rib fractures Per CTAP, appears subacute to chronic posterior 10th/11th rib fractures Tylenol/Toradol for pain Avoid narcotics in the setting of worsening dementia Given recurrent falls, consult PT OT DVT prophylaxis: Lovenox Code: full Case discussed w/ Dr. Orellana at time of admission. Discussed with via phone 02/15. History of Present Illness Primary Care Provider: Mina Byrne MD This is a 68-year-old female with past medical history of dementia with behavioral disturbance, cluster B personality disorder who presented to the emergency department on 02/15/2025 following a fall. Seen and examined this afternoon. She was very upset at time of encounter. She started yelling that she wanted to go home. Stated that she came to the hospital for a urine sample and has been here for 3 hours. She does not feel that she needs admitted to the hospital. She states that she has not fallen and she states that her has not been using her at home. She denies any symptoms at time of encounter including chest pain, shortness of breath, abdominal pain, nausea, vomiting, diarrhea, constipation. Denies any urinary urgency or frequency. Following encounter, spoke with Fatimah's Gene over the phone. Gene states that she has been noncompliant with taking her Zyprexa at home. States that she will often times act like she swallowed it and then spit it out. He states that she will sometimes go days without taking it. He states that when she does take it he does feel that it works but only for a short term. He states that she did fall approximately 2 days ago and has been complaining of a lot of pain. He states that this morning she was sitting on the floor half naked and he could not get her up. He states that he attempted to get her up and get her dressed but she was not able to move which is why he summoned EMS to bring her here. He did state that his goal for her is to return home. He states that after her previous hospital stay, she did not do well with the [facility] house and she wanted to go home shortly after she was placed there. He states that she feels she needs evaluated for psychiatry medications and would like her to have long-acting injections if possible. While in the emergency department she did undergo a CBC that was stable. Her BMP was with stable renal and electrolytes. Her urinalysis was negative for infection. Her head CT was negative and her CTAP was also negative for acute findings. It did note subacute to chronic right sided rib fractures of the posterior right 10th and 11th ribs. Allergies Allergy/AdvReac Type Severity Reaction Status Date / Time acetaminophen [From Tylenol] AdvReac Gastrointestinal Verified 02/08/25 15:39 Upset Home Medications Medication Instructions Recorded Confirmed Type multivitamin with minerals-folic 1 tab PO DAILY 11/26/23 02/15/25 History acid 80 mcg chewable tablet (Centrum Adult 50 Plus) calcium 600 mg (as 1 cap PO DAILY 01/17/25 02/15/25 History carbonate)-vitamin D3 12.5 mcg (500 unit) capsule (Calcium with Vit D3) amlodipine 5 mg tablet (Norvasc) 5 mg PO QAM #90 tabs 02/08/25 02/15/25 Rx olanzapine 5 mg disintegrating 5 mg PO HS #90 tabs 02/08/25 02/15/25 Rx tablet cholecalciferol (vitamin D3) 25 1,000 unit PO DAILY 02/15/25 02/15/25 History mcg (1,000 unit) tablet (Vitamin D3) Past Med/Surg History Problem List (Updated 02/15/25 @ 15:36 by Merna De Leon PA-C) Right rib fracture Acute confusion (Acute) HTN (hypertension) Dementia with behavioral disturbance (Acute) Hard of hearing Delusional disorder, mixed type (Acute) Cluster B personality disorder Delirium due to another medical condition History of hip fracture (07/30/22) Small nondisplaced fracture at the tip of the right greater trochanter Malnutrition Fall (Acute) Frequent falls Cataract of both eyes Health care maintenance Vitamin D deficiency disease Anemia Vitamin B12 deficiency Osteoporosis Medical History (Updated 02/15/25 @ 15:36 by Merna De Leon PA-C) Herpes labialis Altered mental status Closed intertrochanteric fracture of left hip Encounter for pre-operative examination Surgical History History of cataract surgery bilateral History of tonsillectomy History of wisdom tooth extraction History of surgery on right wrist History of ankle surgery Rt History of colonoscopy Status post hip replacement Rt Partial Family History Mother Breast cancer Brother Stroke Father Bladder cancer Other No family history of adverse response to anesthesia Denies family history of Ovarian cancer Prostate cancer Myocardial infarction Colorectal cancer Social History Smoking Status: Never smoker Second Hand Exposure: No; Do You Dip or Chew Tobacco: No; Hx Alcohol Use: No Hx Substance Use: No Preferred Language: Russian Communication Ability: Impaired Visual Impairment: Limited Hearing Ability: Normal Lumber Straightened Required: No Beliefs That Will Affect Care: Cultural marital status: Current Living Situation: Spouse Current Living Situation Comment: Reports arguing with , but feels safe at this time current occupational status: retired How many Children do You have: 1 Feels Safe at Home: No Is there a partner from a previous relationship who is making you feel unsafe now?: No Childhood Exposure to Second-Hand Smoke: No Diet: regular caffeine: Yes during the past year weight has: remained stable Dental Care, Regularly: Yes Physical Activity Frequency: Daily Seatbelt Use: always Sunscreen Use: Yes Assistive Devices: Cane and Walker Physical Exam Physical Exam: General: no acute distress; non-toxic appearing; well-nourished; not cooperative, yelling throughout encounter. HEENT: normocephalic, atraumatic; no scleral icterus; PERRLA w/ EOMs intact; vision and hearing grossly intact Neck: trachea midline Skin: warm, dry without signs of tenting; no cyanosis; no rashes, bruising, lesions, or erythema noted CV:RRR; S1/S2 normal Lungs: no acute respiratory distress; symmetrical chest wall expansion; clear breath sounds across all lung pruitt w/o adventitious sounds; no wheezing MSK: no edema noted in the LEs b/l, nonerythematous Neuro: confused, oriented to person/place but not time. Results & Data Results & Data Vital Signs (Past 12 Hours) Vital Signs Temp Pulse Pulse Resp BP BP Pulse Ox 02/15/25 14:00 75 19 177/108 H 96 02/15/25 12:33 87 15 171/95 H 95 02/15/25 10:58 83 14 96 02/15/25 10:48 88 02/15/25 10:33 36.7 C 85 18 178/104 H 95 02/15/25 10:33 95 02/15/25 10:33 36.7 C 85 18 178/104 H 95 O2 Del Method 02/15/25 14:00 Room Air 02/15/25 12:33 Room Air 02/15/25 10:58 Room Air 02/15/25 10:48 02/15/25 10:33 Room Air 02/15/25 10:33 Room Air 02/15/25 10:33 Room Air Supervising Physician Co-Signing Physician Notes Patient seen and examined, chart reviewed, case discussed with Merna De Leon and I agree with the assessment and plan as above except as otherwise noted Labs and images reviewed 85-year-old female with a past history of cluster B personality disorder, dementia with behavioral disturbance, recurrent admissions for acute on chronic confusion and behavioral disturbance who was brought in with concerns for acute altered mental status and in the context of noncompliant with home Zyprexa. At the bedside history is limited due to agitation and dementia. Patient does not appear acutely encephalopathic or sedated, is agitated with a tangential and inconsistent thought process. previously returned home after a short stay at [place]. Do not see evidence of acute infection on admission. Psychiatry consulted for evaluation of alternatives given decompensation with severe acute agitation/combative behavior and noncompliance with daily medications at home. Agree with above. PG Care Time/CCT Total # of Minutes Spent Total Time Spent with Patient: Total time spent is greater than 50% in coordination of care (as documented) at patient's floor/unit and/or counseling patient: Coding Level of Care Code 65042 INT INP/OBS CARE MIN Diagnoses Dementia with behavioral disturbance F03.918 Closed fracture of multiple ribs of right side, initial encounter S22.41XA Encounter type: initial encounter Fracture type: closed Rib fracture type: multiple ribs Cluster B personality disorder F60.89 (2) Right rib fracture Encounter type: initial encounter Fracture type: closed Rib fracture type: multiple ribs Qualified Code(s): S22.41XA - Multiple fractures of ribs, right side, initial encounter for closed fracture
[2025-02-15] MEDS ORDERED: POLYETHYLENE (MIRALAX) 17 GM PACK PO PRN (14:50)
[2025-02-15] MEDS ORDERED: KETOROLAC TROMETHAMINE 15 MG/ML VIAL IV PRN (14:51)
[2025-02-16 04:57] LABS: Hematocrit (blood only) 36.1 % (37.0-47.0); Hemoglobin 11.9 g/dl (12.0-16.0); Mean Corpuscular Hemoglobin 30.3 pg (25.0-34.0); Mean Corpuscular Volume 91.9 fL (80.0-100.0); Platelet Count 338 K/uL (130-400); RDW Standard Deviation 46.6 fL (36.4-46.3); Red Blood Count 3.93 M/uL (4.20-5.40); White Blood Count 8.70 K/ul (4.8-10.8)
[2025-02-16 05:13] LABS: Anion Gap 7.0 (3-11); Blood Urea Nitrogen 23.0 mg/dl (6-23); Calcium 8.9 mg/dl (8.6-10.3); Carbon Dioxide 25.0 mmol/L (21-32); Chloride 112.0 mmol/L (98-107); Creatinine Clr Calc Pharmacy 26.5 ml/min; Glucose 99.0 mg/dl (70-99(Fasting)); Potassium 3.7 mmol/L (3.5-5.1); Sodium 144.0 mmol/L (136-145)
[2025-02-16 05:28] LABS: Thyroid Stimulating Hormone 2.575 uIu/ml (0.300-4.500)
[2025-02-16 05:59] LABS: Folate (Folic Acid),Ser orPlas > 22.30 ng/ml (>5.38); Vitamin B12 437 pg/ml (180-914)
--- NOTE | 2025-02-16 07:46 | Hospitalist Progress Note ---
Date of Service February 16, 2025 Assessment & Plan (1) Dementia with behavioral disturbance: (2) Right rib fracture: (3) Cluster B personality disorder: Plan This is a 68-year-old female with past medical history of dementia with behavioral disturbance, cluster B personality disorder who presented to the emergency department on 02/15/2025 following a fall. Her reported that she was not taking her olanzapine and that she had a fall two days [employer]. He reports she has been having a lot of pain and anxiety While in the emergency department she did undergo a CBC that was stable. Her BMP was with stable renal and electrolytes. Her urinalysis was negative for infection. Her head CT was negative and her CTAP was also negative for acute findings. It did note subacute to chronic right sided rib fractures of the posterior right 10th and 11th ribs. #Dementia with behavioral disturbance was previously well-controlled on olanzapine 5 mg at bedtime but had been refusing doses according to her - consulted psychiatry discussed with Dr. Locke who did see her last admission as well. Recommended continuing olanzapine but changed to ODT and continue this at discharge hoping for better compliance - her queried whether a injectable long-acting antipsychotic would be possible for her, I discussed this with Dr. Locke and her guidelines recommend against the use of these in elderly patients with dementia because of lack of documented benefit and potential for adverse events - ordered olanzapine 5 mg IM as needed refusal of oral dose - consulted neurology Dr. Galeas and discussed with him. Reviewed his recommendationsavoid cholinesterase inhibitor but recommended trial of Namenda, ordered 5 mg daily. He did not think brain MRI would gear changer at this time, follow-up in the office with him in 2-3 weeks # chest wall pain, subacute to chronic right rib fractures Per CTAP, appears subacute to chronic posterior 10th/11th rib fractures Tylenol/Toradol ordered as needed for pain. currently denying any pain and has not been given any doses of these DVT prophylaxis: Lovenox Code: full discussed plan of care with care coordination, bedside nurse Admission and Anticipated Discharge Date Admission Date: February 15, 2025 Marcelina Ventura is pleasant and cooperative currently. She is not fully oriented to the situation cannot tell me where she is or why. She talked a lot about a cataract surgery she had in the past and that she no longer wears glasses. She is not having any pain at the moment, when asked specifically about her right chest wall pain she denies any current pain and states that it "comes and goes" currently she does not appear anxious she refused her bedtime dose of olanzapine and was given IM 5 mg instead Physical Exam Physical Exam: Last 24h vitals reviewed GEN: no acute distress, sitting in bed, frail-appearing HEENT: pupils equal, sclerae anicteric, moist MM RESP: normal WOB, CTAB CV: reg no mrg chest wall is nontender to palpation, there is no deformity or rash ABD: soft/nt/nd +BT : no ceballos SKIN: warm and dry, no generalized rashes NEURO: AOx person, place, and not to situation. content of speech is circumstantial/tangential. currently calm and cooperative. Face symmetric, speech normal, moves 4 ext spontaneously and equally Results & Data Results & Data Laboratory Results CBC BMP UA, head CT, abd/pelvis CT yesterday were unremarkable B1 pending B12, TSH, folate normal PG Care Time/CCT Total # of Minutes Spent Total Time Spent with Patient: Total time spent is greater than 50% in coordination of care (as documented) at patient's floor/unit and/or counseling patient: Coding Level of Care Code 04243 SUB INP/OBS CARE 3/50MIN Diagnoses Dementia with behavioral disturbance F03.918 Closed fracture of multiple ribs of right side, initial encounter S22.41XA Encounter type: initial encounter Fracture type: closed Rib fracture type: multiple ribs Cluster B personality disorder F60.89 (2) Right rib fracture Encounter type: initial encounter Fracture type: closed Rib fracture type: multiple ribs Qualified Code(s): S22.41XA - Multiple fractures of ribs, right side, initial encounter for closed fracture
[2025-02-16] MEDS: CALCIUM 600MG + VIT D 400 IU TAB PO SCH (09:58)
[2025-02-16] MEDS: CHOLECALCIFEROL 25 MCG (1000 UNITS) TAB PO SCH (09:58)
[2025-02-16] MEDS: ENOXAPARIN INJ 40 MG/0.4 ML SYR SQ SCH (09:58)
--- NOTE | 2025-02-16 11:17 | Psychiatric Consultation ---
Date of Consultation February 16, 2025 Impression / Recommendations Impression Diagnostically consistent with dementia with behavioral disturbance though she was calm and cooperative at time of assessment this morning. Goal in dementia is to avoid medication management of behaviors if possible by maximizing non-pharmacologic strategies for behavioral management. However, given her significant history of aggression and agitation, and goal of maintaining stability at home for as long as possible to avoid personal care/half-way placement, remains reasonable to utilize antipsychotic medication as risk/benefit profile continues to favor treatment. Note all antipsychotic medications carry black box warning for increased risk of all- cause mortality in setting of dementia. While I can understand the family's interest in long acting antipsychotic injection, to increase adherence, they are not FDA-approved for any dementia behavior related indications and their use is specifically advised against by the [place] [employer] for agitation of psychosis in dementia in the absence of another chronic psychotic disorder (i.e. life long schizophrenia). Rather would encourage going back to olanzapine 5mg oral dissolvable formulation, which may require a prior authorization for outpatient script to keep it from being cost prohibitive, as this may improve adherence and lessen risk for her spitting out the medication (or at least getting some absorption prior to spitting it out). Her reported to admission provider that effect may not have been lasting as long as he hoped for, will explore this further and potentially possible to slightly increase the dose or use split doing if necessary. Overall, I spent a total of 60 minutes with this case including review of chart records, review of labwork, review of EKG QTc, direct evaluation of the patient at bedside, counseling the patient, discussion of the patient with the hospitalist provider, discussion with the psychiatric liason during clinical rounds, and documentation in the electronic health record. (1) Dementia with behavioral disturbance: (2) Right rib fracture: Encounter type: initial encounter Rib fracture type: multiple ribs Fracture type: closed Qualified Code(s): S22.41XA - Multiple fractures of ribs, right side, initial encounter for closed fracture Plan -Restart olanzapine 5mg HS ODT formulation -Psych liason to get further collateral re: recent symptoms, medication effects from her -Would not recommend use of any long acting injectable antipsychotic medications, their use is discouraged for those with dementia Psych History Identifying Data Audrey Jaocbo is an 84 y/o woman with a history of HTN, dementia with behavioral disturbance, cluster B personality disorder admitted medically for fall and rib fracture. Psychiatry consulted for recommendations for medication given recent non-adherence with olanzapine following admission in October-November 2024. Chief Complaint "I'm fine". History of Present Illness Audrey is known to the psych consult service from previous consults, most recentl y in October 2024 during an extended admission for dementia with behavioral disturbance and possible delirium. She was discharged from that admission on olanzapine 5mg HS with good benefit seen over the course of her admission. During previous admission she had intermittently refused medications, and historically has stated preference for only holistic approaches to treatment, but did initially start to take olanzapine ODT 5mg HS and gradually improved. She represents after going to a personal nursing home but then quickly transitioning back to living with her spouse. Apparently since returning home she's been non-adherent with her olanzapine (will spit it out) and had a recent fall and would not allow him to intervene. Spouse was interested in possibility of long acting injectable medications. Today she is sitting up in bed, smiles and reports no pain and feeling "fine". oriented to hospital, January and thinks year is 1994. Denies SI. States she stopped taking some of her medications because her doctors in [place] told her "what are they doing giving you all those meds, you don't need those". Also reports she struggles to swallow some pills because they feel like they get stuck in her throat. Allergies Allergy/AdvReac Type Severity Reaction Status Date / Time acetaminophen [From Tylenol] AdvReac Gastrointestinal Verified 02/08/25 15:39 Upset Home Medications Medication Instructions Recorded Confirmed Type multivitamin with minerals-folic 1 tab PO DAILY 11/26/23 02/15/25 History acid 80 mcg chewable tablet (Centrum Adult 50 Plus) calcium 600 mg (as 1 cap PO DAILY 01/17/25 02/15/25 History carbonate)-vitamin D3 12.5 mcg (500 unit) capsule (Calcium with Vit D3) amlodipine 5 mg tablet (Norvasc) 5 mg PO QAM #90 tabs 02/08/25 02/15/25 Rx olanzapine 5 mg disintegrating 5 mg PO HS #90 tabs 02/08/25 02/15/25 Rx tablet cholecalciferol (vitamin D3) 25 1,000 unit PO DAILY 02/15/25 02/15/25 History mcg (1,000 unit) tablet (Vitamin D3) Patient History Medical History (Updated 02/15/25 @ 15:36 by Merna De Leon PA-C) Herpes labialis Altered mental status Closed intertrochanteric fracture of left hip Encounter for pre-operative examination Surgical History History of cataract surgery bilateral History of tonsillectomy History of wisdom tooth extraction History of surgery on right wrist History of ankle surgery Rt History of colonoscopy Status post hip replacement Rt Partial Family History Mother Breast cancer Brother Stroke Father Bladder cancer Other No family history of adverse response to anesthesia Denies family history of Ovarian cancer Prostate cancer Myocardial infarction Colorectal cancer Social History Smoking Status: Never smoker Second Hand Exposure: No; Do You Dip or Chew Tobacco: No; Hx Alcohol Use: No Hx Substance Use: No Preferred Language: Vietnamese Communication Ability: Impaired Visual Impairment: Limited Hearing Ability: Normal Relationship Assoc Required: No Beliefs That Will Affect Care: Cultural marital status: Current Living Situation: Spouse Current Living Situation Comment: Reports arguing with , but feels safe at this time current occupational status: retired How many Children do You have: 1 Feels Safe at Home: Yes Childhood Exposure to Second-Hand Smoke: No Diet: regular caffeine: Yes during the past year weight has: remained stable Dental Care, Regularly: Yes Physical Activity Frequency: Daily Seatbelt Use: always Sunscreen Use: Yes Assistive Devices: Cane and Stair Lift Physical Exam Vital Signs (Past 24 Hours): Last Vital Signs Temp 36.1 C L 02/16/25 07:55 Pulse 70 02/16/25 07:55 Resp 18 02/16/25 07:55 BP 153/75 H 02/16/25 07:55 Pulse Ox 96 02/16/25 07:55 O2 Del Method Room Air 02/16/25 07:55 Results & Data (PSY) Medications Administered Amlodipine Besylate (Amlodipine Besylate 5 Mg Tab) 5 mg PO QAM DENISE Stop: 03/18/25 08:59 Last Admin: 02/16/25 09:58 Dose: 5 mg Documented By: IRON Calcium/Vitamin D (Calcium 600mg + Vit D 400 Iu Tab) 1 tab PO DAILY DENISE Stop: 03/18/25 08:59 Last Admin: 02/16/25 09:58 Dose: 1 tab Documented By: IRON Enoxaparin Sodium (Enoxaparin Inj 40 Mg/0.4 Ml Syr) 40 mg SQ QAM DENISE Stop: 03/18/25 08:59 Last Admin: 02/16/25 09:58 Dose: 40 mg Documented By: IRON Olanzapine (Olanzapine Zydis 5 Mg Orally Dis. Tab) 5 mg PO HS DENISE Stop: 03/17/25 20:59 Last Admin: 02/15/25 21:44 Dose: Not Given Documented By: GEM Vitamin D (Cholecalciferol 25 Mcg (1000 Units) Tab) 25 mcg PO DAILY DENISE Stop: 03/18/25 08:59 Last Admin: 02/16/25 09:58 Dose: 25 mcg Documented By: IRON Coding Level of Care Code 94295 IN/OBS CONSULT LVL 4,60M Diagnoses Dementia with behavioral disturbance F03.918 Closed fracture of multiple ribs of right side, initial encounter S22.41XA Encounter type: initial encounter Rib fracture type: multiple ribs Fracture type: closed
--- NOTE | 2025-02-16 16:24 | Electrocardiogram Report ---
Test Reason : Blood Pressure : */* mmHG Vent. Rate : 80 BPM Atrial Rate : 80 BPM P-R Int : 138 ms QRS Dur : 88 ms QT Int : 376 ms P-R-T Axes : 61 37 43 degrees QTcB Int : 433 ms Normal sinus rhythm Normal ECG When compared with ECG of 17-Jan-2025 17:21, Premature atrial complexes are no longer Present Confirmed by Nico Madrid ([id number]) on 02/16/2025 4:24:24 PM Referred By: Confirmed By: Nico Madrid
--- NOTE | 2025-02-16 16:56 | Neurology Consultation ---
Date of Consultation February 16, 2025 Assessment & Plan (1) Dementia with behavioral disturbance: Plan 85-year-old female with probable dementia with associated behavioral disturbance. Seems to have some difficulty with executive function and some speech difficulty, paraphasic errors, some perseverative speech as well. She could have a frontotemporal lobar degeneration or possibly dysexecutive Alzheimer's variant. She does not exhibit obvious parkinsonian signs which probably makes Lewy body disease less likely. She has had several head CTs which revealed generalized atrophy and associated ventriculomegaly. Her imaging is not highly suggestive of normal pressure hydrocephalus. The medical record indicates that she has been exhibiting aggression, agitation, and delusions. These particular symptoms are probably related to her degenerative dementia. Psychiatry has evaluated this patient and is recommending Zyprexa which is appropriate. Given that she does not present like a typical Alzheimer's patient, and given the possibility of frontotemporal dementia, I would rather avoid a cholinesterase inhibitor to address her cognitive impairment. A trial of memantine, however, would not be unreasonable. Would start with a low dosage, 5 mg/day for 1 week, then increase to 5 mg twice daily thereafter. Further dosage increases could be made in the outpatient setting. Formal neuropsychological evaluation could be of some use. However, given her neurobehavioral status, I doubt she would tolerate this type of testing. Furthermore, given her tendency for agitation and aggression, I doubt she would tolerate a brain MRI. Further, brain MRI would not likely alter her management and is not absolutely necessary at this time. She may follow-up with me in the outpatient clinic in 2 to 3 weeks after discharge. Please call with any questions. History of Present Illness Reason for Consultation: dementia Requesting Physician: Munira Attending Physician: Tere Lombardo MD History of Present Illness The patient is an 85-year-old female who presented to the emergency department February 15, 2025 with confusion, delusional thinking, and hallucinations according to her spouse. She has had a few falls recently as well. She has a history of suspected degenerative dementia with associated behavioral disturbance and have been seen in the emergency department January 17, 2025 for a mental health evaluation. She had previously had a prolonged hospitalization at the [facility], from November 13, 2024 through December 13, 2024 due to encephalopathy in the context of influenza A infection. She had been agitated, paranoid, and exhibiting delusions and hallucinations at that time as well. Currently, she is pleasant, cooperative, and quite talkative. She tends to focus on past events. She has some difficulty answering specific questions and exhibits some occasional errors with semantic speech. Her comprehension is generally intact. She seems to be aware that she has been having some difficulty with cognitive functioning. She does not have any specific memory or cognitive complaint, however. Unfortunately, there are no family members available at the time I evaluated this patient. She was able to relay details of her personal life, marriage, work at the [employer], along with her spouse, they have 1 daughter who is an orthopedic surgeon who lives in [place]. She informs me that she has not driven an automobile for many years. She did have a CT of the head completed at the time of presentation which reveals generalized atrophy and chronic small vessel ischemic disease. There is an element of ventriculomegaly as well. No significant change compared with the previous head CT done January 17, 2025, or earlier this past October. A vitamin B12 level recently was 437, TSH normal as well. She is currently prescribed Zyprexa 5 mg at bedtime. She does not exhibit any signs of parkinsonism such as bradykinesia, resting tremor, or rigidity. Allergies Allergy/AdvReac Type Severity Reaction Status Date / Time acetaminophen [From Tylenol] AdvReac Gastrointestinal Verified 02/08/25 15:39 Upset Home Medications Medication Instructions Recorded Confirmed Type multivitamin with minerals-folic 1 tab PO DAILY 11/26/23 02/15/25 History acid 80 mcg chewable tablet (Centrum Adult 50 Plus) calcium 600 mg (as 1 cap PO DAILY 01/17/25 02/15/25 History carbonate)-vitamin D3 12.5 mcg (500 unit) capsule (Calcium with Vit D3) amlodipine 5 mg tablet (Norvasc) 5 mg PO QAM #90 tabs 02/08/25 02/15/25 Rx olanzapine 5 mg disintegrating 5 mg PO HS #90 tabs 02/08/25 02/15/25 Rx tablet cholecalciferol (vitamin D3) 25 1,000 unit PO DAILY 02/15/25 02/15/25 History mcg (1,000 unit) tablet (Vitamin D3) Patient History Medical History Herpes labialis Altered mental status Closed intertrochanteric fracture of left hip Encounter for pre-operative examination Surgical History History of cataract surgery bilateral History of tonsillectomy History of wisdom tooth extraction History of surgery on right wrist History of ankle surgery Rt History of colonoscopy Status post hip replacement Rt Partial Family History Mother Breast cancer Brother Stroke Father Bladder cancer Other No family history of adverse response to anesthesia Denies family history of Ovarian cancer Prostate cancer Myocardial infarction Colorectal cancer Social History Smoking Status: Never smoker Second Hand Exposure: No; Do You Dip or Chew Tobacco: No; Hx Alcohol Use: No Hx Substance Use: No Preferred Language: Sri [place]an Communication Ability: Impaired Visual Impairment: Limited Hearing Ability: Normal Solid Tire Finisher Required: No Beliefs That Will Affect Care: Cultural marital status: Current Living Situation: Spouse Current Living Situation Comment: Reports arguing with , but feels safe at this time current occupational status: retired How many Children do You have: 1 Feels Safe at Home: Yes Childhood Exposure to Second-Hand Smoke: No Diet: regular caffeine: Yes during the past year weight has: remained stable Dental Care, Regularly: Yes Physical Activity Frequency: Daily Seatbelt Use: always Sunscreen Use: Yes Assistive Devices: Cane and Stair Lift Review of Systems Constitutional: no fever Eyes: + blind spots; no diplopia Ear, Nose, Mouth, Throat: no hearing loss Respiratory: no dyspnea Cardiovascular: no chest pain Gastrointestinal: no nausea and no vomiting Genitourinary: + urinary incontinence Musculoskeletal: no myalgia Integumentary: no rash and no lesions Neurologic: as per Subjective / HPI, + confusion and + memory loss; no tremor(s) and no headache(s) Psychiatric: as per Subjective / HPI; no depression and no anxiety Hematologic / Lymphatic: no easy bleeding and no easy bruising Exam (Neuro) Constitutional: well developed, + thin and + frail appearing; no acute distress Eyes: normal visual pruitt by confrontation, PERRL and EOM intact bilaterally; no nystagmus Neurologic: Oriented to:: Person; negative Place or Time Cognitive Function: negative Abstraction or Calculations Memory: Remote Intact; negative Short Term Intact Attention: Span Intact Speech Fluency: Other (Occasional paraphasic errors, verbal perseverations); negative Dysarthria or Dysfluency Speech Aphasia: negative Aphasia Fund of Knowledge: Past History and Vocabulary; negative Current Events Cranial Nerves: Normal II, III, IV, , V, VII, VIII, IX, X, XI and XII Motor Strength: Normal Lower Extremities and Normal Upper Extremities Motor Tone: Normal Lower Extremities and Normal Upper Extremities Muscle Bulk/Involuntary Movements: No Involuntary Movements Sensation: Light Touch Intact, Pain/Temperature Intact and Proprioception Intact Coordination: negative Dysdiadochokinesia, Finger- Nose Abnormal or Heel-Decker Abnormal Deep Tendon Reflexes: Rt Triceps: 2+, Lt Triceps: 2+, Rt Biceps: 2+, Lt Biceps: 2+, Rt Brachioradialis: 2+, Lt Brachioradialis: 2+, Rt Patellar: 2+, Lt Patellar: 2+, Rt Ankle: 1+ and Lt A nkle: 1+ Results & Data Vital Signs (Past 12 Hours) Vital Signs Temp Pulse Resp BP Pulse Ox O2 Del Method 02/16/25 15:54 36.3 C L 84 18 111/68 96 Room Air 02/16/25 07:55 36.1 C L 70 18 153/75 H 96 Room Air Coding Level of Care Code 40278 INT INP/OBS CARE 3/75MIN Diagnoses Dementia with behavioral disturbance F03.918 Time Spent (min) 75 Comment Total time includes patient contact, chart review, counseling, note preparation
[2025-02-16] MEDS: ACETAMINOPHEN 325 MG TAB PO PRN (17:53)
[2025-02-17] MEDS: ENOXAPARIN INJ 30 MG/0.3 ML SYR SQ SCH (09:00)
[2025-02-17] MEDS: MEMANTINE HCL 5 MG TAB PO SCH (09:01)
--- NOTE | 2025-02-17 19:46 | Hospitalist Progress Note ---
Date of Service February 17, 2025 Assessment & Plan (1) Dementia with behavioral disturbance: (2) Right rib fracture: (3) Cluster B personality disorder: Plan This is a 68-year-old female with past medical history of dementia with behavioral disturbance, cluster B personality disorder who presented to the emergency department on 02/15/2025 following a fall. 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 He reports she has been having a lot of pain and anxiety While in the emergency department she did undergo a CBC that was stable. Her BMP was with stable renal and electrolytes. Her urinalysis was negative for infection. Her head CT was negative and her CTAP was also negative for acute findings. It did note subacute to chronic right sided rib fractures of the posterior right 10th and 11th ribs. #Dementia with behavioral disturbance was previously well-controlled on olanzapine 5 mg at bedtime but had been refusing doses according to her - consulted psychiatry discussed with Dr. Locke who did see her last admission as well. Recommended continuing olanzapine but changed to ODT and continue this at discharge hoping for better compliance - her queried whether a injectable long-acting antipsychotic would be possible for her, I discussed this with Dr. Locke and her guidelines recommend against the use of these in elderly patients with dementia because of lack of documented benefit and potential for adverse events - ordered olanzapine 5 mg IM as needed refusal of oral dose - consulted neurology Dr. Galeas and discussed with him. Reviewed his recommendationsavoid cholinesterase inhibitor but recommended trial of Namenda, ordered 5 mg daily. He did not think brain MRI would foreign exchange trader at this time, follow-up in the office with him in 2-3 weeks stable, continue HS olanzapine and 5 mg memantine - tolerating so far PT recommend SNF rehab because of very unsteady gait and high fall risk # chest wall pain, subacute to chronic right rib fractures Per CTAP, appears subacute to chronic posterior 10th/11th rib fractures stopped toradol since not needing and no doses given no severe pain this hospitalization, has been controlled on po acetaminophen # Hypertension - well controlled after resumption of amlodipine 5 mg daily and resolution of agitation DVT prophylaxis: Lovenox 30 mg Code: full discussed plan of care with care coordination, bedside nurse again 02/17 Admission and Anticipated Discharge Date Admission Date: February 15, 2025 Subjective Pleasantly confused, has been taking her meds past 24h, no agitation last night Today has some L sided midback pain. R chest wall / ribs not painful or tender. Physical Exam Physical Exam: Last 24h vitals reviewed GEN: no acute distress, sitting in bed, frail-appearing HEENT: pupils equal, sclerae anicteric, moist MM RESP: normal WOB, CTAB CV: reg no mrg right chest wall is nontender to palpation, left chest wall nontender to palpation, pain is in L tspine paraspinous area ABD: soft/nt/nd +BT : no ceballos SKIN: warm and dry, no generalized rashes NEURO: AOx person, place, and not to situation. currently calm and cooperative. Face symmetric, speech normal, moves 4 ext spontaneously and equally Results & Data Results & Data Vital Signs (Past 12 Hours) Vital Signs Temp Pulse Resp BP Pulse Ox O2 Del Method 02/17/25 15:30 36.3 C L 71 16 109/69 94 Room Air 02/17/25 08:56 36.2 C L 65 16 111/65 96 Room Air 02/17/25 08:55 Room Air PG Care Time/CCT Total # of Minutes Spent Total Time Spent with Patient: Total time spent is greater than 50% in coordination of care (as documented) at patient's floor/unit and/or counseling patient: Coding Level of Care Code 55775 SUB INP/OBS CARE 2/35MIN Diagnoses Dementia with behavioral disturbance F03.918 Closed fracture of multiple ribs of right side, initial encounter S22.41XA Encounter type: initial encounter Rib fracture type: multiple ribs Fracture type: closed Cluster B personality disorder F60.89 (2) Right rib fracture Encounter type: initial encounter Rib fracture type: multiple ribs Fracture type: closed Qualified Code(s): S22.41XA - Multiple fractures of ribs, right side, initial encounter for closed fracture
--- NOTE | 2025-02-18 19:47 | Hospitalist Progress Note ---
Date of Service February 18, 2025 Assessment & Plan (1) Dementia with behavioral disturbance: (2) Right rib fracture: (3) Cluster B personality disorder: Plan This is a 68-year-old female with past medical history of dementia with behavioral disturbance, cluster B personality disorder who presented to the emergency department on 02/15/2025 following a fall. 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 He reports she has been having a lot of pain and anxiety While in the emergency department she did undergo a CBC that was stable. Her BMP was with stable renal and electrolytes. Her urinalysis was negative for infection. Her head CT was negative and her CTAP was also negative for acute findings. It did note subacute to chronic right sided rib fractures of the posterior right 10th and 11th ribs. #Dementia with behavioral disturbance was previously well-controlled on olanzapine 5 mg at bedtime but had been refusing doses according to her - consulted psychiatry discussed with Dr. Locke who did see her last admission as well. Recommended continuing olanzapine but changed to ODT and continue this at discharge hoping for better compliance - her queried whether a injectable long-acting antipsychotic would be possible for her, I discussed this with Dr. Locke and her guidelines recommend against the use of these in elderly patients with dementia because of lack of documented benefit and potential for adverse events - ordered olanzapine 5 mg IM as needed refusal of oral dose - consulted neurology Dr. Galeas and discussed with him. Reviewed his recommendationsavoid cholinesterase inhibitor but recommended trial of Namenda, ordered 5 mg daily. Increase to bid after a week. He did not think brain MRI would post exchange manager at this time, follow-up in the office with him in 2-3 weeks stable, continue HS olanzapine and 5 mg memantine - tolerating so far PT recommend SNF rehab because of very unsteady gait and high fall risk B12 and folate were normal and B1 pending (empirically replaced last admission) # chest wall pain, subacute to chronic right rib fractures Per CTAP, appears subacute to chronic posterior 10th/11th rib fractures no severe pain this hospitalization, has been controlled on po acetaminophen # Hypertension - well controlled after resumption of amlodipine 5 mg daily and resolution of agitation # Underweight with BMI of 16.6 -RD consulting -albumin normal -lost a kilo since last admission -eats well in hospital DVT prophylaxis: Lovenox 30 mg Code: full Admission and Anticipated Discharge Date Admission Date: February 15, 2025 Subjective Pleasant today in chair by window eating cottage cheese Says Kvng was here this AM and just left No chest or back pain at this time Physical Exam Physical Exam: Last 24h vitals reviewed GEN: no acute distress, in chair HEENT: pupils equal, sclerae anicteric, moist MM RESP: normal WOB, CTAB CV: reg no mrg ABD: soft/nt/nd +BT : no ceballos SKIN: warm and dry, no generalized rashes NEURO: AOx person, place, and not to situation. Better orientation and short term memory as compared to day after admission. currently calm and cooperative. Face symmetric, speech normal, moves 4 ext spontaneously and equally Results & Data Results & Data Vital Signs (Past 12 Hours) Vital Signs Temp Pulse Resp BP Pulse Ox O2 Del Method 02/18/25 19:37 36.7 C 79 18 133/73 94 Room Air 02/18/25 15:34 36.7 C 82 16 111/71 94 Room Air 02/18/25 09:00 Room Air PG Care Time/CCT Total # of Minutes Spent Total Time Spent with Patient: Total time spent is greater than 50% in coordination of care (as documented) at patient's floor/unit and/or counseling patient: Coding Level of Care Code 09695 SUB INP/OBS CARE 2/35MIN Diagnoses Dementia with behavioral disturbance F03.918 Closed fracture of multiple ribs of right side, initial encounter S22.41XA Encounter type: initial encounter Rib fracture type: multiple ribs Fracture type: closed Cluster B personality disorder F60.89 (2) Right rib fracture Encounter type: initial encounter Rib fracture type: multiple ribs Fracture type: closed Qualified Code(s): S22.41XA - Multiple fractures of ribs, right side, initial encounter for closed fracture
--- NOTE | 2025-02-19 16:03 | Hospitalist Progress Note ---
Date of Service February 19, 2025 Assessment & Plan (1) Dementia with behavioral disturbance: (2) Right rib fracture: (3) Cluster B personality disorder: Plan This is a 68-year-old female with past medical history of dementia with behavioral disturbance, cluster B personality disorder who presented to the emergency department on 02/15/2025 following a fall. 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 He reports she has been having a lot of pain and anxiety While in the emergency department she did undergo a CBC that was stable. Her BMP was with stable renal and electrolytes. Her urinalysis was negative for infection. Her head CT was negative and her CTAP was also negative for acute findings. It did note subacute to chronic right sided rib fractures of the posterior right 10th and 11th ribs. #Dementia with behavioral disturbance was previously well-controlled on olanzapine 5 mg at bedtime but had been refusing doses according to her - consulted psychiatry discussed with Dr. Locke who did see her last admission as well. Recommended continuing olanzapine but changed to ODT and continue this at discharge hoping for better compliance - her queried whether a injectable long-acting antipsychotic would be possible for her, I discussed this with Dr. Locke and her guidelines recommend against the use of these in elderly patients with dementia because of lack of documented benefit and potential for adverse events - ordered olanzapine 5 mg IM as needed refusal of oral dose - consulted neurology Dr. Galeas and discussed with him. Reviewed his recommendationsavoid cholinesterase inhibitor but recommended trial of Namenda, ordered 5 mg daily. Increase to bid after a week. He did not think brain MRI would ion exchange operator at this time, follow-up in the office with him in 2-3 weeks stable, continue HS olanzapine and 5 mg memantine - tolerating so far PT recommend SNF rehab because of very unsteady gait and high fall risk, however, she walked 300 feet B12 and folate were normal and B1 pending (empirically replaced last admission) -ordered B1 and B12 oral supplements # chest wall pain, subacute to chronic right rib fractures Per CTAP, appears subacute to chronic posterior 10th/11th rib fractures no severe pain this hospitalization, has been controlled on po acetaminophen # Hypertension - well controlled after resumption of amlodipine 5 mg daily and resolution of agitation # Underweight with BMI of 16.6 -RD consulting -albumin normal -lost a kilo since last admission -eats well in hospital DVT prophylaxis: Lovenox 30 mg Code: full Admission and Anticipated Discharge Date Admission Date: February 15, 2025 Subjective eating lunch ate whole tray feels well she told me a story about how [place], but she was able to find the way back herself. Then she called a lady about it and the lady said "stay on the mountain all night" which she thought was a bad idea has been very pleasant cooperative and taking all of her medications for the last 3 days remains very unsteady and she is a high fall risk but she walked 300 feet with PT yesterday she is not in any pain Physical Exam Physical Exam: Last 24h vitals reviewed GEN: no acute distress, eob eating HEENT: pupils equal, sclerae anicteric, moist MM RESP: normal WOB, CTAB CV: reg no mrg ABD: soft/nt/nd +BT : no ceballos SKIN: warm and dry, no generalized rashes NEURO: AOx person, place, and not to situation. Better orientation and short term memory as compared to day after admission. currently calm and cooperative. Face symmetric, speech normal, moves 4 ext spontaneously and equally. no change Results & Data Results & Data Vital Signs (Past 12 Hours) Vital Signs Temp Pulse Resp BP Pulse Ox O2 Del Method 02/19/25 15:41 36.5 C 76 16 133/78 94 Room Air 02/19/25 08:08 36.3 C L 71 16 153/89 H 94 Room Air PG Care Time/CCT Total # of Minutes Spent Total Time Spent with Patient: Total time spent is greater than 50% in coordination of care (as documented) at patient's floor/unit and/or counseling patient: Coding Level of Care Code 05143 SUB INP/OBS CARE 2/35MIN Diagnoses Dementia with behavioral disturbance F03.918 Closed fracture of multiple ribs of right side, initial encounter S22.41XA Encounter type: initial encounter Rib fracture type: multiple ribs Fracture type: closed Cluster B personality disorder F60.89 (2) Right rib fracture Encounter type: initial encounter Rib fracture type: multiple ribs Fracture type: closed Qualified Code(s): S22.41XA - Multiple fractures of ribs, right side, initial encounter for closed fracture
--- NOTE | 2025-02-19 17:59 | Communication Note ---
Date of Service: February 19, 2025 I left voicemail message with Kvng her for update. I believe he visited yesterday but I missed him.
[2025-02-20 07:09] LABS: Creatinine Clr Calc Pharmacy 35.9 ml/min
[2025-02-20] MEDS: CYANOCOBALAMIN (B-12) 500 MCG TABLET PO SCH (09:51)
[2025-02-20] MEDS: THIAMINE HCL 100 MG TAB PO SCH (09:52)
--- NOTE | 2025-02-20 18:08 | Hospitalist Progress Note ---
Date of Service February 20, 2025 Assessment & Plan (1) Dementia with behavioral disturbance: (2) Right rib fracture: (3) Cluster B personality disorder: Plan This is a 68-year-old female with past medical history of dementia with behavioral disturbance, cluster B personality disorder who presented to the emergency department on 02/15/2025 following a fall. 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 He reports she has been having a lot of pain and anxiety While in the emergency department she did undergo a CBC that was stable. Her BMP was with stable renal and electrolytes. Her urinalysis was negative for infection. Her head CT was negative and her CTAP was also negative for acute findings. It did note subacute to chronic right sided rib fractures of the posterior right 10th and 11th ribs. #Dementia with behavioral disturbance was previously well-controlled on olanzapine 5 mg at bedtime but had been refusing doses according to her - consulted psychiatry discussed with Dr. Locke who did see her last admission as well. Recommended continuing olanzapine but changed to ODT and continue this at discharge hoping for better compliance - her queried whether a injectable long-acting antipsychotic would be possible for her, I discussed this with Dr. Locke and her guidelines recommend against the use of these in elderly patients with dementia because of lack of documented benefit and potential for adverse events - ordered olanzapine 5 mg IM as needed refusal of oral dose - consulted neurology Dr. Galeas and discussed with him. Reviewed his recommendationsavoid cholinesterase inhibitor but recommended trial of Namenda, ordered 5 mg daily. Increase to bid after a week. He did not think brain MRI would change manager at this time, follow-up in the office with him in 2-3 weeks stable, continue HS olanzapine and 5 mg memantine - tolerating so far PT recommend SNF rehab because of very unsteady gait and high fall risk, however, she walked 300 feet B12 and folate were normal and B1 pending (empirically replaced last admission) -ordered B1 and B12 oral supplements # chest wall pain, subacute to chronic right rib fractures # chronic recurrent midback pain Per CTAP, appears subacute to chronic posterior 10th/11th rib fractures no severe pain this hospitalization, has been controlled on po acetaminophen, heating pad # Hypertension - well controlled after resumption of amlodipine 5 mg daily and resolution of agitation # Underweight with BMI of 16.6 -RD consulting -albumin normal -lost a kilo since last admission -eats well in hospital DVT prophylaxis: Lovenox 30 mg Code: full I updated her Kvng at bedside today - discussed PT recs and clinical course - neuro and psych recs. She was too socially isolated at [facility] dementia unit because most residents nonverbal. 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 Does not think rehab stay will improve her gait much if at all (I agree), plans to take home - probably Friday. Admission and Anticipated Discharge Date Admission Date: February 15, 2025 Subjective Audrey taking a nap but woke up and talked to me. vKng visiting Took all meds last 3 days, has been calm Physical Exam 2 Physical Exam: Last 24h vitals reviewed GEN: no acute distress, lying in bed HEENT: pupils equal, sclerae anicteric, moist MM RESP: normal WOB, CTAB CV: reg no mrg ABD: soft/nt/nd +BT : no ceballos SKIN: warm and dry, no generalized rashes NEURO: AOx person, place, and not to situation. remains calm and pleasant Results & Data Results & Data Vital Signs (Past 12 Hours) Vital Signs Temp Pulse Resp BP Pulse Ox O2 Del Method 02/20/25 07:45 36.3 C L 64 16 164/52 H 97 Room Air PG Care Time/CCT Total # of Minutes Spent Total Time Spent with Patient: I personally spent: 35 minutes today on clinical care activities including: reviewing chart notes and vital signs reviewing labs reviewing PT recommendations examining and counseling the patient counseling the patient's family - 20 minutes documentation Coding Level of Care Code 01183 SUB INP/OBS CARE 2/35MIN Diagnoses Dementia with behavioral disturbance F03.918 Closed fracture of multiple ribs of right side, initial encounter S22.41XA Encounter type: initial encounter Rib fracture type: multiple ribs Fracture type: closed Cluster B personality disorder F60.89 (2) Right rib fracture Encounter type: initial encounter Rib fracture type: multiple ribs Fracture type: closed Qualified Code(s): S22.41XA - Multiple fractures of ribs, right side, initial encounter for closed fracture
[2025-02-21 07:17] VITALS: O2SAT 96
--- NOTE | 2025-02-21 15:52 | Hospitalist Progress Note ---
Date of Service February 21, 2025 Assessment & Plan (1) Dementia with behavioral disturbance: (2) Right rib fracture: (3) Cluster B personality disorder: Plan Audrey is a 68-year-old woman with past medical history of dementia with behavioral disturbance, cluster B personality disorder who presented to the emergency department on 02/15/2025 following a fall. 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 He reports she has been having a lot of pain and anxiety While in the emergency department she did undergo a CBC that was stable. Her BMP was with stable renal and electrolytes. Her urinalysis was negative for infection. Her head CT was negative and her CTAP was also negative for acute findings. It did note subacute to chronic right sided rib fractures of the posterior right 10th and 11th ribs. #Dementia with behavioral disturbance was previously well-controlled on olanzapine 5 mg at bedtime but had been refusing several doses prior to admission, leading to agitation and probably contributing to a fall -consulted psychiatry discussed with Dr. Locke who did see her last admission as well. Recommended continuing olanzapine but changed to ODT and continue this at discharge hoping for better compliance -her queried whether a injectable long-acting antipsychotic would be possible for her, I discussed this with Dr. Locke and her guidelines recommend against the use of these in elderly patients with dementia because of lack of documented benefit and potential for adverse events -consulted neurology Dr. Galeas. Possibly frontotemporal dementia. Recommendationsavoid cholinesterase inhibitor but recommended trial of Namenda. Tolerating 5 mg daily, plan to increase to bid on 02/24. He did not think brain MRI would plant changer at this time, follow-up in the office with him in 2- 3 weeks. - I discussed the psychiatrist and neurologist recommendations above with her Kvng in detail on 02/20. -she has been doing very well in hospital on olanzapine ODT 5 mg HS. Only needed an IM dose the night of admission. Since then calm and cooperative and taking all her meds -continues to have unsteady gait and high fall risk, however, is walking 300 and 100 feet with therapy and does not meet criteria for rehab. The fall risk is unlikely to be improved after another SNF stay. Family prefers to have her home - she was in dementia unit at [facility] for a while but was socially isolated and did not benefit. Plan is for home tomorrow morning with resumption of her home caregiver and home health PT/OT. I discussed with Kvng 02/21 and he's expecting early discharge. B12 and folate were normal and B1 normal at 15 (empirically replaced last admission) -ordered B1 and B12 oral supplements # chest wall pain, subacute to chronic right rib fractures # chronic recurrent midback pain Per CTAP, appears subacute to chronic posterior 10th/11th rib fractures no severe pain this hospitalization, has been quickly resolving on po acetaminophen, heating pad # Hypertension - well controlled after resumption of amlodipine 5 mg daily and resolution of agitation. At goal for her age. # Underweight with BMI of 16.6 -RD consulting -albumin normal -lost a kilo since last admission -eats well in hospital -related to baseline thin body habitus and natural history of dementia DVT prophylaxis: Lovenox 30 mg Admission and Anticipated Discharge Date Admission Date: February 15, 2025 Subjective Doing well, in good spirits, eating lunch, Kvng present Did have some L midback pain today, which has been characteristic, resolved after tylenol Physical Exam Physical Exam: Last 24h vitals reviewed GEN: no acute distress, sitting up in chair eating HEENT: pupils equal, sclerae anicteric, moist MM RESP: normal WOB CV: ABD: nondistended : no ceballos SKIN: warm and dry, no generalized rashes NEURO: AOx person, place, and slightly to situation. remains calm and pleasant Results & Data Results & Data Vital Signs (Past 12 Hours) Vital Signs Temp Pulse Resp BP Pulse Ox O2 Del Method 02/21/25 13:43 36.9 C 80 16 128/80 96 Room Air 02/21/25 07:16 36.3 C L 73 16 175/94 H 96 Room Air Diagnostic Findings B1 was 15 PG Care Time/CCT Total # of Minutes Spent Total Time Spent with Patient: Total time spent is greater than 50% in coordination of care (as documented) at patient's floor/unit and/or counseling patient: Coding Level of Care Code 85404 SUB INP/OBS CARE 2/35MIN Diagnoses Dementia with behavioral disturbance F03.918 Closed fracture of multiple ribs of right side, initial encounter S22.41XA Encounter type: initial encounter Rib fracture type: multiple ribs Fracture type: closed Cluster B personality disorder F60.89 (2) Right rib fracture Encounter type: initial encounter Rib fracture type: multiple ribs Fracture type: closed Qualified Code(s): S22.41XA - Multiple fractures of ribs, right side, initial encounter for closed fracture
[2025-02-22 00:37] VITALS: TEMP 97.9
[2025-02-22 07:18] VITALS: PULSE 68; RESP 16
[2025-02-22 09:41] VITALS: BP 157/76
--- NOTE | 2025-02-22 10:52 | Discharge Summary ---
Discharge Summary Date of Service February 22, 2025 Principal Dx & Hospital Course #1 = Principal Diagnosis (1) Dementia with behavioral disturbance: (2) Right rib fracture: (3) Cluster B personality disorder: Ede Ventura is a 68-year-old woman with past medical history of dementia with behavioral disturbance, cluster B personality disorder who presented to the emergency department on 02/15/2025 following a fall. 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 He reports she has been having a lot of pain and anxiety While in the emergency department she did undergo a CBC that was stable. Her BMP was with stable renal and electrolytes. Her urinalysis was negative for infection. Her head CT was negative and her CTAP was also negative for acute findings. It did note subacute to chronic right sided rib fractures of the posterior right 10th and 11th ribs. #Dementia with behavioral disturbance was previously well-controlled on olanzapine 5 mg at bedtime but had been refusing several doses prior to admission, leading to agitation and probably contributing to a fall -consulted psychiatry discussed with Dr. Locke who did see her last admission as well. Recommended continuing olanzapine but changed to ODT and continue this at discharge hoping for better compliance -her queried whether a injectable long-acting antipsychotic would be possible for her, Psychiatry guidelines recommend against the use of these in elderly patients with dementia because of lack of documented benefit and potential for adverse events -consulted neurology Dr. Galeas. Possibly frontotemporal dementia. Recommendationsavoid cholinesterase inhibitor but recommended trial of Namenda. Tolerating 5 mg daily, plan to increase to bid on 02/24. He did not think brain MRI would manager of change at this time, follow-up in the office with him in 2- 3 weeks. - these recommendations from psychiatrist and neurologistwere discussed with her Kvng in detail on 02/20. -she has been doing very well in hospital on olanzapine ODT 5 mg HS. Only needed an IM dose the night of admission. Since then calm and cooperative and taking all her meds -continues to have unsteady gait and high fall risk, however, is walking 300 and 100 feet with therapy and does not meet criteria for rehab. The fall risk is unlikely to be improved after another SNF stay. Family prefers to have her home - she was in dementia unit at [facility] for a while but was socially isolated and did not benefit. Plan is for home tomorrow morning with resumption of her home caregiver and home health PT/OT. B12 and folate were normal and B1 normal at 15 (empirically replaced last admission) -ordered B1 and B12 oral supplements # chest wall pain, subacute to chronic right rib fractures # chronic recurrent midback pain Per CTAP, appears subacute to chronic posterior 10th/11th rib fractures no severe pain this hospitalization, has been quickly resolving on po acetaminophen, heating pad # Hypertension - well controlled after resumption of amlodipine 5 mg daily and resolution of agitation. At goal for her age. # Underweight with BMI of 16.6 -RD consulting -albumin normal -lost a kilo since last admission -eats well in hospital -related to baseline thin body habitus and natural history of dementia DVT prophylaxis: Lovenox 30 mg Notes For Next Care Provider Medication Changes From Visit see list Admission HPI Per Admitting Provider This is a 68-year-old female with past medical history of dementia with behavioral disturbance, cluster B personality disorder who presented to the emergency department on 02/15/2025 following a fall. Seen and examined this afternoon. She was very upset at time of encounter. She started yelling that she wanted to go home. Stated that she came to the hospital for a urine sample and has been here for 3 hours. She does not feel that she needs admitted to the hospital. She states that she has not fallen and she states that her has not been using her at home. She denies any symptoms at time of encounter including chest pain, shortness of breath, abdominal pain, nausea, vomiting, diarrhea, constipation. Denies any urinary urgency or frequency. Following encounter, spoke with Fatimah's Gene over the phone. Gene states that she has been noncompliant with taking her Zyprexa at home. States that she will often times act like she swallowed it and then spit it out. He states that she will sometimes go days without taking it. He states that when she does take it he does feel that it works but only for a short term. He states that she did fall approximately 2 days ago and has been complaining of a lot of pain. He states that this morning she was sitting on the floor half naked and he could not get her up. He states that he attempted to get her up and get her dressed but she was not able to move which is why he summoned EMS to bring her here. He did state that his goal for her is to return home. He states that after her previous hospital stay, she did not do well with the [facility] house and she wanted to go home shortly after she was placed there. He states that she feels she needs evaluated for psychiatry medications and would like her to have long-acting injections if possible. While in the emergency department she did undergo a CBC that was stable. Her BMP was with stable renal and electrolytes. Her urinalysis was negative for infection. Her head CT was negative and her CTAP was also negative for acute findings. It did note subacute to chronic right sided rib fractures of the posterior right 10th and 11th ribs. Discharge Exam Constitutional WD/WN, vitals as above Respiratory normal respiratory effort, lungs clear to auscultation Cardiovascular RRR, no murmur, no edema Gastrointestinal (Abdomen) normal bowel sounds, soft, nontender, no hepatosplenomegaly Psychiatric Orientation: alert, oriented to person, oriented to place and cooperative Discharge Plan Discharge Items Patient Disposition: Home - Home Health Services Reason For Visit: FALL, BEHAVIORAL DISTURBANCES Discharge Diagnosis: Dementia with behavioral disturbance, fall, musculoskeletal back pain Condition on Discharge: Fair Activity: Resume your previous activity Non-emergency contact: Primary Care Provider Call non-emergency contact if: you have any medication questions and your symptoms worsen Follow-up/Referrals: Boone Galeas MD [Physician] - 03/09/25 3:00 pm (2-3 WEEKS) Maria R Madrigal PA-C [Physician Mine Utility Operator] - 02/24/25 1:00 pm (Maria R Madrigal is a Physician Mine Utility Operator that works with Dr. Francois. She will see you for your hospital follow up appointment. Please arrive 15 min. prior to your scheduled appointment time. Thank you!) Diet: Regular Addtl Attending Provider Instructions: Keep taking olanzapine 5 mg at bedtime - we are trying the ODT (oral dissolving tablet) to see whether it will be easier for her to take it Dr. Galeas the neurologist recommended starting memantine for dementia - 5 mg daily through 02/24 then increase to 5 mg twice a day. She is tolerating it so far. Common possible side effects include increase in confusion / agitation / dizziness and rarely low blood counts. If she seems worse on the twice a day dosing, you can go back to once a day or hold it and call her doctor. Dr. Galeas and Dr. Espinal the psychiatrist think she may have frontotemporal dementia. This is different from Alzheimer's disease or vascular dementia which are more common. Judgment / insight, planning, personality and behavior may deteriorate well before memory loss sets in, so it can be harder to recognize. Certain medications like aricept are not recommended in frontotemporal dementia. I recommend a vitamin B12 supplement and a B-complex vitamin Calderon an take Tylenol as needed for your left sided back pain. Make sure to keep your follow up appointments and get medication refills from the outpatient doctors. Hospitalists like me don't have a clinic or nurses/staff to handle messages in a timely fashion and can't provide routine medication refills. Pending Studies at Discharge: No Stand-Alone Forms: My [facility] shopa, Smoking Cessation Medications and DC Order Prescriptions: New memantine 5 mg Tablet 5 mg PO BID Qty: 60 0RF Rx Instructions: take once a day through 02/24 then increase to twice a day acetaminophen 325 mg Tablet 650 mg PO Q4H PRN (Reason: pain) Qty: 0 0RF Rx Instructions: buy over the counter - worked well in the hospital for her rib and back pain Continued amlodipine [Norvasc] 5 mg tablet 5 mg PO QAM Qty: 90 3RF olanzapine 5 mg tablet,disintegrating 5 mg PO HS Qty: 90 3RF Centrum Adult 50 Plus 80 mcg Tablet,Chewable 1 tab PO DAILY Rx Instructions: SPOUSE STATED "REFUSING MEDS" 02/15-otc unable to verify calcium carbonate-vitamin D3 [Calcium 600 with Vitamin D3] 600 mg-12.5 mcg (500 unit) Capsule 1 cap PO DAILY Rx Instructions: SPOUSE STATED "REFUSING MEDS". 02/15-otc unable to verify cholecalciferol (vitamin D3) [Vitamin D3] 25 mcg (1,000 unit) Tablet 1,000 unit PO DAILY Rx Instructions: 02/15-otc unable to verify Discharge Orders: Discharge Order (Routine); Ordered 02/22/25 Ordered By: Cate Cunningham Admission Data Admit Date/Time: 02/15/25 14:50 Attending Provider: Cate Cunningham Admit Provider: Oswaldo Orellana Primary Care Provider: Mina Byrne V. Other Providers: Oswaldo Orellana; Rachel Espinal; Robert Amanda; Radha Jimenez; Ayanna Osullivan; Marcin Herbert; Nayan Torres; Gretchen Hou; Boone Glaeas; Bridgette IoneAry Hospital Stay Data Consultations 02/15/25 14:17 ED Decision to Admit Stat 02/15/25 14:50 Consult Psychiatry Routine 02/16/25 13:27 Consult Neurology Routine Diagnostic Imagining Performed 02/15/25 10:57 CT Abd and Pelvis [CT abd pelvis IV con only] Stat CT head/brain wo con Stat Pending Results Patient Have Any Pending Studies at Discharge: No Discharge Instructions Given to Patient (Per Discharging Provider) Keep taking olanzapine 5 mg at bedtime - we are trying the ODT (oral dissolving tablet) to see whether it will be easier for her to take it Dr. Galeas the neurologist recommended starting memantine for dementia - 5 mg daily through 02/24 then increase to 5 mg twice a day. She is tolerating it so far. Common possible side effects include increase in confusion / agitation / dizziness and rarely low blood counts. If she seems worse on the twice a day dosing, you can go back to once a day or hold it and call her doctor. Dr. Galeas and Dr. Espinal the psychiatrist think she may have frontotemporal dementia. This is different from Alzheimer's disease or vascular dementia which are more common. Judgment / insight, planning, personality and behavior may deteriorate well before memory loss sets in, so it can be harder to recognize. Certain medications like aricept are not recommended in frontotemporal dementia. I recommend a vitamin B12 supplement and a B-complex vitamin Calderon an take Tylenol as needed for your left sided back pain. Make sure to keep your follow up appointments and get medication refills from the outpatient doctors. Hospitalists like me don't have a clinic or nurses/staff to handle messages in a timely fashion and can't provide routine medication refills. Total Time Total Time Spent Total Time Spent (In Minutes): 35 min Coding Level of Care Code 14845 INP/OBS DISCH >30 MIN Diagnoses Dementia with behavioral disturbance F03.918 Closed fracture of multiple ribs of right side, initial encounter S22.41XA Encounter type: initial encounter Rib fracture type: multiple ribs Fracture type: closed Cluster B personality disorder F60.89
== END 2025-02-22 11:49 | disposition home health service (06) | DRG 884 ==
LOC: ED 10:38 → INTOOBSV 14:50 → SUATTDRO 14:50 → 3W 14:50